=== PATIENT | male | born 2005 | race Two or more races ===

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

== ENCOUNTER 2023-08-24 22:33 | Emergency (ER) | payer OTHER, SELFPAY ==
--- OUTSIDE RECORDS SUMMARY | 2023-08-24 22:41 | XMS_ITS ---
Patient Summarization (C-CDA 2.1 CCD) Created on: August 24, 2023 JEAN GARCIA : 2005 Sex: Undifferentiated Author Organization Sample organization Care Team Providers Care Safety Spec Name Role Phone Hubert Luna Unavailable LUCAS COCHRAN Primary Care Unavailable LIBIA GUTIERREZ Attending Unavailable DIMAS, DR ZAVALA Primary Care Unavailable DIMAS, DR ZAVALA Admitting Unavailable HOY, DR ZAVALA Attending Unavailable DIMAS, DR ZAVALA Primary Care Unavailable HAY, DR MUSE Admitting Unavailable HAY, DR MUSE Attending Unavailable ELEAZAR, DR MUSE Consulting Unavailable DIMAS, DR ZAVALA Primary Care Unavailable ZIEBER, DR TORO Contreras Consulting Unavailable HAY, DR MUSE Admitting Unavailable HAY, DR MUSE Attending Unavailable HAY, DR MUSE Consulting Unavailable DIMAS, DR ZAVALA Primary Care Unavailable DIMAS, DR ZAVALA Admitting Unavailable DIMAS, DR ZAVALA Attending Unavailable DIMAS, DR ZAVALA Consulting Unavailable MARQUISE, DR VITO Carcamo Consulting Unavailable DIMAS, DR ZAVALA Primary Care Unavailable HOY, DR ZAVALA Admitting Unavailable DIMAS, DR ZAVALA Attending Unavailable DIMAS, DR ZAVALA Consulting Unavailable Lakhwinder Cochranlas M Primary Care Unavailable Yasmeen Irby Admitting Unavailable Yasmeen Irby Attending Unavailable Dimas, Lucas M Primary Care Unavailable Hubert Luna Attending Unavaila Hubert Tate Admitting Unavaila NILDA Leo Attending Unavailable NILDA SHEN Attending Unavailable Unavailable Primary Care Provider Unavailabl TESSIE Cui JR Referring Unavailable TESSIE DEWITT JR Attending Unavailable TESSIE DEWITT JR Referring Unavailable HOY, LUCAS M Primary Care Unavailable TESSIE DEWITT JR Attending Unavailable TESSIE DEWITT JR Referring Unavailable HOY, LUCAS M Primary Care Unavailable TESSIE DEWITT JR Attending Unavailable TESSIE DEWITT JR Attending Unavailable HOY, LUCAS M Referring Unavailable HOY, LUCAS M Primary Care Unavailable RENATE JR, TESSIE K Attending Unavailable LUCAS COCHRAN Referring Unavailable LUCAS COCHRAN Primary Care Unavailable Encounters Encounter Date Encounter Type Care Provider Facility Start: 07-20-2023 End: 07-20-2023 ambulatory TESSIE DEWITT [facility] Start: 06-28-2023 End: 06-29-2023 ambulatory TESSIE DEWITT JR [facility] Start: 06-14-2023 ambulatory NILDA SHEN Facili ty:[facility] Start: 06-08-2023 End: 06-08-2023 ambulatory TESSIE DEWITT [facility] Start: 05-08-2023 End: 05-09-2023 ambulatory TESSIE DEWITT JR [facility] Start: 05-04-2023 End: 05-05-2023 ambulatory TESSIE DEWITT JR [facility] Start: 05-04-2023 End: 05-04-2023 ambulatory TESSIE Lew RENATE [facility] Start: 05-04-2023 End: 05-04-2023 Office consultation new/estab patient 60 min Tessie Dewitt MD Work Phone: [facility] Comment on above: Urologic disorders ( Primary Dx); Left testicular pain; Epididymal cyst; Other microscopic hematuria Start: 03-01-2023 End: 03-02-2023 ambulatory NILDA SHEN Facility:[facility] Start: 01-25-2022 End: 01-25-[address] LUCAS COCHRAN Facility:[facility] Start: 12-20-2021 End: 12-21-[address] LUCAS COCHRAN Facility:[facility] Start: 12-02-[address] LUCAS COCHRAN Facility :[facility] Start: 11-03-2021 End: 11-04-[address] LUCAS COCHRAN Facility:[facility] Start: 11-02-2021 End: 11-02-2021 Emergency department patient visit LUCAS COCHRAN [facility] Start: 07-24-2021 Office [facility] Start: 07-24-2021 End: 07-24-2021 ambulatory Lucas Cochran [facility] Other Start: 07-10-2021 End: 07-10-2021 Emergency department patient visit Lucas Diallo Alanbrayan Facility:[facility] Start: 07-07-2021 End: 07-07-2021 ambulatory LUCAS DIMAS Facility:[facility] Immunizations Immunization Date Immunization Notes Care Provider Fa cilidavid 12-30-2020 influenza virus vaccine, unspecified formulation Tessie Dewitt Jr., MD Work Phone: [facility] Medications Current Medications Medication Drug Class(es) Dates Sig (Normalized) Sig (Original) CAM Boot as directed (1 source) Start: 07-24-2021 CAM Boot as directed as directed as directed as directed for as directed June, Active naproxen 500 mg oral tablet (2 sources) Nonsteroidal Anti-inflammatory Drug take 1 tablet by mouth every twelve hours at mealtime as needed Naproxen 500 MG 1 tablet with food or milk as needed Orally every 12 hrs for 10 days Active Aleve Not-Taking Payers Date Payer Category Payer Private Health Insurance [facility] [id number] 2022-Present [phone] [address] [address] [place] [address] [id number] 2022 Private Health Insurance [id number] 2021 Unknown 2021 Self-pay 2005 Unknown [id number] 2.16.840.1.750477.3.579.2. 902 2003 Unknown [id number] 2.16.840.1.352655.3.579.2. 593 2003 Unknown [id number] 2.16.840.1.250554.3.579.2. 593 2003 Unknown [id number] 2.16.840.1.890882.3.579.2. 593 2003 Unknown [id number] 2.16.840.1.590645.3.579.2. 1286 2003 Unknown [id number] 2.16.840.1.281872.3.579.2. 1286 2003 Unknown [id number] 2.16.840.1.345466.3.579.2. 1286 2003 Unknown [id number] 2.16.840.1.098630.3.579.2. 1286 2003 Unknown [id number] 2.16.840.1.609313.3.579.2. 1286 2003 Unknown [id number] 2.16.840.1.259122.3.579.2. 1286 2003 Unknown [id number] 2.16.840.1.296425.3.579.2. 1286 1963 Unknown [id number] 2.16.840.1.431974.3.579.2. 593 1963 Unknown [id number] 2.16.840.1.741459.3.579.2. 593 1961 Unknown [id number] 2.16.840.1.713798.3.579.2. 727 1961 Unknown [id number] 2.16.840.1.435084.3.579.2. 727 1959 Unknown [id number] 2.16.840.1.097654.19 1959 Unknown [id number] 2.16.840.1.298274.19 Unknown [id number] 2.16.840.1.103683.3.579.2. 531 Unknown [id number] 2.16.840.1.657864.3.579.2. 531 Plan of Treatment Date Care Activity Detail Author Start: 05-03-2024 Adult BMI Screening Adult BMI Screen ing [facility] Start: 05-03-2024 Tobacco Screening Tobacco Screening [facility] Start: 06-08-2023 End: 06-08-2023 Patient encounter procedure 06/08/2023 8:30 AM EDT Office Visit [facility] [address] [place] [address] [place] [address] [place] [address] Tessie Dewitt Jr., MD [facility] [place], [place] [id number] [facility] Start: 05-04-2023 End: 05-03-2024 US Retroperitoneum Ultrasound retroperitoneal complete Imaging Routine Other microscopic hematuria Expected: 05/04/2023, Expires: 05/03/[address] [facility] Work Phone: Comment on above: Expected: 05/04/2023 , Expires: 05/03/2024 Start: 05-04-2023 End: 05-03-2024 US.doppler Scrotum and testicle Ultrasound scrotum for TORSION with duplex Imaging Routine Other microscopic hematuria Expected: 05/04/2023, Expires: 05/03/2024 [facility] Comment on above: Expected: 05/04/2023 , Expires: 05/03/2024 Start: 10-27-2022 COVID-19 Vaccine ( season) COVID-19 Vaccine ( season) [facility] Start: 10-27-2022 Influenza vaccination Influenza Vacc ine [facility] Start: 2015 Depression Screening Depression Scre ening [facility] Start: 2014 DTaP,Tdap and Td Vac cines (5 - Tdap) DTaP,Tdap and Td Vaccines (5 - Tdap) [facility] Problems Active Problems Problem Classification Problem Date Documented Da te Episodic/Chronic Calculus of urinary tract (2 sources) Calculus of kidney; Translations: [Calculus of kidney] Onset: 06-08-2023 Episodic Cardiac dysrhythmias (2 sources) Palpitations; Translations: [Palpitations] Onset: 11-02-2021 Episodic Genitourinary symptoms and ill-defined conditions (8 sources) Disorder of the urinary system; Translations: [Disorder of urinary system, unspecified] Onset: 05-04-2023 05-04-2023 Episodic Malaise and fatigue (1 source) Other malaise; Translations: [OTHER MALAISE] Onset: 01-29-2022 Episodic Nonspecific chest pain (5 sources) Chest pain, unspecified; Translations: [Other chest pain] Onset: 07-11-2021 Episodic Other diseases of veins and lymphatics (2 sources) Varicocele; Translations: [Scrotal varices] Onset: 05-04-2023 05-04-2023 Episodic Other diseases of veins and lymphatics (1 source) Scrotal varices; Translations: [Scrotal varices] Onset: 05-04-2023 Episodic Other male genital disorders (2 sources) Pain of left testicle; Translations: [Left testicular pain] Onset: 05-04-2023 05-04-2023 Episodic Other male genital disorders (2 sources) Cyst of epididymis; Translations: [Cyst of epididymis] Onset: 05-04-2023 05-04-2023 Episodic Other male genital disorders (2 sources) Left testicular pain; Translations: [Left testicular pain] Onset: 05-04-2023 Episodic Other male genital disorders (1 source) Cyst of epididymis; Translations: [Cyst of epididymis] Onset: 05-04-2023 Episodic Other upper respiratory infections (4 sources) Acute pharyngitis, unspecified; Translations: [ACUTE PHARYNGITIS UNSPECIFIED] Onset: 01-25-2022 Episodic Unclassified (1 source) S99.912A - Unspecified injury of left ankle, initial encounter; Translations: [S99.912A - Unspecified injury of left ankle, initial encounter] Onset: 07-24-2021 Unclassified (1 source) R07.9 - Chest pain, unspecified; Translations: [R07.9 - Chest pain, unspecified] Onset: 07-10-2021 Viral infection (1 source) Viral infection, unspecified; Translations: [VIRAL INFECTION UNSPECIFIED] Onset: 01-29-2022 Episodic Past or Other Problems Problem Classification Problem Date Documented Da te Episodic/Chronic Other injuries and conditions due to external causes (1 source) Unspecified injury of left ankle, initial encounter Onset: 07-24-2021 Resolved: 07-24-2021 Episodic Sprains and strains (1 source) Sprain of unspecified ligament of left ankle, initial encounter Onset: 07-24-2021 Resolved: 07-24-2021 Episodic Procedures Date Procedure Procedure Detail Performing Clinician Start: 06-08-2023 Follow-up visit Follow-up TESSIE DEWITT Results Test Name Value Interpretation Reference Range Facility CT ABDOMEN AND PELVIS WO CON Ton 06-28-2023 CT ABDOMEN AND PELVIS WO CONT CT ABDOMEN AND PELVIS WO CONT CLINICAL INFORMATION: Left scrotal pain, left testicular pain, renal calculus, abnormal ultrasound. TECHNIQUE: Abdominopelvic CT without contrast. All CT scans at this facility use dose modulation, iterative reconstruction, and/or weight based dosing when appropriate to reduce radiation dose to as low as reasonably achievable. COMPARISON: Retroperitoneal scrotal ultrasound 05/08/2023. FINDINGS LOWER CHEST: The lungs are clear. No pleural or pericardial effusion. HEPATOBILIARY: Unenhanced liver and gallbladder unremarkable. No biliary dilation. PANCREAS: Unenhanced pancreas unremarkable. No pancreatic ductal dilation. SPLEEN: The unenhanced spleen is within normal limits. ADRENAL GLANDS: The unenhanced adrenal glands are within normal limits. KIDNEYS, URETERS, AND BLADDER: Punctate nonobstructing right upper pole renal calculus. Unenhanced left kidney unremarkable. No collecting system dilation. Urinary bladder unremarkable. GI TRACT AND PERITONEUM: Small and large bowel are normal in caliber. Prominent rectal stool. Normal appendix. VASCULATURE: Abdominal aorta is nonaneurysmal. LYMPH NODES: Not enlarged. REPRODUCTIVE ORGANS: Prostate unremarkable. MSK: Vertebral body heights and alignment maintained. IMPRESSION: * Punctate nonobstructing right upper pole renal calculus. Otherwise unremarkable. Approved by Resident Blayne Olivera DO on 06/28/2023 10:33 AM Toro Prince MD have personally reviewed the image(s) and agree with and/or edited the report Finalized by Toro Jarvis MD on 06/28/2023 11:29 AM Normal [facility] US RETROPERITONEAL COMPLETEo n 05-08-2023 US RETROPERITONEAL COMPLETE US RETROPERITONEAL COMPLETE Clinical history: Microhematuria Findings: Multiplanar sonography was performed of the kidneys and bladder. Comparison: None. Right kidney 9.1 cm in length. Left kidney 9.5 cm in length. Cortical echogenicity and thickness unremarkable. Punctate echogenic foci consistent with nonobstructive renal calculi in the right kidney. No ascites. Prevoid bladder volume 16 MLS. Bilateral ureteral jets visualized. Impression: * Nonobstructive renal calculi otherwise unremarkable renal ultrasound. Finalized by Hubert Gay MD on 05/08/2023 12:51 PM Normal [facility] US SCROTUM WITH DUPLEXon US SCROTUM WITH DUPLEX US SCROTUM WITH DUPLEX CLINICAL INFORMATION: Other microscopic hematuria, right epididymal cyst. Left varicocele with scrotal pain. TECHNIQUE: Real-time sonographic evaluation of the scrotum and testes was performed with schmidt scale and color flow imaging. Real time schmidt scale, color flow imaging and duplex spectral Doppler waveform analysis evaluation was performed of the major arterial inflow and venous outflow structures of the testicles with arterial and venous spectral waveforms obtained and reviewed in view of the clinical history of hematuria, right epididymal cyst, left varicocele, left scrotal pain . Duplex spectral Doppler document arterial and venous spectral waveforms documented within the major arterial inflow and venous outflow of both testicles. Arterial and venous Doppler duplex spectral waveforms were evaluated. COMPARISON: No relevant prior studies available. FINDINGS: Right testis measures 4.1 x 2.7 x 1.7 cm. Left testis measures 4.3 x 2.7 x 1.9 cm. Homogenous parenchymal echotexture of the testes. No solid testicular mass. Benign 1.3 cm right epididymal head cyst. Normal left epididymis. Symmetric color flow the testes. The arterial and venous waveforms are within normal limits. No hydrocele. No convincing varicocele. IMPRESSION: * No significant scrotal abnormality. Finalized by Juan Lubin MD on 05/08/2023 3:37 PM Normal [facility] Microscopic, urineon 024 Epithelial cells Auto (Urine sed) [#/Area] [facility] Interpretation and review of laboratory results Abnormal [facility] Mucus Ql (Urine sed) PRESENT Abnormal NONE^NONE [facility] RBC Auto (Urine sed) [#/Area] [facility] WBC Auto (Urine sed) [#/Area] [facility] UA (MICROSCOPIC)on 4 MUCOUS PRESENT Abnormal NONE [facility] R.B.CELLS <1 Normal 0-5 [facility] SQUAMOUS EPITHELIUM <1 Normal 0-5 [facility] W.B.CELLS <1 Normal 0-5 [facility] GROUP A STREP CULTUREon 12-29 S. pyogenes Ag Ql (Unsp spec) Culture Observations: NEGATIVE FOR GROUP A STREPTOCOCCUS. Normal [facility] Comment on above: Performed By: #### G RASTCX #### [facility] [address] [address] [address] [place] INFLUENZA A AND B AGon 01-25 INFLUENZA A AG Negative Normal NEGATIVE SEE COMMENT [facility] Comment on above: Performed By: #### I NFLUAB #### [facility] [address] [address] [address] [place] INFLUENZA B AG Negative Normal NEGATIVE SEE COMMENT [facility] Comment on above: Performed By: #### I NFLUAB #### [facility] [address] [place] [address] Dr. [place] INFLUPOS SEE BELOW Normal [facility] Comment on above: Result Comment: NOTE : Live attenuated influenzae vaccine viruses can cause a positive result for a rapid influenza diagnostic test if administered up to 7 days prior to rapid testing. Performed By: #### I NFLUAB #### [facility] [address] [place] [address] Dr. [place] INFLUPOS SEE BELOW Normal [facility] Comment on above: Result Comment: NOTE : Live attenuated influenzae vaccine viruses can cause a positive result for a rapid influenza diagnostic test if administered up to 7 days prior to rapid testing. Performed By: #### I NFLUAB #### [facility] [address] [place] [address] Dr. [place] INTERNAL CONTROLS Within Normal Limits Normal Wi thin Normal Limits [facility] Comment on above: Performed By: #### I NFLUAB #### [facility] [address] [place] [address] Dr. [place] STREPT SCREENon 01-25-2022 STREP SCREEN A Negative Normal NEGATIVE [facility] Comment on above: Performed By: #### S SCRN #### [facility] [address] [place] [address] Dr. [place] ECHOCARDIO M/2D COMPLETEon 1 ECHOCARDIO M/2D COMPLETE Patient: JEAN GARCIA Exam Date: 12/20/2021 : 2005 Gender:M Ordering : DR LUCAS COCHRAN . Admission #: [id number] Family : Order #: [id number] CLICK HERE TO VIEW EXAM ECHOCARDIOGRAM REPORT PROCEDURE: CARDIO PULMONARY ECHOCARDIO M/2D COMP INDICATIONS: Chest pain COMPARISON: None. DESCRIPTION: COMPLETE ECHOCARDIOGRAM Real-time transthoracic echocardiography with 2D, M-mode, spectral and color flow Doppler performed. QUALITY: Technical quality was good. LEFT VENTRICLE: Normal chamber size. Normal left ventricular wall thickness. Global left ventricular systolic function is normal. LV EF: Calculated left ventricular ejection fraction is 66%. DIASTOLIC: Normal diastolic function. ATRIAL SEPTUM: LEFT ATRIUM: Normal chamber size. RIGHT ATRIUM: Normal chamber size. RIGHT VENTRICLE: Normal chamber size. Normal right ventricular systolic function. TRICUSPID VALVE: Normal mobility and thickness. No stenosis with trivial regurgitation. No evidence of pulmonary hypertension. RVSP 17 mmHg MITRAL VALVE: Normal mobility and thickness. No mitral valve prolapse. No evidence of mitral valve stenosis. There is no mitral annular calcification. No mitral regurgitation. AORTIC VALVE: Normal trileaflet appearance. No visible sclerosis. Normal leaflet mobility. No evidence of aortic valve stenosis. No aortic regurgitation. AORTIC ROOT: Normal diameter and appearance. PULMONIC VALVE: Normal thickness and mobility. No stenosis. Trivial regurgitation. PERICARDIUM: No evidence of pericardial effusion. IVC: Collapses with inspirations. Normal size. The coronary sinus is dilated and prominent. PLEURA: CONCLUSION: 1. Normal ventricular sizes and systolic function. LVEF is 65 to 70%. 2. Normal diastolic function. 3. No significant valvular dysfunction. 4. No pericardial effusion. 5. The coronary sinus is prominent and dilated. 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 Agitated saline was not administered during this study to confirm the finding. Adult Echocardiography Procedure Report Left Ventricle LVEDD (3.7 - 5.6 cm): 4.89 cm LVESD (2.2 - 4.0 cm): 3.32 cm LVIVS thickness (0.6 - 1.2 cm): 0.78 cm LVPW thickness (0.5 - 1.0 cm): 0.82 cm e': 0.21 m/s E - e': 4.57 LVOT Max Gradient: 3.25 mm[Hg] Peak Velocity (LVOT): 0.90 m/s Mean Velocity (LVOT): 0.49 m/s LVOT Diameter 1.96 cm Left Ventricular Ejection Fraction: 65-70% Left Atrium LA Volume Index (2D A2C): 38.58 ml, 38.58 ml Left Atrium Systolic Dimension: 2.78 cm Mitral Valve MV E to A Ratio: 2.03, 1.80 Mitral Valve A-Wave Peak Velocity: 0.50 m/s, 0.51 m/s Mitral Valve E-Wave Peak Velocity: 1.01 m/s, 0.92 m/s Right Ventricle RV Internal Diastolic Dimension: 3.00 cm Aorta AO Root Diam: 3.08 cm Ascending Ao Diam: 2.02 cm Aortic Valve AoV Area (Peak Ky): 2.32 cm2, 2.32 cm2 AoV Area (VTI): 2.17 cm2, 2.17 cm2 Peak Velocity(Antegrade Flow): 1.16 m/s Peak Gradient(Antegrade Flow): 5.42 mm[Hg] Mean Velocity(Antegrade Flow): 0.80 m/s Mean Gradient(Antegrade Flow): 2.94 mm[Hg] Velocity Time Integral: 26.00 cm Tricuspid Valve Peak Velocity (Regurgitant Flow): 2.03 m/s, 1.86 m/s Peak Velocity: 0.70 m/s Pulmonic Valve Mean Gradient: 3.59 mm[Hg], 3.41 mm[Hg] Mean Velocity: 0.92 m/s, 0.90 m/s Peak Velocity: 1.17 m/s, 1.09 m/s, 1.18 m/s Peak Gradient: 5.59 mm[Hg], 5.44 mm[Hg], 4.71 mm[Hg] Right Atrium Right Atrium Systolic Pressure: 32.77 ml, 32.77 ml Dictated by: Otto Piedra M.D. on 12/28/2021 at 10:36 Approved by: Otto Piedra M.D. on 12/28/2021 at 10:56 Normal [facility] NM STRESS/REST MULTIon 12-20 NM STRESS/REST MULTI Patient: JEAN GARCIA. Exam Date: 12/20/2021 : 2005 Gender:M Ordering : DR LUCAS COCHRAN . Admission #: [id number] Family : Order #: [id number] CLICK HERE TO VIEW EXAM RADIOLOGY REPORT PROCEDURE: RADIONUCLIDE IMAGING STRESS/REST MULTI COMPARISON: None. INDICATIONS: Chest pain TECHNIQUE: Exam Description: Rest/Stress one day protocol gated SPECT Rest Imagin.3 mCi Tc-99m Cardiolite IV on 12/20/2021 Stress Imaging 29.1 mCi Tc-99m Cardiolite IV on 12/20/2021 Exercise Protocol: Ravi Heart Rate (bpm): Rest: 60 Max: 171 PMHR: 85 Blood Pressure: Rest: 96/68 Max: 142/84 Exercise Time: Minutes: 12 Seconds: 00 Stage Reached: Stage: 4 Mets 13.4 Symptoms: Rest and peak stress ECG findings were abnormal and the exercise portion of the study was Non-diagnostic per attending physician Dr. Flores due to T-waves in aVL at baseline biphasic became inverted during exercise then positive (normal) at end of rest. . For more details please see separate cardiac stress test report. FINDINGS: QUALITY OF STUDY: Good. PERFUSION DEFECT: None. LOCATION: N/A SIZE: N/A. SEVERITY: N/A. TYPE: N/A. WALL MOTION: Normal. LV SIZE: Normal. 92 mL. TID / TCD: None; 1.0 LVEF: Normal. Calculated EF 59%. SUMMARY: Myocardial perfusion imaging study is NORMAL. CONCLUSION: 1. No reversible ischemia 2. Abnormal EKG findings 3. Abnormal exercise study Dictated by: Vito Mabry MD on 12/21/2021 at 08:01 Approved by: Vito Mabry MD on 12/21/2021 at 08:02 Normal [facility] XR ankle LT min 3V*on 2021 XR ankle LT min 3V* [facility] [place] [address] XRay Report Signed Patient: Jean Garcia MR#: [id number] : 2005 Acct:[id number] Age/Sex: 16 / M ADM Date: 07/24/21 Loc: XDUCLY Room: Type: [facility] Attending Dr: Hubert Luna NP-C Ordering Provider: Hubert KEBEDEP-C Date of Service: 07/24/21 XR/XR ankle LT min 3V*: Injury of left ankle, initial encounter Copies to: Hubert Luna CLAIMS EXAMINER-C 3views LEFTankle COMPARISON:None HISTORY: LEFT ankle injury No fracture, dislocation or focal soft tissue abnormality seen. XR/XR ankle LT min 3V* IMPRESSION: No acute findings. Impression dictated by: Richard Cavanaugh M.D.07/24/2021 10:53 AM Dictation Location: [place] [address] Transcribed By: [facility] 07/24/21 1053 Dictated By: Richard Cavanaugh DO 07/24/21 1052 Signed By: 07/24/21 1053 [facility] XR ankle LT min 3V* [facility] Other XR ankle LT min 3V* [facility] Other XR ankle LT min 3V* [facility] Other XR ankle LT min 3V* [address] [email or web address] Other XR ankle LT min 3V* XRay Report [place] [email or web address] Other XR ankle LT min 3V* Signed [employer] Other XR ankle LT min 3V* Patient: Jean Garcia MR#: [id number] [email or web address] Other XR ankle LT min 3V* 726 [employer] Other XR ankle LT min 3V* : 2005 Acct:[id number] [employer] Other XR ankle LT min 3V* Age/Sex: 16 / M ADM Date: 07/24/21 [employer] Other XR ankle LT min 3V* Loc: XDUCLY Room: Type: REG CLI [employer] Other XR ankle LT min 3V* Attending Dr: Hubert Luna [employer] Other XR ankle LT min 3V* Ordering Provider: Hubert Luna [facility] [employer] Other XR ankle LT min 3V* Date of Service: 07/24/21 [employer] Other XR ankle LT min 3V* XR/XR ankle LT min 3V*: Injury of left ankle, initial encounter [employer] Other XR ankle LT min 3V* Copies to: Hubert Luna [facility] [employer] Other XR ankle LT min 3V* 3views LEFTankle [employer] Other XR ankle LT min 3V* COMPARISON:None [employer] Other XR ankle LT min 3V* HISTORY: LEFT ankle injury [employer] Other XR ankle LT min 3V* No fracture, dislocation or focal soft tissue abnormality seen. [employer] Other XR ankle LT min 3V* XR/XR ankle LT min 3V* [employer] Other XR ankle LT min 3V* IMPRESSION: No acute findings. [employer] Other XR ankle LT min 3V* Impression dictated by: Richard Cavanaugh M.D.07/24/2021 10:53 AM [employer] Other XR ankle LT min 3V* Dictation Location: [place] [address] [employer] Other XR ankle LT min 3V* Transcribed By: HI 07/24/21 1053 [employer] Other XR ankle LT min 3V* Dictated By: Richard Cavanaugh DO 07/24/21 1052 [facility] [employer] Other XR ankle LT min 3V* Signed By: [employer] Other XR ankle LT min 3V* 07/24/21 1053 No rth [facility] [employer] Other Basic Metabolic Panelon 06-26 Calcium [Mass/Vol] 9.9 mg/dL Normal 8.2-10.2 [facility] Comment on above: Performed By: #### H S TROP, CBC, BMP, CK, CKMB #### [facility] [address] [place] [address] [place] Chloride [Moles/Vol] 101 mmol/L Normal 95-114 [facility] Comment on above: Performed By: #### H S TROP, CBC, BMP, CK, CKMB #### [facility] [address] CO2 [Moles/Vol] 26.2 mmol/L Normal 22.0-30.0 [facility] Comment on above: Performed By: #### H S TROP, CBC, BMP, CK, CKMB #### [facility] [address] Creatinine [Mass/Vol] 1.13 mg/dL Normal 0.64-1.27 [facility] Comment on above: Performed By: #### H S TROP, CBC, BMP, CK, CKMB #### [facility] [address] [place] [address] [place] Creatinine Clr Calc Pharmacy 85.47 [facility] Comment on above: Result Comment: PERF ORMED BY: [place] [address] PATHOLOGIST LAST SORTER JOHNATHAN ARANDA M.D. Performed By: #### H S TROP, CBC, BMP, CK, CKMB #### [facility] [address] [place] [address] Estimated GFR ( Corrine > 60 Normal [facility] Comment on above: Result Comment: GFR estimated reference range: According to KDOQI guidelines, <60 ml/min/1.73m2 is sufficient to diagnose a patient with chronic kidney disease. Performed By: #### H S TROP, CBC, BMP, CK, CKMB #### [address] Estimated GFR (Non- Am > 60 Normal [facility] Comment on above: Performed By: #### H S TROP, CBC, BMP, CK, CKMB #### [address] Glucose [Mass/Vol] 89 mg/dL Normal 70-100 [facility] Comment on above: Result Comment: [facility] Glucose Reference Range is dependent on time and content of last meal. Glucose of more than 200 mg/dL in a nonstressed, ambulatory subject supports the diagnosis of Diabetes Mellitus. ADA recommended reference range Performed By: #### H S TROP, CBC, BMP, CK, CKMB #### [address] Potassium [Moles/Vol] 4.1 mmol/L Normal 3.5-5.1 [facility] Comment on above: Performed By: #### H S TROP, CBC, BMP, CK, CKMB #### [address] Sodium [Moles/Vol] 138 mmol/L Normal 136-146 [facility] Comment on above: Performed By: #### H S TROP, CBC, BMP, CK, CKMB #### [address] Urea nitrogen [Mass/Vol] 10 mg/dL Normal 9-23 [facility] Comment on above: Performed By: #### H S TROP, CBC, BMP, CK, CKMB #### [address] Complete Blood Count Auto Di ffon 07-10-2021 Basophils (Bld) [#/Vol] 0.1 10*3/uL Normal 0.0-0.1 [facility] Comment on above: Result Comment: PERF ORMED BY: [place] [address] PATHOLOGIST LAST SORTER JOHNATHAN ARANDA M.D. Performed By: #### H S TROP, CBC, BMP, CK, CKMB #### [address] Basophils/100 WBC (Bld) 0.8 % Normal . [facility] Comment on above: Performed By: #### H S TROP, CBC, BMP, CK, CKMB #### [address] Eosinophils (Bld) [#/Vol] 0.0 10*3/uL Normal 0.0-0.7 [facility] Comment on above: Performed By: #### H S TROP, CBC, BMP, CK, CKMB #### [address] Eosinophils/100 WBC (Bld) 0.2 % Normal . [facility] Comment on above: Performed By: #### H S TROP, CBC, BMP, CK, CKMB #### [address] Erythrocyte distribution width (RBC) [Ratio] 12.6 % Normal 12.0-14.8 [facility] Comment on above: Performed By: #### H S TROP, CBC, BMP, CK, CKMB #### [address] Hematocrit (Bld) [Volume fraction] 49.5 % High 37.0-49.0 [facility] Comment on above: Performed By: #### H S TROP, CBC, BMP, CK, CKMB #### [address] Hemoglobin (Bld) [Mass/Vol] 16.5 g/dL High 13.0-16.0 [facility] Comment on above: Performed By: #### H S TROP, CBC, BMP, CK, CKMB #### [address] Lymphocytes (Bld) [#/Vol] 1.3 10*3/uL Normal 1.20-4.8 [facility] Comment on above: Performed By: #### H S TROP, CBC, BMP, CK, CKMB #### [address] Lymphocytes/100 WBC (Bld) 14.0 % Normal . [facility] Comment on above: Performed By: #### H S TROP, CBC, BMP, CK, CKMB #### [address] MCH (RBC) [Entitic mass] 32.4 pg Normal 25.0-35.0 [facility] Comment on above: Performed By: #### H S TROP, CBC, BMP, CK, CKMB #### [address] MCV (RBC) [Entitic vol] 96.8 fL Normal 78-98 [facility] Comment on above: Performed By: #### H S TROP, CBC, BMP, CK, CKMB #### [address] Mean Corpuscular HGB Conc 33.5 g/dL Normal 31.0-37.0 [facility] Comment on above: Performed By: #### H S TROP, CBC, BMP, CK, CKMB #### [address] Monocytes (Bld) [#/Vol] 0.7 10*3/uL Normal 0.1-1.00 [facility] Comment on above: Performed By: #### H S TROP, CBC, BMP, CK, CKMB #### [address] Monocytes/100 WBC (Bld) 7.6 % Normal . [facility] Comment on above: Performed By: #### H S TROP, CBC, BMP, CK, CKMB #### [address] Neutrophils (Bld) [#/Vol] 6.9 10*3/uL Normal 1.2-7.7 [facility] Comment on above: Performed By: #### H S TROP, CBC, BMP, CK, CKMB #### [address] Neutrophils/100 WBC (Bld) 77.4 % Normal . [facility] Comment on above: Performed By: #### H S TROP, CBC, BMP, CK, CKMB #### [address] Nucleated RBC/100 WBC (Bld) [Ratio] 0.0 % Normal 0-0.5 [facility] Comment on above: Performed By: #### H S TROP, CBC, BMP, CK, CKMB #### [address] Platelet mean volume (Bld) [Entitic vol] 7.3 fL Normal 6.6-10.1 [facility] Comment on above: Performed By: #### H S TROP, CBC, BMP, CK, CKMB #### [address] Platelets (Bld) [#/Vol] 253 10*3/uL Normal 150-450 [facility] Comment on above: Performed By: #### H S TROP, CBC, BMP, CK, CKMB #### [address] RBC (Bld) [#/Vol] 5.11 10*6/uL Normal 4.50-5.30 [facility] Comment on above: Performed By: #### H S TROP, CBC, BMP, CK, CKMB #### [address] WBC (Bld) [#/Vol] 9.0 10*3/uL Normal 4.5-13.5 [facility] Comment on above: Performed By: #### H S TROP, CBC, BMP, CK, CKMB #### [address] Creatine Kinaseon 07-10-2021 CK [Catalytic activity/Vol] 111 U/L Normal 22-269 [facility] Comment on above: Performed By: #### H S TROP, CBC, BMP, CK, CKMB #### [address] Creatinine Kinase MBon 07-10 CK.MB [Mass/Vol] 1.7 ng/mL Normal 0.6-6.3 [facility] Comment on above: Performed By: #### H S TROP, CBC, BMP, CK, CKMB #### [address] CKMB Relative Index 1.5 % Normal 0.00-2.50 [facility] Comment on above: Performed By: #### H S TROP, CBC, BMP, CK, CKMB #### [address] D-Dimer High Sensitivityon 0 07-10-2021 D-Dimer High Sensitivity < 200 Normal 0-243 [facility] Comment on above: Result Comment: The reference range for D-dimer is <243 ng/mL D-dimer units. D-dimer results must be used in conjunction with a clinical pretest probability (PTP) assessment model for deep vein thrombosis (DVT) and pulmonary embolism (PE). Results <230 ng/mL d-dimer units can be used as a negative predictor in patients with low or moderate probability for DVT/PE. Results above the exclusion threshold of 230 ng/ml D-dimer units for DVT/PE may indicate the need for further diagnostic testing. D-Dimer can be increased in hospitalized patients due to co-morbid conditions. PERFORMED BY: [place] [address] PATHOLOGIST LAST SORTER JOHNATHAN ARANDA M.D. Performed By: #### P T, PTT, DDIMER #### [address] ECG 12 lead ECGon 07-10-2021 ECG 12 lead ECG [facility] [place] [address] [place] [address] Electrocardiograph Report Signed Patient: Jean Garcia MR#: [id number] [id number] : 2005 Acct:[id number] Age/Sex: 16 / M ADM Date: 07/10/21 Loc: ER Room: Type: [facility] ER Attending Dr: Ordering Provider: Yasmeen Irby MD Date of Service: 07/10/21 ECG/ECG 12 lead ECG: Chest Pain Copies to: Test Reason : Blood Pressure : 134/072 mmHG Vent. Rate : 100 BPM Atrial Rate : 100 BPM P-R Int : 142 ms QRS Dur : 082 ms QT Int : 330 ms P-R-T Axes : 087 089 072 degrees QTc Int : 425 ms Normal sinus rhythm Right atrial enlargement Borderline ECG No previous ECGs available Confirmed by YASMEEN IRBY MD ([id number]) on 07/10/2021 7:47:15 PM Referred By: Electronically Signed By:YASMEEN IRBY MD Transcribed By: MUS Signed By Yasmeen Irby MD 06/26 Normal [facility] Partial Thromboplastin Timeo n 07-10-2021 aPTT Coag (Bld) [Time] 31.3 s Normal 25.1-36.5 [facility] Comment on above: Performed By: #### P T, PTT, DDIMER #### [facility] [address] [place] [address] [place] Prothrombin Time INRon 07-10 INR Coag (PPP) [Relative time] 1.1 {INR} Normal [facility] Comment on above: Result Comment: INR Therapeutic Range A) Pre- and Peroperative OAT started two weeks before surgery. NOT HIP SURGERY: 1.5 - 2.5 HIP SURGERY: 2 - 3 B) Primary and secondary prevention of venous THROMBOSIS: 2 - 3 C) Active venous thrombosis, pulmonary embolism and prevention of recurrent venous thrombosis: 2 - 3 D) Prevention of arterial thromboembolism including patients with mechanical heart valves: 3 - 4.5 Performed By: #### P T, PTT, DDIMER #### [facility] [address] [place] [id number] [place] PT Coag (PPP) [Time] 12.7 s Normal 9.0-12.9 [facility] Comment on above: Performed By: #### P T, PTT, DDIMER #### [facility] [address] [place] [id number] [place] Troponin I High Sensitivityo n 07-10-2021 Troponin I High Sensitivity 3 pg/mL Normal 0-20 [facility] Comment on above: Result Comment: PERF ORMED BY: [place] [address] PATHOLOGIST LAST SORTER JOHNATHAN ARANDA M.D. Performed By: #### P T, PTT, DDIMER #### [address] XR chest 2V*on 07-10-2021 XR chest 2V* [facility] [place] [address] [place] [address] XRay Report Signed Patient: Jean Garcia MR#: [id number] 726 : 2005 Acct:[id number] Age/Sex: 16 / M ADM Date: 07/10/21 Loc: ER Room: Type: [facility] ER Attending Dr: Ordering Provider: Yasmeen Irby MD Date of Service: 07/10/21 XR/XR chest 2V*: Chest Pain Copies to: Yasmeen Irby MD Chest 07/10/2021. CLINICAL DATA: Left chest pain. FINDINGS: 2 views of the chest were obtained. No prior study is available for comparison. The cardiac silhouette is normal in size. The pulmonary vasculature is within normal limits. No pulmonary consolidation or collapse is identified. No pneumothorax or pleural effusion is seen. XR/XR chest 2V* IMPRESSION: No acute cardiopulmonary disease. Impression dictated by: Panfilo Whitfield Jr., M.D.07/10/2021 5:15 PM Dictation Location: [place] [address] Transcribed By: [facility] 07/10/211714 Dictated By: Panfilo Whitfield Jr, MD 07/10/211713 Signed By: 07/10/211714 Normal [facility] CBC AUTO DIFFon 07-07-2021 BASO # 0.1 103/ul Normal 0.0-0.1 [facility] Comment on above: Performed By: #### C BC #### [facility] [address] [place] [address] [address] [place] Basophils/100 WBC (Bld) 1.3 % Normal 0.2-2.0 [facility] Comment on above: Performed By: #### C BC #### [facility] [address] [place] [address] Dr. Aston [place] EO # 0.0 103/ul Normal 0.0-0.7 [facility] Comment on above: Performed By: #### C BC #### [facility] [address] [place] [address] Dr. A[place] Eosinophils/100 WBC (Bld) 0.9 % Normal 0.9-7.0 [facility] Comment on above: Performed By: #### C BC #### [facility] [address] [place] [address] Dr. Aston [place] Erythrocyte distribution width (RBC) [Ratio] 11.8 % Normal 11.0-15.0 [facility] Comment on above: Performed By: #### C BC #### [facility] [address] [place] [address] Dr. Aston El Hematocrit (Bld) [Volume fraction] 46.6 % Normal 42.0-54.0 [facility] Comment on above: Performed By: #### C BC #### [facility] [address] [place] [address] Dr. Aston [place] Hemoglobin (Bld) [Mass/Vol] 15.6 g/dL Normal 14.0-18.0 [facility] Comment on above: Performed By: #### C BC #### [facility] [address] [place] [address] Dr. Aston El IG # 0.02 10e3/ul Normal 0.00-0.03 [facility] Comment on above: Performed By: #### C BC #### [facility] [address] [place] [address] Dr. Aston El IG % 0.4 % Normal 0.0-0.5 [facility] Comment on above: Performed By: #### C BC #### [facility] [address] [place] [address] Dr. Aston El LYMPH # 1.7 103/ul Normal 1.2-3.8 [facility] Comment on above: Performed By: #### C BC #### [facility] [address] [place] [address] Dr. Aston El Lymphocytes/100 WBC (Bld) 36.1 % Normal 20.5-60.0 [facility] Comment on above: Performed By: #### C BC #### [facility] [address] [place] [address] Dr. Aston El MANUAL DIFF REQ NO Normal [facility] Comment on above: Performed By: #### C BC #### [facility] [address] [place] [address] Dr. Aston El MCH (RBC) [Entitic mass] 32.0 pg Normal 25.9-34.0 [facility] Comment on above: Performed By: #### C BC #### [facility] [address] [place] [address] Dr. Aston El MCHC (RBC) [Mass/Vol] 33.5 g/dL Normal 29.9-35.2 [facility] Comment on above: Performed By: #### C BC #### [facility] [address] [place] [address] Dr. Aston El MCV (RBC) [Entitic vol] 95.5 fL Critically high 80.0-94.0 [facility] Comment on above: Performed By: #### C BC #### [facility] [address] [place] [address] Dr. Aston El MONO # 0.5 103/ul Normal 0.3-0.8 [facility] Comment on above: Performed By: #### C BC #### [facility] [address] [place] [address] Dr. Aston El Monocytes/100 WBC (Bld) 10.4 % Normal 1.7-12.0 [facility] Comment on above: Performed By: #### C BC #### [facility] [address] [place] [address] Dr. Aston El NEUT # 2.3 103/ul Normal 1.4-6.5 [facility] Comment on above: Performed By: #### C BC #### [facility] [address] [place] [address] [address] Aston El Neutrophils/100 WBC (Bld) 50.9 % Normal 43.0-75.0 [facility] Comment on above: Performed By: #### C BC #### [facility] [address] [place] [address] [address] Aston El Platelet mean volume (Bld) [Entitic vol] 8.6 fL Critically low 9.5-13.5 [facility] Comment on above: Performed By: #### C BC #### [facility] [address] [place] [address] [address] Aston El PLT 240 103/ul Normal 150-450 [facility] Comment on above: Performed By: #### C BC #### [facility] [address] [place] [address] Dr. Aston El RBC 4.88 106/ul Normal 4.70-6.10 [facility] Comment on above: Performed By: #### C BC #### [facility] [address] [place] [address] Dr. Aston El WBC 4.6 103/ul Normal 4.0-11.0 [facility] Comment on above: Performed By: #### C BC #### [facility] [address] [place] [address] Dr. Aston El D-DIMERon 07-07-2021 D-DIMER 0.19 mg/L FEU Normal 0.19-0.50 [facility] Comment on above: Performed By: #### D DIM #### [facility] [address] [place] [address] Dr. Aston El D-DIMER COMMENTS SEE BELOW Normal [facility] Comment on above: Result Comment: Incr eases in D-Dimer concentration observed with thromboembolic events can be variable due to localization, size, and age of the thrombus. Therefore, a thromboembolic event cannot be diagnosed with certainty on the basis of the reference range. D-Dimers may also be elevated for a variety of disorders including: advanced age, , coronary disease, cancer, liver disease, infection, inflammation, hematoma, DIC, trauma, post-surgery, diabetes, thrombolytic or anticoagulant therapy, stress, and generalized hospitalization. Performed By: #### D DIM #### [facility] [address] [place] [address] Dr. Aston El PROF CHEM 8 (BAS METB)on Anion gap [Moles/Vol] 10.7 mmol/L Normal [facility] Comment on above: Performed By: #### H STROPN, BMP #### [facility] [address] [place] [address] Dr. A[place] Calcium [Mass/Vol] 9.3 mg/dL Normal 8.5-10.1 [facility] Comment on above: Performed By: #### H STROPN, BMP #### [facility] [address] [place] [address] Dr. Aston El Chloride [Moles/Vol] 103 mmol/L Normal 98-107 [facility] Comment on above: Performed By: #### H STROPN, BMP #### [facility] [address] [place] [address] Dr. A[place] CO2 [Moles/Vol] 30.2 mmol/L Normal 21.0-32.0 [facility] Comment on above: Performed By: #### H STROPN, BMP #### [facility] [address] [place] [address] Dr. Aston El Creatinine [Mass/Vol] 1.10 mg/dL Normal 0.70-1.30 [facility] Comment on above: Performed By: #### H STROPN, BMP #### [facility] [address] [place] [address] Dr. A[place] El EGFR-AF GREEK >60 Normal >=60 [facility] Comment on above: Performed By: #### H STROPN, BMP #### [facility] [address] [place] [address] Dr. A[place] EGFR-NON AF GREEK >60 Normal >=60 [facility] Comment on above: Performed By: #### H STROPN, BMP #### [facility] [address] [place], [place] [id number] Dr. Aston El Glucose [Mass/Vol] 94 mg/dL Normal 74-106 [facility] Comment on above: Performed By: #### H OLGA LIDIA, BMP #### [facility] [address] [place] [address] Dr. Aston El Potassium [Moles/Vol] 3.9 mmol/L Normal 3.5-5.1 [facility] Comment on above: Performed By: #### H OLGA LIDIA, BMP #### [facility] [address] [place] [address] Dr. A[place] Sodium [Moles/Vol] 140 mmol/L Normal 136-145 [facility] Comment on above: Performed By: #### H OLGA LIDIA, BMP #### [facility] [address] [place] [address] Dr. Aston El Urea nitrogen [Mass/Vol] 11.0 mg/dL Normal 6.4-19.3 [facility] Comment on above: Performed By: #### H OLGA LIDIA, BMP #### [facility] [address] [place] [address] Dr. Aston El Urea nitrogen/Creatinine [Mass ratio] 10.0 mg/mg Normal [facility] Comment on above: Performed By: #### H OLGA LIDIA, BMP #### [facility] [address] [place] [address] Dr. Aston El TROPONIN, HIGH SENSITIVITYon 07-07-2021 HSTROP 4.2 pg/mL Normal 4.0-76.1 [facility] Comment on above: Result Comment: CUT- OFF POINTS HAVE BEEN ESTABLISHED BASED ON THE FOURTH UNIVERSAL DEFINITIONS OF MYOCARDIAL INFARCTION. THE UPPER REFERENCE LIMIT (URL) OF TROPONIN, DEFINED THE 99TH PERCENTILE OF cTnI DISTRIBUTION IN A REFERENCE POPULATION, HAS BEEN CONFIRMED THE DECISION THRESHOLD FOR [place] DIAGNOSIS. Performed By: #### H OLGA LIDIA, BMP #### [facility] [address] [place] [address] Dr. Aston El XR CHEST 1 Von 07-07-2021 XR CHEST 1 V EXAMINATION: XR CHEST 1 V HISTORY: CHEST PAIN, UNSPECIFIED COMPARISON: XR chest 03/10/2019 FINDINGS: LUNGS: No significant pulmonary parenchymal abnormalities. VASCULATURE: No increased pulmonary vasculature. PLEURA: No pneumothorax, effusion, or pleural thickening. CARDIAC: No cardiomegaly or cardiac silhouette abnormality. MEDIASTINUM: No visible mass or adenopathy. BONES: No fracture or visible bone lesion. OTHER: Negative. IMPRESSION: 1. Normal examination. Electronically authenticated by: TORO ALCANTAR Date: 2021-07-07 10:10 Normal [facility] Social History Date Type Detail Facility Start: 08-07-2018 End: 05-04-2023 Sex Assigned At [employer] [facility] Start: 05-04-2023 Tobacco smoking stat [facility] Never smoked tobacco [facility] walkby [facility] Start: 05-04-2023 Tobacco use and exposure Smokeless tobacco non-user [facility] Start: 05-04-2023 Alcohol intake Lifetime non-d linda (finding) [facility] Start: 08-07-2018 End: 05-04-2023 [facility] Start: 2005 Sex Assigned At Not on file [employer] Unknown if ever smoked [employer] [facility] Childcare Unknown [facility] Vital Signs Date Time Vital Sign Value Performing Clinician Facility 05-04-2023 10:20-0500 Body height 170.2 cm Tessie Dewitt Jr., MD Work Phone: [facility] 05-04-2023 10:20-0500 Body mass index (BMI) [Ratio] 19.73 kg/m2 Tessie Dewitt Jr., MD Work Phone: [facility] 05-04-2023 10:20-0500 Body weight 57.15 kg Tessie Dewitt Jr., MD Work Phone: [facility] 05-04-2023 10:20-0500 Diastolic blood pressure 63 mm[Hg] Tessie Dewitt Jr., MD Work Phone: [facility] 05-04-2023 10:20-0500 Heart rate 74 /min Tessie Dewitt Jr., MD Work Phone: [facility] 05-04-2023 10:20-0500 Systolic blood pressure 116 mm[Hg] Tessie Dewitt Jr., MD Work Phone: [facility] 07-24-2021 11:00-0400 Body height 167.64 cm Hubert Luna Other [facility] Other 07-24-2021 11:00-0400 Body mass index (BMI) [Ratio] 21.04 kg/m2 Hubert Luna Other [facility] Other 07-24-2021 11:00-0400 Body temperature 98 [degF] Hubert Luna Other [facility] Other 07-24-2021 11:00-0400 Body weight 59.15 kg Hubert Luna Other [facility] Other 07-24-2021 11:00-0400 Diastolic blood pressure 68 mm[Hg] Hubert Luna Other [facility] Other 07-24-2021 11:00-0400 Respiratory rate 18 /min Hubert Luna Other [facility] Other 07-24-2021 11:00-0400 SaO2% (BldA) [Mass fraction] 98 % Hubert Luna Other [facility] Other 07-24-2021 11:00-0400 Systolic blood pressure 116 mm[Hg] Hubert Luna Other [facility] Other History of Present illness Narrative 05-04-2023 Tessie Dewitt Jr., MD - 05/04/2023 10:00 AM EST Note Date & Type Note Facility 05-04-2023 History of Present illness Narrative Images from the original note were not included. [address] [place] [address] [address] [facility] [id number] Patient: Jean Garcia Date of : 2005 Encounter Date: 05/04/2023 History of Present Illness: Chief Complaint: Left scrotal pain. The patient is a 18 y.o. male, a new patient, and is here for chief complaint left scrotal pain. Presents with his grandfather. Patient notes he has had the discomfort for awhile, which does radiate up into his abdomen, but it has gotten a lot worse the last 6 months. It has not constant but rather intermittent. It was a size he notes of a grape, now smaller more the size of an almond. 0 voiding complaints. Remote hypospadias repair elsewhere. No personal or family history of bleeding disorder. No history of stones, gross hematuria, or UTIs. He notes he gets difficulty with walking and shooting pain going up to his stomach with this. Does have keloids. Urinalysis today: No results for input(s): EXTPOCURCO , EXTPOCURCH , EXTPOCAPP , EXTPOCURBS , EXTPOCURBIL , EXTPOCUKET , EXTPOCUSPG , EXTPOCUHGB , EXTPOCUPRO , EXTPOCUURO , EXTPOCULEU , EXTPOCUNIT , EXTPOCUWBC , EXTPOCUBLD , EXTPOCURBC , EXTPOCUCRY , EXTPOCUBAC , EXTPOCUTREP , EXTPOCUPH , EXTPOCULEE in the last 72 hours. Last BUN and creatinine: No results found for: BUN No results found for: CREATININE Last PSA: No results found for: PSA No results found for: PROSTATICSP Past Medical, Family, and Social History Update: The following portions of the patient's history were reviewed and updated as appropriate: allergies, current medications, past family history, past medical history, past social history, past surgical history and problem list. Past Medical History: Diagnosis Date Keloid No past surgical history on file. History reviewed. No pertinent family history. No current outpatient medications on file. No current facility-administered medications for this visit. (All medications reviewed and updated by provider since last office visit or hospitalization) Allergies: Patient has no known allergies. Tobacco History: Social History Tobacco Use Smoking Status Never Smokeless Tobacco Never (If patient a smoker, smoking cessation counseling offered) Social History: Social History Substance and Sexual Activity Alcohol Use Never Review of Systems: Constitutional: Normal activity and energy. Patient denies change in appetite, weight loss or gain, malaise (depression), chills, fever, or diaphoresis (sweating). Eyes: Patient denies vision changes or diplopia (double vision). Ears, Nose, Nose and Throat: Patient denies tinnitus (ringing in ears), hearing loss, epistaxis (nose bleed), hoarseness, and dysphagia (hard to swallow). Respiratory: Patient denies dyspnea (shortness of breath), cough, hemotypsis (blood in sputum), and wheezing. Cardiovascular: Patient denies chest pain, palpitations, and shortness of breath. Gastrointestinal: Pt. States The upper part of his stomach is in pain. Hard to sit when the pain starts for long periods of time. Musculoskeletal: Patient denies joint pain/stiffness, weakness, swelling, and backache. Neurologic: Patient denies weakness, dizziness, loss of consciousness, transient ischemic symptoms, and seizures. Integument: Patient denies rashes and non-healing lesions. Psychiatric: Patient denies increased nervousness, mood changes, or depression. Endocrine: Patient denies thyroid trouble, heat or cold intolerance, diabetes, excessive thirst, hunger, and excessive urination. Blood Disorders: Patient denies anemia, easy bruising, and easy bleeding. Physical Exam: BP 116/63 Pulse 74 Ht 170.2 cm (5' 7 ) Wt 57.2 kg (126 lb) BMI 19.73 kg/m Alert, pleasant, without signs of acute illness, and in no distress. Respirations unlabored . Skin dry on examination now. No flank or abdominal masses or tenderness. Normal gait. Normal scrotum. Penis by history status post hypospadias repair appears circumcised nicely with nice open meatus on the glans and no evidence of fistula. Testicles descended bilaterally without mass or tenderness. No palpable inguinal hernia. Small right epididymal head cyst. Grade 2-3 left varicocele. Left forearm keloid Assessment and Plan: Jean was seen today for varicocele. Diagnoses and all orders for this visit: Urologic disorders Left testicular pain Epididymal cyst Other microscopic hematuria - Ultrasound retroperitoneal complete; Future - Ultrasound scrotum for TORSION with duplex; Future - Microscopic, urine; Future Problem List Unprioritized Urologic disorders - Primary Overview 1. Single without paternity with Left orchalgia, progressive onset estimated October 2022 with left varicocele ultrasound elsewhere 12/14/2022, apparent grade 2-3 exam 05/04/2023; grandfather Bryan 2. Right epididymal cyst ultrasound elsewhere 1.7 cm on 12/14/2022 3. Concern for microscopic hematuria urine dip elsewhere 03/13/2023 4. Significant keloid formation 5. By history hypospadias repair at [facility] as an Other microscopic hematuria Relevant Orders Ultrasound retroperitoneal complete Ultrasound scrotum for TORSION with duplex Microscopic, urine Left testicular pain Epididymal cyst Follow-up: I reviewed the followin. Discharge summary regarding apnea 2003 2. Urine dip positive trace blood 03/13/2023 3. Ultrasound report elsewhere 12/14/2022 1.7 cm right epididymal cyst and left varicocele normal testicles 4. Urology provider note 03/13/2023 regarding left-sided scrotal pain, epididymal cyst, and varicocele with planned referral because partner who does varicocele repair was going away on maternity leave Epididymal cysts, they are benign nature, and natural history and management options were described. We reviewed these are not malignant and are not associated with testis cancer. They may enlarge, and additional cysts may appear. Asymptomatic cysts may become asymptomatic, and these can be managed with excision, which procedure can result in obstruction of the ejaculatory tract on the involved side and potentially infertility. I reviewed 15% of adult men have a varicocele, and 80-85% of the time these do not cause fertility issue. I reviewed only extremely rarely is a varicocele operated for pain, and I actually have never done so in 29 years. We discussed possible extratesticular cause of scrotal pain from a renal issue. I discussed the criteria for documentation of microscopic hematuria, at least 3-5 red or 3-5 white cells per high-powered field microscopy in the absence of other obvious benign source of hematuria on a microscopic urinalysis specimen. We reviewed that to date this patient's evaluation as not demonstrated these findings. Grandfather mention there was some concern regarding possible infertility with a varicocele, and we did discuss we certainly could order a semen analysis to check, but the patient and grandfather today declined that. Return 1 month with confirmatory scrotal ultrasound, retroperitoneal ultrasound, and microscopic urinalysis. I reviewed there are substantial potential risks and complications with varicocele repair including but not limited to anesthetic risks, testis atrophy, hydrocele formation, persistent/recurrent varicocele, and persistent or increased pain among others. We reviewed our facility/group does not offer venous embolization, and that could be pursued if desired by the patient perhaps at [facility]. Thank you very much. I appreciate being asked to help with this patient's care. TESSIE DEWITT JR, MD This note was created with the assistance of a speech recognition program. While intending to generate a timely document that accurately reflects the content of the visit, no guarantee can be provided that every grammatical or spelling mistake has been or will be identified or corrected. Thank you for your understanding. documented in this encounter [facility] Evaluation note 07-24-2021 Note Date & Type Note Facility 07-24-2021 Evaluation note Encounter Date Diagnosis Assessment Notes June, Injury of left ankle, initial encounter (ICD-10 - S99.912A) June, Sprain of left ankle, unspecified ligament, initial encounter (ICD-10 - S93.402A) Rest, ice for 20 minutes every hour. Keep your ankle elevated. Walk on foot as tolerated. Follow up with pcp in 14 days if no improvement. Complete excercises as directed. I personally reviewed and interrpreuted all of the xray images. No appreciable fractures or bony abnormalities. I suspect the patient has developed a sprain in one of the ligaments of his ankle. I did consider septic arthtritis, however, given that there is no warmth on palpation, erythema at the knee joint, and that he is able to range the knee, septic arthritis is unlikely. Given that there is no joint laxity, complete tear of ligament is unlikely. Advised to Rice his ankle. Will place angel wrap on the ankle. I advised him to follow up with his pcp in 7 days if pain does not improve. Pt understands and agrees with the plan. [facility] Other Evaluation note Note Date & Type Note Facility Evaluation note Diagnosis Urologic disorders- Primary Unspecified disorder of urethra and urinary tract Left testicular pain Epididymal cyst Other specified disorder of male genital organs Other microscopic hematuria documented in this encounter [facility] Instructions Note Date & Type Note Facility Instructions Not on filedocumented in this en counter [facility] Summary Purpose Family History No Family History Records FoundNo Family History Records FoundNo Family History Records FoundNo Family History Records FoundNo Family History Records FoundNo Family History Records FoundNo Family History Records Found Advance Directives No Advanced Directives Records FoundNo Advanced Directives Records FoundNo Advanced Directives Records FoundNo Advanced Directives Records FoundNo Advanced Directives Records FoundNo Advanced Directives Records FoundNo Advanced Directives Records Found Additional Source Comments REASON FOR VISIT (unrecogniz ed section and content) Reason Comments Varicocele (unrecognized sect ion and content) No Status Records FoundNo Status Records FoundNo Status Records FoundNo Status Records FoundNo Status Records FoundNo Status Records FoundNo Status Records Found INFORMATION SOURCE (unrecogn ized section and content) DATE CREATED AUTHOR 12/22/2021 [facility] DATE CREATED AUTHOR AUTHOR'S ORGANIZ ATION 03/23/2022 [facility] DATE CREATED AUTHOR AUTHOR'S ORGANIZ ATION 04/01/2022 [facility] DATE CREATED AUTHOR AUTHOR'S ORGANIZ ATION 03/03/2023 [facility] DATE CREATED AUTHOR AUTHOR'S ORGANIZ ATION 05/06/2023 [facility] DATE CREATED AUTHOR AUTHOR'S ORGANIZ ATION 06/29/2023 [facility] DATE CREATED AUTHOR AUTHOR'S ORGANIZ ATION 07/22/2023 [facility] [employer] FOR RECORDS PERTAINING TO PATIENTS WHO ARE OR HAVE BEEN ENROLLED IN A CHEMICAL DEPENDENCY/SUBSTANCEABUSE PROGRAM, SOME INFORMATION MAY BE OMITTED. This clinical summary was aggregated from multiple sources. Caution should be exercised in using it in the provision of clinical care. This summary normalizes information from multiple sources, and as a consequence, information in this document may materially change the coding, format and clinical context of patient data. In addition, data may be omitted in some cases. CLINICAL DECISIONS SHOULD BE BASED ON THE PRIMARY CLINICAL RECORDS. [employer] [facility]. provides no warranty or guarantee of the accuracy or completeness of information in this document.
[2023-08-24 22:52] VITALS: BP 125/62; PULSE 71; TEMP 36.8; O2SAT 99; BMI 19.9
--- NOTE | 2023-08-24 23:41 | ED.HEATRA1 ---
HPI HPI - Head Injury General Chief complaint: Head Injury Stated complaint: Neck Pain, Visual Disturbance Time Seen by Provider: 08/24/23 23:35 Mode of arrival: walk-in Limitations: no limitations History of Present Illness HPI Narrative: playing baseball. Describes running to home plate and was knocked down. fell injuring his left neck and also LOC for about 5 sec. Took tylenol and his headache improved. States headache has returned and he feels dizzy. Has left sided neck pain. No weakness or numbness or his extremities. no pain or his chest or abdomen Related Data Allergies Allergy/AdvReac Type Severity Reaction Status Date / Time No Known Drug Allergies Allergy Verified 08/24/23 22:57 Opioid HPI Opioid Management Most Recent Pain and Opioid Data: Last Pain Scale 6 10/11/22 14:59 Review of Systems ROS Status of ROS 10 or more systems reviewed and unremarkable except as noted in history and below [facility] Social History Smoking status: Never smoker Exam Constitutional Vital Signs, click to edit/add: Last Vital Signs Temp 98.2 F 08/24/23 22:52 Pulse 71 08/24/23 22:52 Resp 18 08/24/23 22:52 BP 125/62 08/24/23 22:52 Pulse Ox 99 08/24/23 22:52 Common normals: no apparent distress, average body habitus, oriented x3, no limitations, healthy appearing, alert and well nourished [facility] Common normals: normocephalic and head/scalp atraumatic Eye Common normals: PERRL and EOMs intact bilaterally Neck & C-Spine Other: tender left neck Respiratory Common normals: normal respiratory effort, no retractions, no use of accessory muscles and clear to auscultation bilaterally Cardio Common normals: regular rate, regular rhythm, S1 normal heart sound and S2 normal heart sound GI Common normals: Normal to inspection, nondistended, normoactive bowel sounds present, soft to palpation and non-tender Extremity Common normals: normal to inspection and full ROM Neuro Common normals: oriented x3, CN's II-XII intact bilaterally, moves all extremities and no focal motor deficits Psych Appearance: grossly normal Course Vital Signs Vital signs: Vital Signs Temperature 98.2 F 06/28/24 22:52 Pulse Rate 71 08/24/23 22:52 Respiratory Rate 18 08/24/23 22:52 Blood Pressure 125/62 08/24/23 22:52 Pulse Oximetry 99 08/24/23 22:52 Temperature 98.2 F 08/24/23 22:52 Pulse Rate 71 08/24/23 22:52 Respiratory Rate 18 08/24/23 22:52 Blood Pressure 125/62 08/24/23 22:52 Pulse Oximetry 99 08/24/23 22:52 MDM - Head Injury MDM Narrative Medical decision making narrative: patient sustained a concussion while playing baseball. Was knocked down running to a base. Describes LOC for about 5 seconds. Now presents with headache, dizziness and neck pain. Dizziness has improved without intervention. CT C-spine and brain without acute findings. Patient discharged home with Toradol and norflex and is advised to follow up with his doctor Imaging Data CT scan - abdomen: Radiologist's impression: ITS Impressions Cervical Spine CT 08/24/23 23:49 IMPRESSION: 1. No CT evidence of an acute fracture involving the cervical vertebral column. 2. If there is further clinical indication to evaluate the spinal canal, cord or for ligamentous injury consider MRI as it would be more sensitive.. Electronically authenticated by: LINDSAY ASTORGA Date: 08/25/2023 00:[address] 08/24/23 23:49 IMPRESSION: No CT evidence of an acute intracranial hemorrhage or acute calvarial fracture. Electronically authenticated by: LINDSAY ASTORGA Date: 08/25/2023 00:47 Discharge Plan Discharge Stand Alone Forms: Portal Instructions Chief Complaint: Head Injury Clinical Impression: Concussion with loss of consciousness, Cervical myofascial strain Patient Disposition: Home, Self-Care Print Language: Togolese Instructions: Cervical Strain (ED), Concussion (ED) Additional Instructions: follow up with Dr cabrera next week Referrals: Jaime Cabrera MD [Primary Care Provider] - 1 week
--- NOTE | 2023-08-24 23:49 | CT_ITS ---
The [address] [address] Patient Name: ARNALDO ASCENCIO MRN: [id number] date: 2005 Sex: M Assigned Patient Location: ER Current Patient Location: ER Accession/Order Number: [id number] Exam Date: 08/24/2023 23:59 Report Date: 08/25/2023 00:47 At the request of: PATRICK LANDRY Procedure: CT head/brain wo con EXAM: CT head/brain wo con HISTORY: head injury COMPARISON: None. TECHNIQUE: Axial images of the brain were obtained from the skull base to the vertex without contrast enhancement. Sagittal and coronal reformations were provided. FINDINGS: No acute intracranial hemorrhage, extra-axial fluid collection, midline shift or mass effect is seen. No space-occupying lesion is demonstrated. There is no evidence of hydrocephalus or an acute ischemic event. Bone windows reveal no evidence of an acute calvarial fracture. The visualized paranasal sinuses and mastoids are well-aerated. CT/CT head/brain wo con IMPRESSION: No CT evidence of an acute intracranial hemorrhage or acute calvarial fracture. Electronically authenticated by: LINDSAY ASTORGA Date: 08/25/2023 00:47
--- NOTE | 2023-08-24 23:49 | CT_ITS ---
The [place] [id number] Patient Name: ARNALDO ASCENCIO MRN: [id number] date: 2005 Sex: M Assigned Patient Location: ER Current Patient Location: ER Accession/Order Number: [id number] Exam Date: 08/24/2023 23:59 Report Date: 08/25/2023 00:51 At the request of: PATRICK LANDRY Procedure: CT cervical spine wo con EXAM: CT cervical spine wo con HISTORY: head injury COMPARISON: None. TECHNIQUE: Axial images of the cervical vertebral column were obtained without contrast enhancement. Sagittal and coronal reformations were provided. COMMENT: The lack of intradural contrast and streak artifact from bone about the vertebral column limit evaluation for disc protrusion, bulge and the spinal canal in general. FINDINGS: There is loss of the normal lordosis and straightening of the cervical vertebral column. No CT evidence of an acute fracture, subluxation or significant loss of vertebral body height. No significant loss of disc space, endplate osteophyte formation or malalignment at the craniocervical junction. While assessment is again suboptimal on this noncontrast CT, no obvious disc protrusion, significant disc bulging or convincing region of high-grade spinal canal stenosis. The neural foramina appear patent. CT/CT cervical spine wo con IMPRESSION: 1. No CT evidence of an acute fracture involving the cervical vertebral column. 2. If there is further clinical indication to evaluate the spinal canal, cord or for ligamentous injury consider MRI as it would be more sensitive.. Electronically authenticated by: LINDSAY ASTORGA Date: 08/25/2023 00:51
[2023-08-25] MEDS: ORPHENADRINE CITRATE 100 MG TABLET.ER PO (01:53)
[2023-08-25] MEDS: PREDNISONE 20 MG TABLET 60 MG PO (01:53)
== END 2023-08-25 02:46 | disposition home or self-care (01) ==
PROVIDERS: Emergency Provider Internal Medicine; PCP Family Medicine
DX: S16.1XXA Strain of muscle, fascia and tendon at neck level, initial encounter (principal); S06.0X1A Concussion with loss of consciousness of 30 minutes or less, initial encounter; W50.0XXA Accidental hit or strike by another person, initial encounter; Y93.64 Activity, baseball
CPT/HCPCS: 70450; 72125; 99284; J7512

== ENCOUNTER 2024-09-09 08:56 | Outpatient (OUT) | payer OTHER, SELFPAY ==
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
--- OUTSIDE RECORDS SUMMARY | 2024-08-31 23:49 | XMS_ITS | Encounter Summary ---
Author Organization [employer] Address [address] [place] [address] Care Team Providers Care Licensed Physical Therapist Assistant Name Role Phone Jaime Cochran Primary Care Provider [phone] Reason for Visit * Reason Comments Neck Pain No injury Encounter Details Date Type Department Care Team (Late st Contact Info) Description 08/31/2024 11:49 PM EDT - 09/01/2024 12:40 AM EDT Emergency [facility] ED [address] [place] [address] Geoff Maddox MD [phone] [place] [address] Neck pain (Primary Dx) Discharge Disposition: Home or Self Care Social History Tobacco Use Types Packs/Day Years Used Date Smoking Tobacco: Never Smokeless Tobacco: Never AUDIT-C Answer Date Recorded Q1: How often do you have a drink containing alcohol? Never 11/26/2023 Q2: How many drinks containi ng alcohol do you have on a typical day when you are drinking? Patient does not drink Q3: How often do you have si x or more drinks on one occasion? Never 11/26/2023 Sex and Gender Information Value Date Recorded Sex Assigned at Not on file Legal Sex Male 2:25 PM EDT Gender Identity Not on file Sexual Orientation Not on file documented as of this encounter Last Filed Vital Signs Vital Sign Reading Time Taken Comments Blood Pressure 129/61 08/31/2024 11:49 PM EDT Pulse 70 08/31/2024 11:49 PM EDT Temperature 36.8 C (98.3 F) 08/31/2024 11:49 PM EDT Respiratory Rate 16 08/31/2024 11:49 PM EDT Oxygen Saturation 100% 08/31/2024 11:49 PM EDT Inhaled Oxygen Concentration - - Weight - - Height - - Body Mass Index - - documented in this encounter Discharge Instructions * Discharge Instructions* Geoff Maddox MD - 09/01/2024 12:26 AM EDT Take extra strength Tylenol every 6 hours for 2 days Take ibuprofen every 6 hours as needed for pain * Attachments The following attachments cannot be sent through Care Everywhere. * Neck Pain Exercises (Maldivian) documented in this encounter Medications at Time of Discharge tiZANidine (Zanaflex) 2 MG tablet Take 1 tablet (2 mg) by mouth Daily as needed for muscle spasms. 7 tablet 09/01/2024 documented as of this encounter ED Notes * Geoff Maddox MD - 08/31/2024 11:45 PM EDT EMERGENCY DEPARTMENT ENCOUNTER Pt Name: Jean Garcia Birthdate 2005 Date of evaluation: 08/31/2024 CHIEF COMPLAINT Chief Complaint Patient presents with Neck Pain No injury HISTORY OF PRESENT ILLNESS HPI Jean Garcia is a 19 y.o. male who presents to the emergency department with neck pain, he woke upwith symptoms 2 days ago. He has decreased range of motion of the neck. No fever no numbness no weakness of the extremities, no bowel incontinence or bladder incontinence. No injury. He has tried Biofreeze. Vazo-awb-hfwswui medication. He would like a work note. REVIEW OF SYSTEMS Review of Systems No past medical history on file. CURRENT MEDICATIONS Previous Medications CYCLOBENZAPRINE (FLEXERIL) 10 MG TABLET Take 1 tablet (10 mg) by mouth 3 times daily as needed for muscle spasms for up to 4 days. DEXAMETHASONE (DECADRON) 4 MG TABLET Take 1 tablet (4 mg) by mouth daily (with breakfast) for 7 days. ALLERGIES Patient has no known allergies. SOCIAL HISTORY Social History Socioeconomic History Marital status: Single Spouse name: Not on file Number of children: Not on file Years of education: Not on file Highest education level: Not on file Occupational History Not on file Tobacco Use Smoking status: Never Smokeless tobacco: Never Substance and Sexual Activity Alcohol use: Not on file Drug use: Not on file Sexual activity: Not on file Other Topics Concern Not on file Social History Narrative Not on file Social Drivers of Health Financial Resource Strain: Not on file Food Insecurity: No Food Insecurity (07/20/2023) Received from [facility] Hunger Screening Within the past 12 months we worried whether our food would run out before we got money to buy more.: Never True Within the past 12 months the food we bought just didn't last and we didn't have money to get more.: Never True Transportation Needs: Not on file Physical Activity: Not on file Stress: Not on file Social Connections: Not on file Intimate Partner Violence: Not on file Housing Stability: Not on file PHYSICAL EXAM Vitals: 08/31/24 2349 BP: 129/61 BP Location: Right arm Patient Position: Sitting Pulse: 70 Resp: 16 Temp: 36.8 ??C (98.3 ??F) SpO2: 100% Physical Exam Vitals and nursing note reviewed. Constitutional: Appearance: He is not toxic-appearing. Musculoskeletal: Cervical back: Tenderness present. Muscular tenderness present. Decreased range of motion. Skin: General: Skin is warm. Coloration: Skin is not jaundiced. Neurological: Mental Status: He is alert. Sensory: Sensation is intact. Motor: Motor function is intact. Gait: Gait is intact. Deep Tendon Reflexes: Reflexes are normal and symmetric. Psychiatric: Behavior: Behavior normal. Thought Content: Thought content normal. SCREENINGS Maryse Coma Scale Best Eye Response: Spontaneous Best Verbal Response: Oriented Best Motor Response: Follows commands Maryse Coma Scale Score: 15 Medical decision making DIAGNOSTIC RESULTS Procedures/EKG: Physician EKG interpretation can be found in [facility] if done Radiologist results reviewed: No orders to display LABS: Labs Reviewed - No data to display RADIOLOGY : Medications ordered: Medications traMADol (Ultram) tablet 50 mg (50 mg Oral Given 09/01/24 0030) Diagnoses as of 09/01/24 0032 Neck pain * No order type specified * Our workup consisted of ordering/reviewing: No orders of the defined types were placed in this encounter. MDM: 19 y.o. presented with neck pain. The differential diagnosis considered: Muscle spasm, myofascial pain. Diagnostic tests considered but not performed: C-spine x-ray. Clinically no fracture no subluxation. Consideration for escalation of care with: diagnostics esr, clinically not septic hence not orderedunlikely, epidural abscess.. Prescription medications considered but not prescribed: oxycodone po. Will trial alternative to opiates. . REVAL: CRITICAL CARE TIME PROCEDURES: Procedures FINAL IMPRESSION 1. Neck pain DISPOSITION/PLAN DISPOSITION Discharge 09/01/2024 12:25:31 AM PATIENT REFERRED TO: Your primary care doctor In 5 days I prescribed: New Prescriptions TIZANIDINE (ZANAFLEX) 2 MG TABLET Take 1 tablet (2 mg) by mouth Daily as needed for muscle spasms. (Comment: this report has been produced using speech recognition software and may contain errors related to that system including errors in grammar, punctuation, and spelling, as well as words and phrases) Geoff Maddox MD (electronically signed) Geoff Maddox MD 09/01/24 003 documented in this encounter Plan of Treatment Not on file documented as of this encounter Visit Diagnoses Diagnosis Neck pain- Primary Cervicalgia documented in this encounter Administered Medications Inactive Administered Medications - up to 3 most recent administrations Medication Order MAR Action Action Date Dose Rate Site traMADol (Ultram) tablet 50 mg 50 mg, Oral, Once, On Sun09/01/24 at 0030, For 1 dose Given 09/01/2024 12:30 AM EDT 50 mg documented in this encounter Active and Recently Administered Medications Times are shown in EDT. Scheduled Medication Order 08/30/2024 08/31/2024 09/01/2024 traMADol (Ultram) tablet 50 mg (COMPLETED) 50 mg, Oral, Once, On Sun09/01/24 at 0030, For 1 dose 0030 (Given - Provid er: Deepika Reeves RN) documented in this encounter Care Teams Licensed Physical Therapist Assistant Relationship Specialty Start Date End Date Jaime Cochran [address] [place] [id number] PCP - General 11/22/23 08/31/24 documented as of this encounter
--- OUTSIDE RECORDS SUMMARY | 2024-09-09 09:02 | XMS_ITS | Encounter Summary ---
Author Organization [facility] Address [address] [place] [address] Phone Care Team Providers Care Middle School Technology Teacher Name Role Phone Generic Provider, No Assigned Pcp MD Primary Car e Provider Unavailable Encounter Details Date Type Department Care Team (Latest Contact Info) Description 09/02/2024 Travel Social History Tobacco Use Types Packs/Day Years Used Date Smoking Tobacco: Never Smokeless Tobacco: Never Alcohol Use Standard Drinks/Week Comments Not Currently 0 (1 standard drink = 0.6 oz pur e alcohol) Sex and Gender Information Value Date Recorded Sex Assigned at Not on file Legal Sex Male 1:20 PM EST Gender Identity Not on file Sexual Orientation Not on file documented as of this encounter Functional Status * Calculated C-SSRS Risk Score (Lifetime/Recent) Answer Date of Assessment Author No Risk Indicated 09/02/2024 7:29 AM EDT Jean Brown RN * [place] Suicide Severity Rating Scale (Screener/Recent Self-Report) Question Answer Date of Assessment Author 1. Wish to be (Past 1 Month) No 025 7:29 AM EDJean Guevara, SHARLA 2. Non-Specific Active Suici marco Thoughts (Past 1 Month) No 09/02/2024 7:29 AM HIRALT Jeff Hernandez, RN 6. Suicidal Behavior (Lifetime) No 7:29 AM Jean Ballesteros, SHARLA documented as of this encounter Plan of Treatment Upcoming Encounters Date Type Department Care Team (Late st Contact Info) Description 10/09/2024 8:40 AM EDT Office Visit [facility] [address] [place] [id number] Cliff Fernandes, EGG PASTEURIZER-SETTLEMENT WORKER [address] [facility] [address] [facility], [address] [place] [address] documented as of this encounter Visit Diagnoses Not on filedocumented in this encounter Care Teams Middle School Technology Teacher Relationship Specialty Start Date End Date Generic Provider, No Assigned Pcp, [place] [address] PCP - General Cloth Printing Inspector 09/02/24 documented as of this encounter
--- OUTSIDE RECORDS SUMMARY | 2024-09-09 09:03 | XMS_ITS | Clinical Summary ---
Author Organization [facility] Address [address] [place] [address] Phone Care Team Providers Care Club Director Name Role Phone Generic Provider, No Assigned Pcp MD Primary Car e Provider Unavailable Allergies No known active allergies Medications No known medications Encounters Date Type Department Care Team Description 09/02/2024 7:23 AM EDT - 09/02/2024 9:33 AM EDT Emergency [facility] Emergency Medicine [address] [place] [address] Reno Keen DO Chest pain, unspecified type (Primary Dx); Neck pain Discharge Disposition: Home 09/02/2024 Travel from Last 3 Months Social History Tobacco Use Types Packs/Day Years Used Date Smoking Tobacco: Never Smokeless Tobacco: Never Tobacco Cessation:Counseling Given: Not Answered Alcohol Use Standard Drinks/Week Comments Not Currently 0 (1 standard drink = 0.6 oz pur e alcohol) Sex and Gender Information Value Date Recorded Sex Assigned at Not on file Legal Sex Male 1:20 PM EST Gender Identity Not on file Sexual Orientation Not on file Last Filed Vital Signs Vital Sign Reading Time Taken Comments Blood Pressure 126/76 09/02/2024 9:31 AM EDT Pulse 80 09/02/2024 9:31 AM EDT Temperature 36.4 C (97.5 F) 09/02/2024 9:31 AM EDT Respiratory Rate 14 09/02/2024 9:31 AM EDT Oxygen Saturation 100% 09/02/2024 9:31 AM EDT Inhaled Oxygen Concentration - - Weight 59 kg (130 lb) 09/02/2024 7:26 AM EDT Height 170.2 cm (5' 7 ) 09/02/2024 7:26 AM EDT Body Mass Index 20.36 09/02/2024 7:26 AM EDT Plan of Treatment Upcoming Encounters Date Type Department Care Team (Late st Contact Info) Description 10/09/2024 8:40 AM EDT Office Visit [facility] [address] [place] [id number] Cliff Fernandes, WEEKEND ANCHOR-FIELD NURSE [address] [facility], [address] [place] [address] Health Maintenance Due Date Last Done Comments HIV Screening 2003 Lipid Panel 2003 Yearly Adult Physical 2003 MMR Vaccines (1 of 1 - Stand seema series) 2004 Hearing Screening (#1) 2007 Varicella Vaccines (1 of 2 - 13+ 2-dose series) 2016 HPV Vaccines (1 - Male 3-dos e series) 2018 Meningococcal B Vaccine (1 o f 2 - Standard) 2019 Hepatitis C Screening 2021 Hepatitis B Vaccines (1 of 3 - 19+ 3-dose series) 2022 DTaP/Tdap/Td Vaccines (2 - T d or Tdap) 11/07/2022 10/10/2022 COVID-19 Vaccine (1 - 2023-2 5 season) 2023 Influenza Vaccine (#1) 2024 12/30/2020 Zoster Vaccines (1 of 2) 2053 HIB Vaccines Aged Out No longer eligi ble based on patient's age to complete this topic Hepatitis A Vaccines Aged Out No long er eligible based on patient's age to complete this topic IPV Vaccines Aged Out No longer eligi ble based on patient's age to complete this topic Meningococcal Vaccine Aged Out No shivani almita eligible based on patient's age to complete this topic Pneumococcal Vaccine: Pediat rics and At-Risk Adult Patients Aged Out No longer mumtaz gible based on patient's age to complete this topic Rotavirus Vaccines Aged Out No longer eligible based on patient's age to complete this topic Procedures Procedure Name Priority Date/Time Associated Diagnosis Comments SERIAL TROPONIN, 1 HOUR STAT 09/02/2024 8:[address] CERVICAL SPINE WO IV CONTRAST STAT 09/02/2024 8:[address] HEAD WO IV CONTRAST STAT 8:05 AM EDT SERIAL TROPONIN-INITIAL STAT 09/02/2024 7:48 AM EDT MAGNESIUM STAT 09/02/2024 7:48 AM EDT COMPREHENSIVE METABOLIC PANEL STAT 09/02/2024 7:48 AM EDT CBC WITH AUTO DIFFERENTIAL STAT 09/02/2024 7:48 AM EDT TROPONIN SERIES- (INITIAL, 1 HR) STAT 09/02/2024 7:48 AM EDT XR CHEST 1 VIEW STAT 09/02/2024 7:39 AM EDT ECG 12-LEAD STAT 09/02/2024 7:33 AM EDT from Last 3 Months Results * Troponin, High Sensitivity, 1 Hour (09/02/2024 8:44 AM EDT) [facility] Troponin I, High Sensitivity 3 0 - 20 ng/L LAB IMMUNOASSAY METHOD 09/02/2024 9:17 AM EDT [facility] Blood Venous blood specimen / Unknown Venipuncture / Unknown 09/02/2024 8:44 AM EDT 09/02/2024 8:[address] [facility] - 09/02/2024 9:17 AM EDT Less than 99th percentile of normal range cutoff- Female and children under 18 years old <14 ng/L; Male <21 ng/L: Negative Repeat testing should be performed if clinically indicated. Female and children under 18 years old 14-50 ng/L; Male 21-50 ng/L: Consistent with possible cardiac damage and possible increased clinical risk. Serial measurements may help to assess extent of myocardial damage. >50 ng/L: Consistent with cardiac damage, increased clinical risk and myocardial infarction. Serial measurements may help assess extent of myocardial damage. NOTE: Children less than 1 year old may have higher baseline troponin levels and results should be interpreted in conjunction with the overall clinical context. NOTE: Troponin I testing is performed using a different testing methodology at [facility] than at other [facility]. Direct result comparisons should only be made within the same method. us Reno Keen DO LAB BLOOD ORDERABLES Final R esult [facility] [address] [place] [address] * CT cervical spine wo IV contrast (09/02/2024 8:05 AM EDT) Anatomical Region Laterality Modality Neuro Computed Tomogra phy 09/02/2024 8:23 AM EDT 09/02/2024 8:23 AM EDT Impressions 09/02/2024 8:22 AM EDT No evidence of an acute fracture or subluxation. MACRO: None. Signed by: Mic Moffett 09/02/2024 8:22 AM Dictation workstation: [id number] Narrative 09/02/2024 8:22 AM EDT Interpreted By: Mic Moffett, STUDY: CT CERVICAL SPINE WO IV CONTRAST; 09/02/2024 8:05 am INDICATION: Signs/Symptoms:neck trauma. COMPARISON: None. ACCESSION NUMBER(S): [id number] ORDERING CLINICIAN: RENO KEEN TECHNIQUE: Unenhanced axial images were obtained through the cervical spine. The axial data was utilized to reconstruct images in sagittal and coronal planes. FINDINGS: No acute fracture is identified. No subluxation is seen. Facet joints demonstrate a normal alignment. Prevertebral soft tissues are within normal limits. No lytic or blastic lesion is noted. Procedure Note Mic Moffett MD - 09/02/2024 Interpreted By: Mic Moffett, STUDY: CT CERVICAL SPINE WO IV CONTRAST; 09/02/2024 8:05 am INDICATION: Signs/Symptoms:neck trauma. COMPARISON: None. ACCESSION NUMBER(S): [id number] ORDERING CLINICIAN: RENO KEEN TECHNIQUE: Unenhanced axial images were obtained through the cervical spine. The axial data was utilized to reconstruct images in sagittal and coronal planes. FINDINGS: No acute fracture is identified. No subluxation is seen. Facet joints demonstrate a normal alignment. Prevertebral soft tissues are within normal limits. No lytic or blastic lesion is noted. IMPRESSION: No evidence of an acute fracture or subluxation. MACRO: None. Signed by: Mic Moffett 09/02/2024 8:22 AM Dictation workstation: [id number] us Reno Keen DO IMG CT PROCEDURES Final Resu lt * CT head wo IV contrast (09/02/2024 8:05 AM EDT) Anatomical Region Laterality Modality Neuro Computed Tomogra phy 09/02/2024 8:22 AM EDT 09/02/2024 8:22 AM EDT Impressions 09/02/2024 8:21 AM EDT No evidence of an acute intracranial process. MACRO: None. Signed by: Mic Moffett 09/02/2024 8:21 AM Dictation workstation: [id number] Narrative 09/02/2024 8:21 AM EDT Interpreted By: Mic Moffett, STUDY: CT HEAD WO IV CONTRAST; 09/02/2024 8:05 am INDICATION: Signs/Symptoms:head trauma. COMPARISON: None. ACCESSION NUMBER(S): [id number] ORDERING CLINICIAN: RENO KEEN TECHNIQUE: Unenhanced images were obtained through the brain. FINDINGS: The ventricles appear normal in size and position. There is no mass effect or midline shift. No acute intracranial hemorrhage is identified. No extra-axial fluid collections are seen. No intraparenchymal mass lesions are identified. Bone windows demonstrate no evidence of an acute calvarial fracture. Procedure Note Mic Moffett MD - 09/02/2024 Interpreted By: Mic Moffett, STUDY: CT HEAD WO IV CONTRAST; 09/02/2024 8:05 am INDICATION: Signs/Symptoms:head trauma. COMPARISON: None. ACCESSION NUMBER(S): [id number] ORDERING CLINICIAN: RENO KEEN TECHNIQUE: Unenhanced images were obtained through the brain. FINDINGS: The ventricles appear normal in size and position. There is no mass effect or midline shift. No acute intracranial hemorrhage is identified. No extra-axial fluid collections are seen. No intraparenchymal mass lesions are identified. Bone windows demonstrate no evidence of an acute calvarial fracture. IMPRESSION: No evidence of an acute intracranial process. MACRO: None. Signed by: Mic Moffett 09/02/2024 8:21 AM Dictation workstation: [id number] us Reno Keen DO IMG CT PROCEDURES Final Resu lt * CBC and Auto Differential (09/02/2024 7:48 AM EDT) WBC 4.4 4.4 - 11.3 x10*3/uL LAB HEMATOLOGY METHOD 09/02/2024 7:[facility] nRBC 0.0 0.0 - 0.0 /100 WBCs LAB HEMATOLOGY METHOD 09/02/2024 7:58 AM [facility] RBC 4.73 4.50 - 5.90 x10*6/uL LAB HEMATOLOGY METHOD 09/02/2024 7:58 AM [facility] Hemoglobin 14.7 13.5 - 17.5 g/dL LAB HEMATOLOGY METHOD 09/02/2024 7:58 AM [facility] Hematocrit 43.2 41.0 - 52.0 % LAB HEMATOLOGY METHOD 09/02/2024 7:58 AM [facility] MCV 91 80 - 100 fL LAB HEMATOLOGY METHOD 09/02/2024 7:58 AM [facility] MCH 31.1 26.0 - 34.0 pg LAB HEMATOLOGY METHOD 09/02/2024 7:58 AM [facility] MCHC 34.0 32.0 - 36.0 g/dL LAB HEMATOLOGY METHOD 09/02/2024 7:58 AM [facility] RDW 11.8 11.5 - 14.5 % LAB HEMATOLOGY METHOD 09/02/2024 7:58 AM [facility] Platelets 228 150 - 450 x10*3/uL LAB HEMATOLOGY METHOD 09/02/2024 7:58 AM [facility] Neutrophils % 45.7 40.0 - 80.0 % LAB HEMATOLOGY METHOD 09/02/2024 7:58 AM [facility] Immature Granulocytes %, Automated 0.2 0.0 - 0.9 % LAB HEMATOLOGY METHOD 09/02/2024 7:58 AM [facility] Comment:Immature Granulocyte Count (IG) includes promyelocytes, myelocytes and metamyelocytes but does not include bands. Percent differential counts (%) should be interpreted in the context of the absolute cell counts (cells/UL). Lymphocytes % 42.4 13.0 - 44.0 % LAB HEMATOLOGY METHOD 09/02/2024 7:58 AM [facility] Monocytes % 8.5 2.0 - 10.0 % LAB HEMATOLOGY METHOD 09/02/2024 7:58 AM [facility] Eosinophils % 1.8 0.0 - 6.0 % LAB HEMATOLOGY METHOD 09/02/2024 7:58 AM [facility] Basophils % 1.4 0.0 - 2.0 % LAB HEMATOLOGY METHOD 09/02/2024 7:58 AM [facility] Neutrophils Absolute 1.99 1.20 - 7.70 x10*3/uL LAB HEMATOLOGY METHOD 09/02/2024 7:58 AM [facility] Comment:Percent differential counts (%) should be interpreted in the context of the absolute cell counts (cells/uL). Immature Granulocytes Absolute, Automated 0.01 0.00 - 0.70 x10*3/uL LAB HEMATOLOGY METHOD 09/02/2024 7:58 AM [facility] Lymphocytes Absolute 1.85 1.20 - 4.80 x10*3/uL LAB HEMATOLOGY METHOD 09/02/2024 7:58 AM [facility] Monocytes Absolute 0.37 0.10 - 1.00 x10*3/uL LAB HEMATOLOGY METHOD 09/02/2024 7:58 AM [facility] Eosinophils Absolute 0.08 0.00 - 0.70 x10*3/uL LAB HEMATOLOGY METHOD 09/02/2024 7:58 AM EDT [facility] Basophils Absolute 0.06 0.00 - 0.10 x10*3/uL LAB HEMATOLOGY METHOD 09/02/2024 7:58 AM EDT [facility] Blood Venous blood specimen / Unknown Venipuncture / Unknown 09/02/2024 7:48 AM EDT 09/02/2024 7:56 AM EDT Reno Keen DO LAB BLOOD ORDERABLES Final R esult [facility] [address] [place] [address] * Troponin I, High Sensitivity, Initial (09/02/2024 7:48 AM EDT) Pathologist [facility] Troponin I, High Sensitivity 3 0 - 20 ng/L LAB IMMUNOASSAY METHOD 09/02/2024 8:23 AM EDT [facility] Blood Venous blood specimen / Unknown Venipuncture / Unknown 09/02/2024 7:48 AM EDT 09/02/2024 7:56 AM EDT Narrative [facility] - 09/02/2024 8:23 AM EDT Less than 99th percentile of normal range cutoff- Female and children under 18 years old <14 ng/L; Male <21 ng/L: Negative Repeat testing should be performed if clinically indicated. Female and children under 18 years old 14-50 ng/L; Male 21-50 ng/L: Consistent with possible cardiac damage and possible increased clinical risk. Serial measurements may help to assess extent of myocardial damage. >50 ng/L: Consistent with cardiac damage, increased clinical risk and myocardial infarction. Serial measurements may help assess extent of myocardial damage. NOTE: Children less than 1 year old may have higher baseline troponin levels and results should be interpreted in conjunction with the overall clinical context. NOTE: Troponin I testing is performed using a different testing methodology at [facility] than at other [facility]. Direct result comparisons should only be made within the same method. us Reno Keen DO LAB BLOOD ORDERABLES Final R esult Performing Organization Address City/[facility]/ZIP Co de Phone Number [facility] [address] [place] [address] * Magnesium (09/02/2024 7:48 AM EDT) [facility] Magnesium 1.98 1.60 - 2.40 mg/dL LAB CHEMISTRY METHOD 09/02/2024 8:15 AM EDT [facility] Blood Venous blood specimen / Unknown Venipuncture / Unknown 09/02/2024 7:48 AM EDT 09/02/2024 7:56 AM EDT Reno Keen DO LAB BLOOD ORDERABLES Final R esult Performing Organization Address [facility]/ZIP Co de Phone Number [facility] [place] [address] * (ABNORMAL) Comprehensive Metabolic Panel (09/02/2024 7:48 AM EDT) [facility] Glucose 94 74 - 99 mg/dL LAB CHEMISTRY METHOD 09/02/2024 8:15 AM [facility] Sodium 138 136 - 145 mmol/L LAB CHEMISTRY METHOD 09/02/2024 8:15 AM [facility] Potassium 4.0 3.5 - 5.3 mmol/L LAB CHEMISTRY METHOD 09/02/2024 8:15 AM [facility] Chloride 105 98 - 107 mmol/L LAB CHEMISTRY METHOD 09/02/2024 8:15 AM [facility] Bicarbonate 28 21 - 32 mmol/L LAB CHEMISTRY METHOD 09/02/2024 8:15 AM [facility] Anion Gap 9(L) 10 - 20 mmol/L LAB CHEMISTRY METHOD 09/02/2024 8:15 AM [facility] Urea Nitrogen 11 6 - 23 mg/dL LAB CHEMISTRY METHOD 09/02/2024 8:15 AM [facility] Creatinine 1.04 0.50 - 1.30 mg/dL LAB CHEMISTRY METHOD 09/02/2024 8:15 AM [facility] eGFR >90 >60 mL/min/1. 73m*2 LAB CHEMISTRY METHOD 09/02/2024 8:15 AM [facility] Comment: Calculations of estimated GFR are performed using the 2020 CKD-EPI Study Refit equation without the race variable for the IDMS-Traceable creatinine methods. https://jasn.asnjournals.org/content//ASN.9632299364 Calcium 9.2 8.6 - 10.3 mg/dL LAB CHEMISTRY METHOD 09/02/2024 8:15 AM EDT [facility] Albumin 4.7 3.4 - 5.0 g/dL LAB CHEMISTRY METHOD 09/02/2024 8:15 AM [facility] Alkaline Phosphatase 55 33 - 120 U/L LAB CHEMISTRY METHOD 09/02/2024 8:15 AM [facility] Total Protein 6.9 6.4 - 8.2 g/dL LAB CHEMISTRY METHOD 09/02/2024 8:15 AM [facility] AST 13 9 - 39 U/L LAB CHEMISTRY METHOD 09/02/2024 8:15 AM [facility] Bilirubin, Total 0.5 0.0 - 1.2 mg/dL LAB CHEMISTRY METHOD 09/02/2024 8:15 AM [facility] ALT 10 10 - 52 U/L LAB CHEMISTRY METHOD 09/02/2024 8:15 AM [facility] Comment:Patients treated wit h Sulfasalazine may generate falsely decreased results for ALT. Blood Venous blood specimen / Unknown Venipuncture / Unknown 09/02/2024 7:48 AM EDT 09/02/2024 7:56 AM EDT us Reno Keen DO LAB BLOOD ORDERABLES Final R esult [facility] [address] [place] [address] * XR chest 1 view (09/02/2024 7:39 AM EDT) Anatomical Region Laterality Modality Thoracic, Chest Computed Radiogr aphy 09/02/2024 8:21 AM EDT 09/02/2024 8:21 AM EDT Impressions 09/02/2024 8:19 AM EDT No radiographic evidence of an acute cardiopulmonary process. MACRO: None. Signed by: Mic Moffett 09/02/2024 8:19 AM Dictation workstation: [id number] Narrative 09/02/2024 8:19 AM EDT Interpreted By: Mic Moffett, STUDY: XR CHEST 1 VIEW; 09/02/2024 7:39 am INDICATION: Signs/Symptoms:Chest Pain. COMPARISON: None. ACCESSION NUMBER(S): [id number] ORDERING CLINICIAN: RENO KEEN FINDINGS: CHEST/LUNGS: The cardiac and mediastinal silhouettes are within normal limits for the technique. No focal areas of consolidation are noted. No effusion or pneumothorax is seen. UPPER ABDOMEN: No remarkable upper abdominal findings. OSSEOUS STRUCTURES: No acute changes. Procedure Note Mic Moffett MD - 09/02/2024 Interpreted By: Mic Moffett, STUDY: XR CHEST 1 VIEW; 09/02/2024 7:39 am INDICATION: Signs/Symptoms:Chest Pain. COMPARISON: None. ACCESSION NUMBER(S): [id number] ORDERING CLINICIAN: RENO KEEN FINDINGS: CHEST/LUNGS: The cardiac and mediastinal silhouettes are within normal limits for the technique. No focal areas of consolidation are noted. No effusion or pneumothorax is seen. UPPER ABDOMEN: No remarkable upper abdominal findings. OSSEOUS STRUCTURES: No acute changes. IMPRESSION: No radiographic evidence of an acute cardiopulmonary process. MACRO: None. Signed by: Mic Moffett 09/02/2024 8:19 AM Dictation workstation: [id number] us Reno Keen DO IMG XR PROCEDURES Final Resu lt * ECG 12 lead (09/02/2024 7:33 AM EDT) Ventricular Rate 69 BPM MUSE Atrial Rate 69 BPM MUSE OK Interval 140 ms MUSE QRS Duration 92 ms MUSE QT Interval 364 ms MUSE QTC Calculation(Baze tt) 390 ms MUSE P [place] 38 degrees MUSE R [place] 76 degrees MUSE T [place] 50 degrees MUSE QRS Count 11 beats MUSE Q Onset 220 ms MUSE P Onset 150 ms MUSE P Offset 190 ms MUSE T Offset 402 ms MUSE QTC Fredericia 381 ms MUSE 09/02/2024 7:33 AM EDT 09/06/2024 11:43 AM EDT Narrative MUSE - 09/06/2024 11:43 AM EDT Normal sinus rhythm Normal ECG No previous ECGs available See ED provider note for full interpretation and clinical correlation Confirmed by Marisa Sexton ([id number]) on 09/06/2024 11:43:37 AM Procedure Note Marisa Sexton PA-C - 09/06/2024 Normal sinus rhythm Normal ECG No previous ECGs available See ED provider note for full interpretation and clinical correlation Confirmed by Marisa Sexton ([id number]) on 09/06/2024 11:43:37 AM Reno Keen DO ECG ORDERABLES Final Result Performing Organization Address City/State/[facility] Co de Phone Number MUSE from Last 3 Months Insurance [employer] Care Teams Club Director Relationship Specialty Start Date End Date Generic Provider, [place] [address] PCP - General Ice Cream Scooper 09/02/24
--- OUTSIDE RECORDS SUMMARY | 2024-09-09 09:03 | XMS_ITS | Clinical Summary ---
Author Organization [facility] Address [address] [place] [address] Care Team Providers Care Client Service Coordinator Name Role Phone Unavailable Primary Care Provider Unavailabl e Allergies No known active allergies Medications cyclobenzaprine (Flexeril) 10 MG tablet Take 1 tablet (10 mg) by mouth 3 times daily as needed for muscle spasms for up to 4 days. 10 tablet 11/22/2023 Active dexAMETHasone (Decadron) 4 MG tablet Take 1 tablet (4 mg) by mouth daily (with breakfast) for 7 days. 7 tablet 11/26/2023 Active tiZANidine (Zanaflex) 2 MG tablet Take 1 tablet (2 mg) by mouth Daily as needed for muscle spasms. 7 tablet 09/01/2024 Active Encounters Date Type Department Care Team Description 08/31/2024 11:49 PM EDT - 09/01/2024 12:40 AM EDT Emergency [facility] ED [address] [place] [address] Geoff Maddox MD Neck pain (Primary Dx) Discharge Disposition: Home or Self Care 08/31/2024 Travel from Last 3 Months Social History Tobacco Use Types Packs/Day Years Used Date Smoking Tobacco: Never Smokeless Tobacco: Never Tobacco Cessation:Counseling Given: Not Answered AUDIT-C Answer Date Recorded Q1: How often [...] EDT Inhaled Oxygen Concentration - - Weight 56.7 kg (125 lb) 11/26/2023 6:33 PM EDT Height 170.2 cm (5' 7 ) 11/26/2023 6:33 PM EDT Body Mass Index 19.58 11/26/2023 6:33 PM EDT Plan of Treatment Health Maintenance Due Date Last Done Comments HIV Screening 2003 MMR Vaccines (1 of 1 - Stand seema series) 2004 Depression Screening 2015 Varicella Vaccines (1 of 2 - 13+ 2-dose series) 2016 HPV Vaccines (1 - Male 3-dos e series) 2018 Meningococcal B Vaccine (1 o f 2 - Standard) 2019 Hepatitis C Screening 2021 Hepatitis B Vaccines (1 of 3 - 19+ 3-dose series) 2022 COVID-19 Vaccine (1 - 2023-2 5 season) 2023 Influenza Vaccine (#1) 2024 12/30/2020 DTaP/Tdap/Td Vaccines (2 - T d or Tdap) 10/10/2032 10/10/2022 Zoster Vaccines (1 of 2) 2053 RSV Immunization for Adults (1 - 1-dose 75+ series) 2078 HIB Vaccines Aged Out No longer eligi [...] complete this topic Pneumococcal Vaccine: Pediat rics (0 to 5 Years) and At-Risk Patients (6 to 49 Years) Aged Out No longer eligi ble based on patient's age to complete this topic RSV Immunization under 20 Months Aged Out No longer eligible based on patient's age to complete this topic Rotavirus Vaccines Aged Out No longer eligible based on patient's age to complete this topic Insurance [facility] UMR OPT [id number]
--- OUTSIDE RECORDS SUMMARY | 2024-09-09 09:03 | XMS_ITS | Clinical Summary ---
Author Organization [facility] Address [address] [place] [address] Care Team Providers Care Refrigeration Mechanic Name Role Phone Jaime Cochran MD Primary Care Provider [phone] Allergies No known active allergies Social History Tobacco Use Types Packs/Day Years Used Date Smoking Tobacco: Never Assessed Sex and Gender Information Value Date Recorded Sex Assigned at Not on file Legal Sex Male 10:53 AM EDT Gender Identity Not on file Sexual Orientation Not on file Last Filed Vital Signs Vital Sign Reading Time Taken Comments Blood Pressure 122/86 11/02/2021 12:18 PM EDT Pulse 86 11/02/2021 12:18 PM EDT Temperature 37.1 C (98.7 F) 11/02/2021 11:31 AM EDT Respiratory Rate 18 11/02/2021 12:18 PM EDT Oxygen Saturation 99% 11/02/2021 12:18 PM EDT Inhaled Oxygen Concentration - - Weight 55.3 kg (122 lb) 11/02/2021 11:31 AM EDT Height 170.2 cm (5' 7 ) 11/02/2021 11:31 AM EDT Body Mass Index 19.11 11/02/2021 11:31 AM EDT Plan of Treatment Not on file Insurance [employer] [facility] SUPERMED PPO Care Teams Refrigeration Mechanic Relationship Specialty Start Date End Date Jaime Cochran MD [address] [place] [address] PCP - General Family Medicine 11/02/21
--- OUTSIDE RECORDS SUMMARY | 2024-09-09 09:03 | XMS_ITS | Clinical Summary ---
Author Organization [facility] Address [facility] – [id number] [address] [place] [address] Care Team Providers Care Dealer Sales Rep Name Role Phone Jaime Cochran MD Primary Care Provider [phone] Allergies No known active allergies Medications No known medications Active Problems Problem Noted Date Diagnosed Date Right kidney stone 06/08/2023 Urologic disorders 05/04/2023 Overview (07/20/2023): 1. Single without paternity with Left orchalgia, progressive onset estimated October 2022 with left varicocele ultrasound elsewhere 12/14/2022, apparent grade 2-3 exam 05/04/2023, not apparent ultrasound 05/08/2023; semen analysis declined 07/20/2023; grandfather Bryan 2. Right epididymal cyst ultrasound elsewhere 1.7 cm on 12/14/2022 3. Concern for microscopic hematuria urine dip elsewhere 03/13/2023 Ruled out by microscopic urinalysis 05/04/2023 4. Significant keloid formation 5. By history hypospadias repair at [facility] as an infant 6. Urolithiasis; punctate nonobstructing right upper pole renal stone 06/28/2023 CT; Concern for possible nonobstructing right renal stones ultrasound 05/08/[address] June 2023 Left varicocele 05/04/2023 Other microscopic hematuria 05/04/2023 Epididymal cyst 05/04/2023 Left testicular pain 05/04/2023 Family History Relation Name Status Comments Father Alive Mother Alive Social History Tobacco Use Types Packs/Day Years Used Date Smoking Tobacco: Never Smokeless Tobacco: Never Tobacco Cessation:Counseling Given: Not Answered Alcohol Use Standard Drinks/Week Comments Never 0 (1 standard drink = 0.6 oz pur e alcohol) Childcare Answer Date Recorded Childcare Unknown 08/07/2018 Employment Answer Date Recorded Employment Unknown 08/07/2018 Hunger Screening Answer Date Recorded Within the past 12 months we worried whether our food would run out before we got money to buy more. Never True 07/20/2023 Within the past 12 months th e food we bought just didn't last and we didn't have money to get more. Never True 07/20/2023 Sex and Gender Information Value Date Recorded Sex Assigned at Not on file Legal Sex Male 5:10 PM EDT Gender Identity Not on file Sexual Orientation Not on file Last Filed Vital Signs Vital Sign Reading Time Taken Comments Blood Pressure 115/61 07/20/2023 8:40 AM EDT Pulse 72 07/20/2023 8:40 AM EDT Temperature - - Respiratory Rate - - Oxygen Saturation - - Inhaled Oxygen Concentration - - Weight 57.2 kg (126 lb) 07/20/2023 8:40 AM EDT Height 170.2 cm (5' 7 ) 07/20/2023 8:40 AM EDT Body Mass Index 19.73 07/20/2023 8:40 AM EDT Plan of Treatment Health Maintenance Due Date Last Done Comments DTaP,Tdap and Td Vaccines (5 - Tdap) 2014 04/28/2008, 10/24/2007, 2003, Additional history exists Depression Screening 2015 COVID-19 Vaccine (3 - 2023-2 5 season) 2023 10/08/2020, 09/15/2020 Adult BMI Screening 07/19/2024 07/20/2023 Tobacco Screening 07/19/2024 07/20/2023 Influenza Vaccine 10/27/2024 12/30/2020, , 02/08/2017, Additional history exists Medical Devices Not on file Insurance [facility] Care Teams Dealer Sales Rep Relationship Specialty Start Date End Date Jaime Cochran MD PCP - General Family Medicine 05/07/23
--- OUTSIDE RECORDS SUMMARY | 2024-09-09 09:03 | XMS_ITS | Encounter Summary ---
Author Organization [facility] Address [address] [place] [id number] Care Team Providers Care Shank Inspector Name Role Phone Dimas Jaime Primary Care Provider [phone] Encounter Details Date Type Department Care Team (Latest Contact Info) Description 08/31/2024 Travel Social History Tobacco Use Types Packs/Day [...] on file documented as of this encounter Plan of Treatment Not on file documented as of this encounter Visit Diagnoses Not on filedocumented in this encounter Care Teams Shank Inspector Relationship Specialty Start Date End Date Jaime Cochran [address] [place] [address] PCP - General 11/22/23 08/31/24 documented as of this encounter
--- OUTSIDE RECORDS SUMMARY | 2024-09-09 09:03 | XMS_ITS | Clinical Summary ---
Author Organization [facility] Address [address] [place] [address] Care Team Providers Care Diagnostic Tech Name Role Phone Unavailable Primary Care Provider Unavailabl e Social History Tobacco Use Types Packs/Day Years Used Date Smoking Tobacco: Never Assessed [place] Safety & Environment Answer Date Rec orded Fear of Current or Ex-Partner Not on file Emotionally Abused Not on file 04/19/2023 Physically Abused Not on file 04/19/2023 Sexually Abused Not on file 04/19/2023 Physically or Sexually Abused Not on file Sex and Gender Information Value Date Recorded Sex Assigned at Not on file Legal Sex Male 12:22 AM EDT Gender Identity Not on file Sexual Orientation Not on file Plan of Treatment Health Maintenance Due Date Last Done Comments DTaP/Tdap/Td Vaccines (1 - Tdap) 2010 Depression Screening 2015 Varicella Vaccines (1 of 2 - 13+ 2-dose series) 2016 HPV Vaccines (1 - Male 3-dos e series) 2018 Meningococcal B Vaccine (1 o f 2 - Standard) 2019 Influenza Vaccine (#1) 2024 Zoster Vaccines (1 of 2) 2053 HIB [...] 5 Years) and At-Risk Patients (6 to 64 Years) Aged Out No longer eligible b ased on patient's age to complete this topic Rotavirus Vaccines Aged Out No longer eligible based on patient's age to complete this topic Insurance [employer]
--- OUTSIDE RECORDS SUMMARY | 2024-09-09 09:09 | XMS_ITS | CCD ---
Author Organization [facility] Team Providers Care Asp Developer Name Role Phone Hubert Luna Unavailable LUCAS COCHRAN Primary Care Unavailable LIBIA GUTIERREZ Attending Unavailable RAMONITAY, DR ZAVALA Primary Care Unavailable HOY, DR ZAVALA Admitting Unavailable HOY, DR ZAVALA Attending Unavailable HOY, DR ZAVALA Primary Care Unavailable HAY, DR MUSE Admitting Unavailable HAY, DR MUSE Attending Unavailable HAY, DR MUSE Consulting Unavailable FAB, DR ZAVALA Primary Care Unavailable ZIEBER, DR MARK Contreras Consulting Unavailable HAY, DR MUSE Admitting Unavailable HAY, DR MUSE Attending Unavailable HAY, DR MUSE Consulting Unavailable HOY, DR ZAVALA Primary Care Unavailable HOY, DR ZAVALA Admitting Unavailable HOY, DR ZAVALA Attending Unavailable HOY, DR ZAVALA Consulting Unavailable WEST, DR VITO Carcamo Consulting Unavailable RAMONITAY, DR ZAVALA Primary Care Unavailable HOY, DR ZAVAAL Admitting Unavailable HOY, DR ZAVALA Attending Unavailable HOY, DR ZAVALA Consulting Unavailable NILDA SHEN Attending Unavailable NILDA SHEN Attending Unavailable TESSIE DEWITT JR Referring Unavailable TESSIE DEWITT JR Attending Unavailable TESSIE DEWITT JR Referring Unavailable HOY, LUCAS M Primary Care Unavailable TESSIE DEWITT JR Attending Unavailable TESSIE DEWITT JR Referring Unavailable HOY, LUCAS M Primary Care Unavailable TESSIE DEWITT JR Attending Unavailable TESSIE DEWITT JR Attending Unavailable HOY, LUCAS M Referring Unavailable HOY, LUCAS M Primary Care Unavailable TESSIE DEWITT JR Attending Unavailable HOY, LUCAS M Referring Unavailable HOY, LUCAS M Primary Care Unavailable Fab Lucas Primary Care Provider [phone] Unavailable Primary Care Provider UnavailLucas Cardozo MD Primary Care Provider Lucas Cochran Primary Care Provider PALOMO DAIGLE Attending Unavailable LUCAS COCHRAN Primary Care Unavailable LUCAS COCHRAN Primary Care Unavailable THAD CASTILLO Attending Unavailable LUCAS COCHRAN Primary Care Unavailable THAD CASTILLO Attending Unavailable LUCAS COCHRAN Primary Care Unavailable PALOMO DAIGLE Referring Unavailable Generic Provider MD, No Assigned Pcp Primary Car e Provider Unavailable RENO NAIR Attending Unavailable GENERIC PROVIDER, NO ASSIGNED PCP Primary Care Unavailable Ricky Andino Attending Unavailable Ricky Andino Admitting Unavailable Lucas Cochran Primary Care Unavailable Medications Current Medications Medication Drug Class(es) Dates Sig (Normalized) Sig (Original) CAM Boot as directed (1 source) Start: 07-24-2021 CAM Boot as directed as directed as directed as directed for as directed June, Active cyclobenzaprine hydrochloride 10 mg oral tablet (8 sources) Muscle Relaxant Start: 11-22-2023 End: 11-26-2023 take 1 tablet by mouth three times daily as needed for muscle spasms cyclobenzaprine (Flexeril) 10 MG tablet Take 1 tablet (10 mg) by mouth 3 times daily as needed for muscle spasms for up to 4 days. 10 tablet 11/22/2023 Active dexamethasone 4 mg oral tablet (4 sources) Corticosteroid Start: 11-26-2023 End: 12-03-2023 take 1 tablet by mouth once daily at breakfast dexAMETHasone (Decadron) 4 MG tablet Take 1 tablet (4 mg) by mouth daily (with breakfast) for 7 days. 7 tablet 11/26/2023 Active ibuprofen 800 mg oral tablet (6 sources) Nonsteroidal Anti-inflammatory Drug Start: 11-22-2023 End: 11-29-2023 take 1 tablet by mouth every eight hours as needed for pain ibuprofen 800 MG tablet Take 1 tablet (800 mg) by mouth every 8 hours as needed for mild pain (1-3) for up to 7 days. 15 tablet 11/22/2023 11/29/2023 Active naproxen 500 mg oral tablet (2 sources) Nonsteroidal Anti-inflammatory Drug take 1 tablet by mouth every twelve hours at mealtime as needed Naproxen 500 MG 1 tablet with food or milk as needed Orally every 12 hrs for 10 days Active Aleve Not-Taking tiZANidine 2 mg oral tablet (2 sources) Central alpha-2 Adrenergic Agonist Start: 09-01-2024 take 1 tablet by mouth every twenty-four hours as needed tiZANidine (Zanaflex) 2 MG tablet Take 1 tablet (2 mg) by mouth Daily as needed for muscle spasms. 7 tablet 09/01/2024 Active Start: 09-01-2024 take 1 tablet by fabiana every twenty-four hours as needed tiZANidine (Zanaflex) 2 MG tablet Take 1 tablet (2 mg) by mouth Daily as needed for muscle spasms. 7 tablet 09/01/2024 Active Completed/Discontinued Medications Medication Drug Class(es) Dates Sig (Normalized) Sig (Original) 1 ml diphenhydrAMINE hydrochloride 50 mg/ml cartridge (2 sources) Histamine-1 Receptor Antagonist Start: 11-22-2023 End: 11-22-2023 25 mg, IntraVENous, Once, On Sun11/22/23 at 1440, For 1 dose 1 ml ketorolac tromethamine 15 mg/ml cartridge (2 sources) Nonsteroidal Anti-inflammatory Drug, Cyclooxygenase Inhibitor Start: 11-22-2023 End: 11-22-2023 15 mg, IntraVENous, Once, On Sun11/22/23 at 1600, For 1 dose 2 ml metoclopramide 5 mg/ml prefilled syringe (2 sources) Dopamine-2 Receptor Antagonist Start: 11-22-2023 End: 11-22-2023 10 mg, IntraVENous, Once, On Sun11/22/23 at 1440, For 1 dose 1 ml morphine sulfate 4 mg/ml prefilled syringe (3 sources) Opioid Agonist Start: 09-02-2024 End: 09-02-2024 4 mg, intravenous, Once, On Sun09/02/24 at 0735, For 1 dose Start: 11-26-2023 End: 11-26-2023 take 1 dose by mouth every hour 4 mg, SubCUTAneous, Once, On Sun11/26/23 at 1855, For 1 dose, If oral and IV narcotics ordered, use oral first and only use IV if oral is ineffective or cannot take oral. Do Not give oral and IV within 1 hour of each other unless specifically ordered. 2 ml ondansetron 2 mg/ml injection (3 sources) Serotonin-3 Receptor Antagonist Start: 09-02-2024 End: 09-02-2024 4 mg, intravenous, Once, On Sun09/02/24 at 0735, For 1 dose, When administering via IV Push, administer over 3-5 minutes. Start: 11-22-2023 End: 11-22-2023 4 mg, IntraVENous, Once, On Sun11/22/23 at 1440, For 1 dose 50 ml sodium chloride 9 mg/ml injection (2 sources) Start: 11-22-2023 End: 11-22-2023 1,000 mL, IntraVENous, at 1,000 mL/hr, Administer over 1 Hours, Once, On Sun11/22/23 at 1440, For 1 dose traMADol hydrochloride 50 mg oral tablet (2 sources) Opioid Agonist Start: 09-01-2024 End: 09-01-2024 take 50 mg by mouth once 50 mg, Oral, Once, On Sun09/01/24 at 0030, For 1 dose Problems Active Problems Problem Classification Problem Date Documented Date Episodic/Chronic Cardiac dysrhythmias (2 sources) Palpitations; Translations: [Palpitations] Onset: 11-02-2021 Episodic Headache; including migraine (4 sources) Tension-type headache; Translations: [Tension-type headache, unspecified, not intractable] Onset: 11-22-2023 11-22-2023 Chronic Headache; including migraine (4 sources) Acute headache; Translations: [Acute nonintractable headache, unspecified headache type] 11-22-2023 Episodic Headache; including migraine (2 sources) Headache; including migraine; Translations: [Headache, unspecified] Onset: 11-22-2023 Malaise and fatigue (1 source) Other malaise; Translations: [OTHER MALAISE] Onset: 01-29-2022 Episodic Nonspecific chest pain (8 sources) Chest pain, unspecified; Translations: [Other chest [...] Translations: [ACUTE PHARYNGITIS UNSPECIFIED] Onset: 01-25-2022 Episodic Spondylosis; intervertebral disc disorders; other back problems (7 sources) Neck pain; Translations: [Cervicalgia] Onset: 08-31-2024 09-01-2024 Episodic Viral infection (1 source) Viral infection, unspecified; Translations: [VIRAL INFECTION UNSPECIFIED] Onset: 01-29-2022 Episodic Past or Other Problems Problem Classification Problem Date Documented Da te Episodic/Chronic Calculus of urinary tract (9 sources) Calculus of kidney; Translations: [Kidney stone] Onset: 06-08-2023 06-08-2023 Episodic Genitourinary symptoms and ill-defined conditions (20 sources) Other microscopic hematuria; Translations: [Disorder of urinary system, unspecified] Onset: 05-04-2023 05-04-2023 Episodic Other diseases of veins and lymphatics (9 sources) Varicocele; Translations: [Scrotal varices] Onset: 05-04-2023 05-04-2023 Episodic Other injuries and conditions due to external causes (1 source) Unspecified injury of left ankle, initial encounter Onset: 07-24-2021 Resolved: 07-24-2021 Episodic Other male genital disorders (9 sources) Pain of left testicle; Translations: [Left testicular pain] Onset: 05-04-2023 05-04-2023 Episodic Other male genital disorders (9 sources) Cyst of epididymis; Translations: [Cyst of epididymis] Onset: 05-04-2023 05-04-2023 Episodic Sprains and strains (1 source) Sprain of unspecified ligament of left ankle, initial encounter Onset: 07-24-2021 Resolved: 07-24-2021 Episodic Results Test Name Value Interpretation Reference Range Facility CBC W Auto Differential pane l (Bld)on 09-02-2024 Basophils (Bld) [#/Vol] 0.06 10*3/uL [facility] Basophils/100 WBC (Bld) 1.4 % 0.0 - 2.0 % [facility] Eosinophils (Bld) [#/Vol] 0.08 10*3/uL [facility] Eosinophils/100 WBC (Bld) 1.8 % 0.0 - 6.0 % [facility] Erythrocyte distribution width (RBC) [Ratio] 11.8 % 11.5 - 14.5 % [facility] Hematocrit (Bld) [Volume fraction] 43.2 % 41.0 - 52.0 % [facility] Hemoglobin (Bld) [Mass/Vol] 14.7 g/dL 13.5 - 17.5 g/dL [facility] Immature granulocytes (Bld) [#/Vol] 0.01 10*3/uL [facility] Immature granulocytes/100 WBC (Bld) 0.2 % 0.0 - 0.9 % [facility] Comment on above: Immature Granulocyte Count (IG) includes promyelocytes, myelocytes and metamyelocytes but does not include bands. Percent differential counts (%) should be interpreted in the context of the absolute cell counts (cells/UL). Lymphocytes (Bld) [#/Vol] 1.85 10*3/uL [facility] Lymphocytes/100 WBC (Bld) 42.4 % 13.0 - 44.0 % [facility] MCH (RBC) [Entitic mass] 31.1 pg 26.0 - 34.0 pg [facility] MCHC (RBC) [Mass/Vol] 34 g/dL 32.0 - 36.0 g/dL [facility] MCV (RBC) [Entitic vol] 91 fL 80 - 100 fL [facility] Monocytes (Bld) [#/Vol] 0.37 10*3/uL [facility] Monocytes/100 WBC (Bld) 8.5 % 2.0 - 10.0 % [facility] Neutrophils (Bld) [#/Vol] 1.99 10*3/uL [facility] Comment on above: Percent differential counts (%) should be interpreted in the context of the absolute cell counts (cells/uL). Neutrophils/100 WBC (Bld) 45.7 % 40.0 - 80.0 % [facility] Nucleated RBC/100 WBC (Bld) [Ratio] 0 % [facility] Platelets (Bld) [#/Vol] 228 10*3/uL [facility] RBC (Bld) [#/Vol] 4.73 10*6/uL [facility] WBC (Bld) [#/Vol] 4.4 10*3/uL [facility] Basophils (Bld) [#/Vol] 0.06 x10*3/uL Normal 0.00-0.10 [facility] Comment on above: Performed By: #### 5 7021-8 #### MARIANA ELMORE ([id number]) [facility] ([facility]) [address] [place] [address] 67683 Basophils/100 WBC (Bld) 1.4 % Normal 0.0-2.0 [facility] Comment on above: Performed By: #### 5 7021-8 #### MARIANA ELMORE ([id number]) [facility] ([facility]) [address] [place] [address] 29218 Eosinophils (Bld) [#/Vol] 0.08 x10*3/uL Normal 0.00-0.70 [facility] Comment on above: Performed By: #### 5 7021-8 #### MARIANA ELMORE ([id number]) [facility] ([facility]) [address] [place] [address] 37763 Eosinophils/100 WBC (Bld) 1.8 % Normal 0.0-6.0 [facility] Comment on above: Performed By: #### 5 7021-8 #### MARIANA ELMORE ([id number]) [facility] ([facility]) [address] [place] [address] 81913 Erythrocyte distribution width (RBC) [Ratio] 11.8 % Normal 11.5-14.5 [facility] Comment on above: Performed By: #### 5 7021-8 #### MARIANA ELMORE ([id number]) [facility] ([facility]) [address] [place] [address] 07203 Hematocrit (Bld) [Volume fraction] 43.2 % Normal 41.0-52.0 [facility] Comment on above: Performed By: #### 5 7021-8 #### MARIANA ELMORE ([id number]) [facility] ([facility]) [address] [place] [address] 00202 Hemoglobin (Bld) [Mass/Vol] 14.7 g/dL Normal 13.5-17.5 [facility] Comment on above: Performed By: #### 5 7021-8 #### MARIANA ELMORE ([id number]) [facility] ([facility]) [address] [place] [address] 53541 Immature granulocytes (Bld) [#/Vol] 0.01 x10*3/uL Normal 0.00-0.70 [facility] Comment on above: Performed By: #### 5 7021-8 #### MARIANA ELMORE ([id number]) [facility] ([facility]) [address] [place] [address] 79429 Immature granulocytes/100 WBC (Bld) 0.2 % Normal 0.0-0.9 [facility] Comment on above: Result Comment: Sarah ture Granulocyte Count (IG) includes promyelocytes, myelocytes and metamyelocytes but does not include bands. Percent differential counts (%) should be interpreted in the context of the absolute cell counts (cells/UL). Performed By: #### 5 7021-8 #### MARIANA ELMORE ([id number]) [facility] ([facility]) [address] [place] [address] 78039 Lymphocytes (Bld) [#/Vol] 1.85 x10*3/uL Normal 1.20-4.80 [facility] Comment on above: Performed By: #### 5 7021-8 #### MARIANA ELMORE ([id number]) [facility] ([facility]) [address] [place] [address] 07668 Lymphocytes/100 WBC (Bld) 42.4 % Normal 13.0-44.0 [facility] Comment on above: Performed By: #### 5 7021-8 #### MARIANA ELMORE ([id number]) [facility] ([facility]) [address] [place] [address] 13240 MCH (RBC) [Entitic mass] 31.1 pg Normal 26.0-34.0 [facility] Comment on above: Performed By: #### 5 7021-8 #### MARIANA ELMORE ([id number]) [facility] ([facility]) [address] [place] [address] 07248 MCHC (RBC) [Mass/Vol] 34.0 g/dL Normal 32.0-36.0 [facility] Comment on above: Performed By: #### 5 7021-8 #### MARIANA ELMORE ([id number]) [facility] ([facility]) [address] [place] [address] 91349 MCV (RBC) [Entitic vol] 91 fL Normal 80-100 [facility] Comment on above: Performed By: #### 5 7021-8 #### MARIANA ELMORE ([id number]) [facility] ([facility]) [address] [place] [address] 77553 Monocytes (Bld) [#/Vol] 0.37 x10*3/uL Normal 0.10-1.00 [facility] Comment on above: Performed By: #### 5 7021-8 #### MARIANA ELMORE ([id number]) [facility] ([facility]) [address] [place] [address] 61652 Monocytes/100 WBC (Bld) 8.5 % Normal 2.0-10.0 [facility] Comment on above: Performed By: #### 5 7021-8 #### MARIANA ELMORE ([id number]) [facility] ([facility]) [address] [place] [address] 83819 Neutrophils (Bld) [#/Vol] 1.99 x10*3/uL Normal 1.20-7.70 [facility] Comment on above: Result Comment: Perc ent differential counts (%) should be interpreted in the context of the absolute cell counts (cells/uL). Performed By: #### 5 7021-8 #### MARIANA ELMORE ([id number]) [facility] ([facility]) [address] [place] [address] 18200 Neutrophils/100 WBC (Bld) 45.7 % Normal 40.0-80.0 [facility] Comment on above: Performed By: #### 5 7021-8 #### MARIANA ELMORE ([id number]) [facility] ([facility]) [address] [place] [address] 03298 Nucleated RBC/100 WBC (Bld) [Ratio] 0.0 /100 WBCs Normal 0.0-0.0 [facility] Comment on above: Performed By: #### 5 7021-8 #### MARIANA ELMORE ([id number]) [facility] ([facility]) [address] [place] [address] 44798 Platelets (Bld) [#/Vol] 228 x10*3/uL Normal 150-450 [facility] Comment on above: Performed By: #### 5 7021-8 #### MARIANA ELMORE ([id number]) [facility] ([facility]) [address] [place] [address] RBC (Bld) [#/Vol] 4.73 x10*6/uL Normal 4.50-5.90 [facility] Comment on above: Performed By: #### 5 7021-8 #### MARIANA ELMORE ([id number]) [facility] ([facility]) [address] [place] [address] WBC (Bld) [#/Vol] 4.4 x10*3/uL Normal 4.4-11.3 [facility] Comment on above: Performed By: #### 5 7021-8 #### MARIANA ELMORE ([id number]) [facility] ([facility]) [address] [place] [address] CT CERVICAL SPINE WO IV CONT [facility] 09-02-2024 CT CERVICAL SPINE WO IV CONTRAST Interpreted By: Mic Moffett, STUDY: CT CERVICAL SPINE WO IV CONTRAST; 09/02/2024 8:05 am INDICATION: Signs/Symptoms:neck trauma. COMPARISON: None. ACCESSION NUMBER(S): [id number] ORDERING CLINICIAN: RENO NAIR TECHNIQUE: Unenhanced axial images were obtained through [...] Mic Moffett 09/02/2024 8:22 AM Dictation workstation: [id number] [facility] CT Cervical spine WO contras ton 09-02-2024 No evidence of an acute fracture or subluxation. MACRO: None. Signed by: Mic Moffett 09/02/2024 8:22 AM Dictation workstation: [id number] [facility] Interpreted By: Mic Moffett, STUDY: CT CERVICAL SPINE WO IV CONTRAST; 09/02/2024 8:05 am INDICATION: Signs/Symptoms:neck trauma. COMPARISON: None. ACCESSION NUMBER(S): [id number] ORDERING CLINICIAN: RENO NAIR TECHNIQUE: Unenhanced axial images were obtained through the cervical spine. The axial data was utilized to reconstruct images in sagittal and coronal planes. FINDINGS: No acute fracture is identified. No subluxation is seen. Facet joints demonstrate a normal alignment. Prevertebral soft tissues are within normal limits. No lytic or blastic lesion is noted. [facility] Mic Moffett MD - 09/02/2024 Interpreted By: Mic Moffett, STUDY: CT CERVICAL SPINE WO IV CONTRAST; 09/02/2024 8:05 am INDICATION: Signs/Symptoms:neck trauma. COMPARISON: None. ACCESSION NUMBER(S): [id number] ORDERING CLINICIAN: RENO NAIR TECHNIQUE: Unenhanced axial images were obtained through [...] Mic Moffett 09/02/2024 8:22 AM Dictation workstation: [id number] [facility] Work Phone: [facility] Work Phone: CT HEAD WO IV CONTRASTon CT HEAD WO IV CONTRAST Interpreted By: Mic Moffett, STUDY: CT HEAD WO IV CONTRAST; 09/02/2024 8:05 am INDICATION: Signs/Symptoms:head trauma. COMPARISON: None. ACCESSION NUMBER(S): [id number] ORDERING CLINICIAN: RENO NAIR TECHNIQUE: Unenhanced images were obtained through the [...] Mic Moffett 09/02/2024 8:21 AM Dictation workstation: [id number] [facility] CT Head WO contraston 2024 No evidence of an acute intracranial process. MACRO: None. Signed by: Mic Moffett 09/02/2024 8:21 AM Dictation workstation: [id number] [facility] Interpreted By: Mic Moffett, STUDY: CT HEAD WO IV CONTRAST; 09/02/2024 8:05 am INDICATION: Signs/Symptoms:head trauma. COMPARISON: None. ACCESSION NUMBER(S): [id number] ORDERING CLINICIAN: RENO NAIR TECHNIQUE: Unenhanced images were obtained through the brain. FINDINGS: The ventricles appear normal in size and position. There is no mass effect or midline shift. No acute intracranial hemorrhage is identified. No extra-axial fluid collections are seen. No intraparenchymal mass lesions are identified. Bone windows demonstrate no evidence of an acute calvarial fracture. [facility] Mic Moffett MD - 09/02/2024 Interpreted By: Mic Moffett, STUDY: CT HEAD WO IV CONTRAST; 09/02/2024 8:05 am INDICATION: Signs/Symptoms:head trauma. COMPARISON: None. ACCESSION NUMBER(S): [id number] ORDERING CLINICIAN: RENO NAIR TECHNIQUE: Unenhanced images were obtained through the [...] Mic Moffett 09/02/2024 8:21 AM Dictation workstation: [id number] [facility] Work Phone: [facility] Work Phone: Comprehensive metabolic 2000 panelon 09-02-2024 Albumin BCP dye [Mass/Vol] 4.7 g/dL 3.4 - 5.0 g/dL [facility] ALP [Catalytic activity/Vol] 55 U/L 33 - 120 U/L [facility] ALT With P-5'-P [Catalytic activity/Vol] 10 U/L 10 - 52 U/L [facility] Comment on above: Patients treated wit h Sulfasalazine may generate falsely decreased results for ALT. Anion gap [Moles/Vol] 9 mmol/L Low 10 - 20 mmol/L [facility] AST With P-5'-P [Catalytic activity/Vol] 13 U/L 9 - 39 U/L [facility] Bilirubin [Mass/Vol] 0.5 mg/dL 0.0 - 1 .2 mg/dL [facility] Calcium [Mass/Vol] 9.2 mg/dL 8.6 - 10. 3 mg/dL [facility] Chloride [Moles/Vol] 105 mmol/L 98 - 10 7 mmol/L [facility] CO2 [Moles/Vol] 28 mmol/L 21 - 32 mmol/L [facility] Creatinine [Mass/Vol] 1.04 mg/dL 0.50 - 1.30 mg/dL [facility] eGFR - PINF [facility] Comment on above: Calculations of ruddy mated GFR are performed using the 2020 CKD-EPI Study Refit equation without the race variable for the IDMS-Traceable creatinine methods. https://jasn.asnjournals.org/content/early/ASN.0452559 988 Glucose [Mass/Vol] 94 mg/dL 74 - 99 mg/dL [facility] Interpretation and review of laboratory results Abnormal [facility] Potassium [Moles/Vol] 4 mmol/L 3.5 - 5.3 mmol/L [facility] Protein [Mass/Vol] 6.9 g/dL 6.4 - 8.2 g/dL [facility] Sodium [Moles/Vol] 138 mmol/L 136 - 145 mmol/L [facility] Urea nitrogen [Mass/Vol] 11 mg/dL 6 - 23 mg/dL [facility] Albumin BCP dye [Mass/Vol] 4.7 g/dL Normal 3.4-5.0 [facility] Comment on above: Performed By: #### 2 4323-8 #### MARIANA ELMORE ([id number]) [facility] ([facility]) [address] [place] [address] 72638 ALP [Catalytic activity/Vol] 55 U/L Normal 33-120 [facility] Comment on above: Performed By: #### 2 4323-8 #### MARIANA ELMORE ([id number]) [facility] ([facility]) [address] [place] [address] 90349 ALT With P-5'-P [Catalytic activity/Vol] 10 U/L Normal 10-52 [facility] Comment on above: Result Comment: Marleni ents treated with Sulfasalazine may generate falsely decreased results for ALT. Performed By: #### 2 4323-8 #### MARIANA ELMORE ([id number]) [facility] ([facility]) [address] [place] [address] 05113 Anion gap [Moles/Vol] 9 mmol/L Low 10-20 [facility] Comment on above: Performed By: #### 2 4323-8 #### MRAIANA ELMORE ([id number]) [facility] ([facility]) [address] [place] [address] 14901 AST With P-5'-P [Catalytic activity/Vol] 13 U/L Normal 9-39 [facility] Comment on above: Performed By: #### 2 4323-8 #### MARIANA ELMORE ([id number]) [facility] ([facility]) [address] [place] [address] 09065 Bilirubin [Mass/Vol] 0.5 mg/dL Normal 0.0-1.2 [facility] Comment on above: Performed By: #### 2 4323-8 #### MARIANA ELMORE ([id number]) [facility] ([facility]) [facility] [place] [place] [address] Calcium [Mass/Vol] 9.2 mg/dL Normal 8.6-10.3 [facility] Comment on above: Performed By: #### 2 4323-8 #### MARIANA ELMORE ([id number]) [facility] ([facility]) [address] [place] [address] Chloride [Moles/Vol] 105 mmol/L Normal 98-107 [facility] Comment on above: Performed By: #### 2 4323-8 #### MARIANA ELMORE ([id number]) [facility] ([facility]) [address] [place] [address]35 CO2 [Moles/Vol] 28 mmol/L Normal 21-32 [facility] Comment on above: Performed By: #### 2 4323-8 #### MARIANA ELMORE ([id number]) [facility] ([facility]) [address] [place] [address]102 Creatinine [Mass/Vol] 1.04 mg/dL Normal 0.50-1.30 [facility] Comment on above: Performed By: #### 2 4323-8 #### MARIANA ELMORE ([id number]) [facility] ([facility]) [address] [place] [address] 60280 GFR/1.73 sq M.predicted MDRD (S/P/Bld) [Vol rate/Area] mL/min/{1.73_m2} Normal >60 [facility] Comment on above: Result Comment: Calc ulations of estimated GFR are performed using the 2020 CKD-EPI Study Refit equation without the race variable for the IDMS-Traceable creatinine methods. https://jasn.asnjournals.org/content//ASN.5807533 988 Performed By: #### 2 4323-8 #### MARIANA ELMORE ([id number]) [facility] ([facility]) [address] [place] [address] Glucose [Mass/Vol] 94 mg/dL Normal 74-99 [facility] Comment on above: Performed By: #### 2 4323-8 #### MARIANA ELMORE ([id number]) [facility] ([facility]) [address] [place] [address]29 Potassium [Moles/Vol] 4.0 mmol/L Normal 3.5-5.3 [facility] Comment on above: Performed By: #### 2 4323-8 #### MARIANA ELMORE ([id number]) [facility] ([facility]) [address] [place] [address] 17028 Protein [Mass/Vol] 6.9 g/dL Normal 6.4-8.2 [facility] Comment on above: Performed By: #### 2 4323-8 #### MARIANA ELMORE ([id number]) [facility] ([facility]) [address] [place] [address] 28791 Sodium [Moles/Vol] 138 mmol/L Normal 136-145 [facility] Comment on above: Performed By: #### 2 4323-8 #### MARIANA ELMORE ([id number]) [facility] ([facility]) [address] [place] [address] 56761 Urea nitrogen [Mass/Vol] 11 mg/dL Normal 6-23 [facility] Comment on above: Performed By: #### 2 4323-8 #### MARIANA ELMORE ([id number]) [facility] ([facility]) [address] [place] [address] 01612 ECG 12-LEADon 09-02-2024 ECG 12-LEAD Ventricular Rate 69 Atrial Rate 69 P-R Interval 140 QRS Duration 92 Q-T Interval 364 QTC Calculation(Bazett) 390 P [place] 38 R [place] 76 T [place] 50 QRS Count 11 Q Onset 220 P Onset 150 P Offset 190 T Offset 402 QTC Fredericia 381 Diagnosis Normal sinus rhythm Normal ECG No previous ECGs available See ED provider note for full interpretation and clinical correlation Confirmed by Marisa Sexton ([id number]) on 09/06/2024 11:43:37 AM Normal [facility] Magnesiumon 09-02-2024 Magnesium [Mass/Vol] 1.98 mg/dL 1.60 - 2.40 mg/dL [facility] Magnesium [Mass/Vol] 1.98 mg/dL Normal 1.60-2.40 [facility] Comment on above: Performed By: #### 1 9123-9 #### PEÑA CATARINA ([id number]) [facility] ([facility]) [address] [place] [address] Magnesium [Mass/Vol]on 09-02 Interpretation and review of laboratory results Normal [facility] No Panel Informationon 09-02 [facility] Radiology Study observation (narrative) [facility] Work Phone: Tropinin I.cardiac panel Hig h sensitivity methodon 09-02-2024 Interpretation and review of laboratory results Normal [facility] Less than 99th percentile of normal range [...] performed using a different testing methodology at [facility] other [facility]. Direct result comparisons should only be made within the same method. [facility] Interpretation and review of laboratory results Normal [facility] Less than 99th percentile of normal range [...] performed using a different testing methodology at [facility] than at other [facility]. Direct result comparisons should only be made within the same method. [facility] Troponin I, High Sensitivity , Initialon 09-02-2024 Tropinin I.cardiac panel High sensitivity method 3 ng/L 0 - 20 ng/L [facility] Troponin I.cardiac panelon 0 09-02-2024 Tropinin I.cardiac panel High sensitivity method 3 ng/L Normal 0-20 [facility] Comment on above: Order Comment: Less than 99th percentile of normal range [...] performed using a different testing methodology at [facility] than at other [facility]. Direct result comparisons should only be made within the same method. Performed By: #### 8 9577-1 #### PEÑA CATARINA ([id number]) [facility] ([facility]) [address] [place] [address] Tropinin I.cardiac panel High sensitivity method 3 ng/L Normal 0-20 [facility] Comment on above: Order Comment: Less than 99th percentile of normal range [...] performed using a different testing methodology at [facility] than at other [facility]. Direct result comparisons should only be made within the same method. Performed By: #### 8 9577-1 #### PEÑA CATARINA ([id number]) [facility] ([facility]) [address] [place] [address] Troponin, High Sensitivity, 1 Houron 09-02-2024 Tropinin I.cardiac panel High sensitivity method 3 ng/L 0 - 20 ng/L [facility] XR CHEST 1 VIEWon 09-02-2024 XR CHEST 1 VIEW Interpreted By: Mic Moffett, STUDY: XR CHEST 1 VIEW; 09/02/2024 7:39 am INDICATION: Signs/Symptoms:Chest Pain. COMPARISON: None. ACCESSION NUMBER(S): [id number] ORDERING CLINICIAN: RENO NAIR FINDINGS: CHEST/LUNGS: The cardiac and mediastinal silhouettes are within normal limits for the technique. No focal areas of consolidation are noted. No effusion or pneumothorax is seen. UPPER ABDOMEN: No remarkable upper abdominal findings. OSSEOUS STRUCTURES: No acute changes. IMPRESSION: No radiographic evidence of an acute cardiopulmonary process. MACRO: None. Signed by: Mic Moffett 09/02/2024 8:19 AM Dictation workstation: [id number] [facility] XR Chest Single viewon 09-02 No radiographic evidence of an acute cardiopulmonary process. MACRO: None. Signed by: Mic Moffett 09/02/2024 8:19 AM Dictation workstation: [id number] MMODAL Interpreted By: Mic Moffett, STUDY: XR CHEST 1 VIEW; 09/02/2024 7:39 am INDICATION: Signs/Symptoms:Chest Pain. COMPARISON: None. ACCESSION NUMBER(S): [id number] ORDERING CLINICIAN: RENO NAIR FINDINGS: CHEST/LUNGS: The cardiac and mediastinal silhouettes are within normal limits for the technique. No focal areas of consolidation are noted. No effusion or pneumothorax is seen. UPPER ABDOMEN: No remarkable upper abdominal findings. OSSEOUS STRUCTURES: No acute changes. [facility] MMODAL Mic Moffett MD - 09/02/2024 Interpreted By: Mic Moffett, STUDY: XR CHEST 1 VIEW; 09/02/2024 7:39 am INDICATION: Signs/Symptoms:Chest Pain. COMPARISON: None. ACCESSION NUMBER(S): [id number] ORDERING CLINICIAN: RENO NAIR FINDINGS: CHEST/LUNGS: The cardiac and mediastinal silhouettes are within normal limits for the technique. No focal areas of consolidation are noted. No effusion or pneumothorax is seen. UPPER ABDOMEN: No remarkable upper abdominal findings. OSSEOUS STRUCTURES: No acute changes. IMPRESSION: No radiographic evidence of an acute cardiopulmonary process. MACRO: None. Signed by: Mic Moffett 09/02/2024 8:19 AM Dictation workstation: [id number] [facility] Work Phone: Radiology Study observation (narrative) [facility] Work Phone: XR Chest Single viewOrdered By: Mic Moffett on 09-02-2024 [facility] Work Phone: ED Provider Noteon ED Provider Note EMERGENCY DEPARTMENT ENCOUNTER Pt Name: Jean Garcia Birthdate 2005 Date of evaluation: 08/31/2024 CHIEF COMPLAINT Chief Complaint Patient presents with Neck Pain No injury HISTORY OF PRESENT ILLNESS HPI Jean Garcia is a 19 y.o. male who presents to the emergency department with neck pain, he woke up with symptoms 2 days ago. He has decreased range of motion of the neck. No fever no numbness no weakness of the extremities, no bowel incontinence or bladder incontinence. No injury. He has tried Biofreeze. Zxpj-sbx-cippvva medication. He would like a work note. [...] Insecurity: No Food Insecurity (07/20/2023) Received from [facility] Hunger Screening Within the past 12 months [...] Sitting Pulse: 70 Resp: 16 Temp: 36.8 ?C (98.3 ?F) SpO2: 100% Physical Exam Vitals and nursing [...] diagnostics esr, clinically not septic hence not ordered unlikely, epidural abscess.. Prescription medications considered but not [...] spelling, as well as words and phrases) Thad Castillo MD (electronically signed) Thad Castillo MD 09/01/24 0032 [facility] XR hand RT min 3V*on 025 XR hand RT min 3V* [facility] Main Effort [address] [place] [address] XRay Report Signed Patient: Jean Garcia MR#: [id number] : 2005 Acct:[id number] Age/Sex: 19 / M ADM Date: 08/13/24 Loc: ER Room: Type: [facility] ER Attending Dr: Copies to: RUTH Schaeffer Do Ordering Provider: Felecia Dhillon Do Date of Service: 08/13/24 XR/XR hand RT min 3V*: Extremity Injury, Upper RIGHT HAND - 3 views REASON FOR EXAM: Injury to right hand yesterday now with pain and swelling fifth metacarpal COMPARISON: None FINDINGS: Soft tissue swelling is noted. No acute bony process is seen. Joint spaces appear maintained. No bony erosions. XR/XR hand RT min 3V* IMPRESSION: SOFT TISSUE SWELLING WITHOUT ACUTE BONY PROCESS. Impression dictated by: Ben Downs Jr., DLillieOLillie 08/13/2024 9:55 AM Dictation Location: [place] [address] Transcribed By: HI 08/13/2455 Dictated By: Ben Downs Jr, DO 08/13/2454 Signed By: 08/13/2455 Normal [facility] ED Provider Noteon ED Provider Note EMERGENCY DEPARTMENT ENCOUNTER Pt Name: Jean Garcia Birthdate 2005 Date of evaluation: 11/26/2023 CHIEF COMPLAINT Chief Complaint Patient presents with Headache Pt reports headache since last Sunday. Came to ED on and received a ct scan/headache cocktail and left ED with no relief of headache. Pt reports he took motrin last night for [place] without relief but has not kept up on pain medications. Pt denies HX of migraines, took covid test at home that was negative. HISTORY OF PRESENT ILLNESS HPI Jean Garcia is a 18 y.o. male who presents to the emergency department with headache. Was seen before had a CAT scan done. Home COVID test was negative. He has been trying ibuprofen without significant relief. Normal vision no double vision no focal weakness no numbness no loss of consciousness. Headache started approximately 7 days ago. Pain in the neck. Some photophobia. Denies nausea, denies vomiting to me. No fever. Headache started gradually. REVIEW OF SYSTEMS Review of Systems There is no problem list on file for this patient. CURRENT MEDICATIONS Previous Medications CYCLOBENZAPRINE (FLEXERIL) 10 MG TABLET Take 1 tablet (10 mg) by mouth 3 times daily as needed for muscle spasms for up to 4 days. IBUPROFEN 800 MG TABLET Take 1 tablet (800 mg) by mouth every 8 hours as needed for mild pain (1-3) for up to 7 days. ALLERGIES Patient has no known allergies. SOCIAL HISTORY Social History Tobacco Use Smoking status: Never Smokeless tobacco: Never Social Determinants of Health Tobacco Use: Low Risk (11/26/2023) Patient History Smoking Tobacco Use: Never Smokeless Tobacco Use: Never Passive Exposure: Not on file Alcohol Use: Not At Risk (11/26/2023) AUDIT-C Frequency of Alcohol Consumption: Never Average Number of Drinks: Patient does not drink Frequency of Binge Drinking: Never Financial Resource Strain: Not on file Food Insecurity: No Food Insecurity (07/20/2023) Received from [facility] Hunger Screening Within the past 12 months [...] file Intimate Partner Violence: Not on file Depression: Not on file Housing Stability: Not on file Utilities: Not on file Health Literacy: Not on file PHYSICAL EXAM Vitals: 11/26/23 1833 11/26/23 1841 BP: 132/64 Pulse: 82 Resp: 16 Temp: 36.7 ?C (98 ?F) TempSrc: Oral SpO2: 100% 100% Weight: 56.7 kg (125 lb) Height: 1.702 m (5' 7 ) Physical Exam Vitals and nursing note reviewed. Constitutional: Appearance: He is underweight. HENT: Head: Atraumatic. Eyes: Extraocular Movements: Extraocular movements intact. Conjunctiva/sclera: Conjunctivae normal. Pupils: Pupils are equal, round, and reactive to light. Funduscopic exam: Right eye: No papilledema. Left eye: No papilledema. Neck: Vascular: No carotid bruit. Pulmonary: Effort: Pulmonary effort is normal. Breath sounds: Normal breath sounds. Musculoskeletal: Cervical back: Normal range of motion. Right lower leg: No swelling or tenderness. Left lower leg: No swelling or tenderness. Skin: General: Skin is warm and dry. Capillary Refill: Capillary refill takes less than 2 seconds. Coloration: Skin is not jaundiced. Neurological: Mental Status: He is alert and oriented to person, place, and time. Cranial Nerves: Cranial nerves 2-12 are intact. Sensory: Sensation is intact. Motor: Motor function is intact. Coordination: Coordination is intact. Gait: Gait is intact. Comments: Nih ss=0 Psychiatric: Mood and Affect: Mood normal. Behavior: Behavior normal. Thought Content: Thought content normal. SCREENINGS Maryse Coma Scale Best Eye Response: Spontaneous Best Verbal Response: Oriented Best Motor Response: Follows commands Maryse Coma Scale Score: 15 Medical decision making DIAGNOSTIC RESULTS Procedures/EKG: Physician EKG interpretation can be found in [facility] if done RADIOLOGY : Radiologist results reviewed: No orders to display LABS: Labs Reviewed - No data to display Medications ordered: Medications morphine injection 4 mg ED Course as of 11/26/231854 Mon Nov 26, [address] head wo IV contrast (11/22/23 1525) Prior medical records were reviewed: ct head nad [NM] ED Course User Index [NM] Thad Castillo MD Diagnoses as of 11/26/231854 Headache disorder * No order type specified * Our workup consisted of ordering/reviewing: Orders Placed This Encounter Procedures [facility] MEDICAL DECISION MAKING: I considered, but did not perform, additional testing such as C (more content not included)... Normal [facility] CT HEAD WO IV CONTRASTon CT HEAD WO IV CONTRAST Patient Name: JEAN GARCIA : 2005 [id number] Exam Date/Time: 11/22/2023 15:18 Procedure: CT HEAD WO IV CONTRAST Ordering Provider: DAIGLE GREGORY Reason For Exam: HEADACHE EXAMINATION: CT HEAD WO IV CONTRAST HISTORY: HEADACHE TECHNIQUE: CT head without contrast. Dose reduction was employed with automated exposure control. COMPARISON: None available RESULT: Acute change: No evidence of an acute intracranial process. Hemorrhage: No evidence of acute intracranial hemorrhage. Mass Lesion / Mass Effect: No evidence of an intracranial mass, extra-axial fluid collection, or significant localized mass effect. Chronic change: None apparent. Parenchyma: There is no significant volume loss. The brain parenchyma is otherwise within normal limits for age. Ventricles: Normal caliber and morphology. Other: The calvarium, skull base, imaged paranasal sinuses, mastoids, orbits and extracranial soft tissues are unremarkable. IMPRESSION: No CT evidence of an acute intracranial abnormality. Report Dictated on Electronically Signed By: Mando Celestin MD Electronically Signed Date/Time: 11/22/2023 3:25 PM EDT Headache x3 days, no known injury. Normal [facility] CT Head WO contraston [address] evidence of an acute intracranial abnormality. Report Dictated on Electronically Signed By: Mando Celestin MD Electronically Signed Date/Time: 11/22/2023 3:25 PM EDT [facility] Patient Name: JEAN GARCIA : 2005 [id number] Exam Date/Time: 11/22/2023 15:18 Procedure: CT HEAD WO IV CONTRAST Ordering Provider: DAIGLE GREGORY Reason For Exam: HEADACHE EXAMINATION: CT HEAD WO IV CONTRAST HISTORY: HEADACHE TECHNIQUE: CT head without contrast. Dose reduction was employed with automated exposure control. COMPARISON: None available RESULT: Acute change: No evidence of an acute intracranial process. Hemorrhage: No evidence of acute intracranial hemorrhage. Mass Lesion / Mass Effect: No evidence of an intracranial mass, extra-axial fluid collection, or significant localized mass effect. Chronic change: None apparent. Parenchyma: There is no significant volume loss. The brain parenchyma is otherwise within normal limits for age. Ventricles: Normal caliber and morphology. Other: The calvarium, skull base, imaged paranasal sinuses, mastoids, orbits and extracranial soft tissues are unremarkable. [facility] Mando Celestin MD - 11/22/2023 Patient Name: JEAN GARCIA : 2005 Exam Date/Time: 11/22/2023 15:18 Procedure: CT HEAD WO IV CONTRAST Ordering Provider: DAIGLE GREGORY Reason For Exam: HEADACHE EXAMINATION: CT HEAD WO IV CONTRAST HISTORY: HEADACHE TECHNIQUE: CT head without contrast. Dose reduction was employed with automated exposure control. COMPARISON: None available RESULT: Acute change: No evidence of an acute intracranial process. Hemorrhage: No evidence of acute intracranial hemorrhage. Mass Lesion / Mass Effect: No evidence of an intracranial mass, extra-axial fluid collection, or significant localized mass effect. Chronic change: None apparent. Parenchyma: There is no significant volume loss. The brain parenchyma is otherwise within normal limits for age. Ventricles: Normal caliber and morphology. Other: The calvarium, skull base, imaged paranasal sinuses, mastoids, orbits and extracranial soft tissues are unremarkable. IMPRESSION: No CT evidence of an acute intracranial abnormality. Report Dictated on Electronically Signed By: Mando Celestin MD Electronically Signed Date/Time: 11/22/2023 3:25 PM EDT [facility] Radiology Study observation (narrative) [facility] CT Head WO contrastOrdered B y: Mando Celestin on 11-22-2023 [employer] Work Phone: ED Provider Noteon ED Provider Note [facility] ED EMERGENCY DEPARTMENT ENCOUNTER Pt Name: Jean Garcia Birthdate 2005 Date of evaluation: 11/22/2023 Provider: Palomo Daigle MD CHIEF COMPLAINT Chief Complaint Patient presents with Headache X3 days HISTORY OF PRESENT ILLNESS (Location/Symptom, Timing/Onset,Context /Setting, Quality, Duration, Modifying Factors, Severity) Note limiting factors. Jean Garcia is a 18 y.o. male who presents to the emergency department for 3 days. Started 3 days ago. He thought he slept wrong his neck was sore but then is gradual got worse headache now he has diffuse headache photophobia. Some nausea. No history of headaches no trauma. No fevers chills cough cold congestion. No blurry double vision. Acting appropriate otherwise brought in to be seen. He says he is not getting better with iuvn-znc-bxdsdax medication. HPI Historian is the patient Nurse's notes for past medical history, surgical history, social history were reviewed. Medications and allergies reviewed. PAST MEDICAL HISTORY History reviewed. No pertinent past medical history. SURGICALHISTORY History reviewed. No pertinent surgical history. CURRENT MEDICATIONS Previous Medications No medications on file Patient has no known allergies. FAMILY HISTORY No family history on file. SOCIAL HISTORY Social History Socioeconomic History Marital status: Single Tobacco Use Smoking status: Never Smokeless tobacco: Never Social Determinants of Health Food Insecurity: No Food Insecurity (07/20/2023) Received from [facility] Scre[facility] Within the past 12 months we worried whether our food would run out before we got money to buy more.: Never True Within the past 12 months the food we bought just didn't last and we didn't have money to get more.: Never True SCREENINGS PHYSICAL EXAM (up to 7 for level 4, 8 or more for level 5) @EDTRIAGEVSS@ Appropriate PPE including n 95, gown, gloves, goggles where worn when appropriate with this patient. Physical Exam Vital signs reviewed general: Alert and oriented ?3 head: Atraumatic eyes: Equal round reactive to light and accommodating, pupils are equal, round and reactive to light and accommodation oropharynx: Clear and well hydrated neck: Supple heart: Regular rate and rhythm, no murmurs lungs: Clear to auscultation bilaterally Extremities: Moving all fours, no tenderness. Normal capillary refill. Skin: No rash or lesions -to the exposed skin neurologically: Alert and oriented ?3, cranial nerves grossly intact, strength, sensation, reflexes intact. Cerebellar function intact. Gait is steady. NIH equals 0 DIAGNOSTIC RESULTS RADIOLOGY: Interpretation per the Radiologist below, if availableat the time of this note: CT head wo IV contrast Final Result No CT evidence of an acute intracranial abnormality. Report Dictated on Electronically Signed By: Mando Celestin MD Electronically Signed Date/Time: 11/22/2023 3:25 PM EDT ED BEDSIDE ULTRASOUND: Performed by ED Physician - none LABS: Labs Reviewed - No data to display All other labs were within normal range or not returned as of thisdictation. EMERGENCYDEPARTMENT COURSE and DIFFERENTIAL DIAGNOSIS/MDM: Vitals: Vitals: 11/22/23 1429 BP: 136/72 BP Location: Right arm Patient Position: Sitting Pulse: 85 Resp: 18 Temp: 37.1 ?C (98.7 ?F) TempSrc: Oral SpO2: 99% Weight: 56.7 kg (125 lb) Height: 1.702 m (5' 7 ) Medical Decision Making Problems Addressed: Acute nonintractable headache, unspecified headache type: complicated acute illness or injury Tension headache: complicated acute illness or injury Amount and/or Complexity of Data Reviewed Radiology: ordered. Risk Prescription drug management. EMERGENCY DEPARTMENT COURSE and DIFFERENTIAL DIAGNOSIS/MDM: Vitals: Vitals: 11/22/23 1429 BP: 136/72 BP Location: Right arm Patient Position: Sitting Pulse: 85 Resp: 18 Temp: 37.1 ?C (98.7 ?F) TempSrc: Oral SpO2: 99% Weight: 56.7 kg (125 lb) Height: 1.702 m (5' 7 ) The patient presented with a chief complaint of headache. The differential diagnosis associated with this patient's presentation includes tumor mass headache tension headache migraine. Our workup consisted of ordering/reviewing CT of the head. I do not believe subarachnoid hemorrhage or meningitis but he is never had headaches before so I think it is reasonable get a CT of the head to make sure is not a tumor. Likely tension headache if that is negative. Will treat him with 1 L of IV fluids. 10 mg IV Reglan 4 mg IV Zofran and 25 mg IV Benadryl. Medicine did not really help the headache. I think this points more towards that this is a tension headache. Not migraine. I do not believe is meningitis. Not the worst of his life. Do not believe lumbar puncture is needed. Will give him 15 of Toradol IV. Will send him home on a short (more content not included)... Normal [facility] CT ABDOMEN AND PELVIS WO CON Ton [...] Blayne Olivera DO on 06/28/2023 10:33 AM IMark MD have personally reviewed the image(s) and agree with and/or edited the report Finalized by Mark Jarvis MD on 06/28/2023 11:29 AM Normal [facility] US RETROPERITONEAL COMPLETEo n 05-08-2023 US [...] Gay MD on 05/08/2023 12:51 PM Normal [facility] US SCROTUM WITH DUPLEXon US SCROTUM [...] Lubin MD on 05/08/2023 3:37 PM Normal [facility] Microscopic, urineon 024 Epithelial cells Auto (Urine sed) [#/Area] [facility] Interpretation and review of laboratory results Abnormal [facility] Mucus Ql (Urine sed) PRESENT Abnormal NONE^NONE [facility] RBC Auto (Urine sed) [#/Area] [facility] WBC Auto (Urine sed) [#/Area] [facility] UA (MICROSCOPIC)on 4 MUCOUS PRESENT Abnormal NONE [facility] R.B.CELLS <1 Normal 0-5 [facility] SQUAMOUS EPITHELIUM <1 Normal 0-5 [facility] W.B.CELLS <1 Normal 0-5 [facility] GROUP A STREP CULTUREon 12-29 S. pyogenes Ag Ql (Unsp spec) Culture Observations: NEGATIVE FOR GROUP A STREPTOCOCCUS. Normal [facility] Comment on above: Performed By: #### G RASTCX #### [facility] [address] [place] [address] Dr. Aston El INFLUENZA A AND B AGon 01-25 INFLUENZA A AG Negative Normal NEGATIVE SEE COMMENT [facility] Comment on above: Performed By: #### I NFLUAB #### [facility] [address] [place] [address] Dr. Aston El INFLUENZA B AG Negative Normal NEGATIVE SEE COMMENT [facility] Comment on above: Performed By: #### I NFLUAB #### [facility] [address] [place] [address] Dr. Aston MONTGOMERYPOS SEE BELOW Normal [facility] Comment on above: Result Comment: NOTE : Live attenuated influenzae vaccine viruses can cause a positive result for a rapid influenza diagnostic test if administered up to 7 days prior to rapid testing. Performed By: #### I NFLUAB #### [facility] [address] [place] [address] Dr. Aston MONTGOMERYPOS SEE BELOW Normal [facility] Comment on above: Result Comment: NOTE : Live attenuated influenzae vaccine viruses can cause a positive result for a rapid influenza diagnostic test if administered up to 7 days prior to rapid testing. Performed By: #### I NFLUAB #### [facility] [address] [place] [address] Dr. Aston El INTERNAL CONTROLS Within Normal Limits Normal Wi thin Normal Limits [facility] Comment on above: Performed By: #### I NFLUAB #### [facility] [address] [address] [address] Aston El STREPT SCREENon 01-25-2022 STREP SCREEN A Negative Normal NEGATIVE [facility] Comment on above: Performed By: #### S SCRN #### [facility] [address] [address] [address] Aston El ECHOCARDIO M/2D COMPLETEon 1 ECHOCARDIO M/2D COMPLETE Patient: JEAN GARCIA Exam Date: 12/20/2021 : 2005 Gender:M Ordering : DR LUCAS COCHRAN . Admission #: [id number] Family : Order #: [id number] CLICK HERE TO VIEW EXAM ECHOCARDIOGRAM REPORT [...] Piedra M.D. on 12/28/2021 at 10:56 Normal [facility] NM STRESS/REST MULTIon 12-20 NM STRESS/REST MULTI Patient: JEAN GARCIA Exam Date: 12/20/2021 : 2005 Gender:M Ordering : DR LUCAS COCHRAN . Admission #: [id number] Family : Order #: [id number] CLICK HERE TO VIEW EXAM RADIOLOGY REPORT [...] Mabry MD on 12/21/2021 at 08:02 Normal [facility] XR ankle LT min 3V*on 2021 XR ankle LT min 3V* [facility] [employer] Other XR ankle LT min 3V* [facility] [employer] Other XR ankle LT min 3V* [facility] [employer] Other XR ankle LT min 3V* CAYETANO Flores [address] [employer] Other XR ankle LT min 3V* XRay Report [facility] [employer] Other XR ankle LT min 3V* Signed [employer] Other XR ankle LT min 3V* Patient: Jean Garcia MR#: [id number] [employer] Other XR ankle LT min 3V* 726 [employer] Other XR ankle LT min 3V* : 2005 Acct:[id number] [employer] Other XR ankle LT min 3V* Age/Sex: 16 / M ADM Date: 07/24/21 [employer] Other XR ankle LT min 3V* Loc: XDUCLY Room: Type: [facility] [employer] Other XR ankle LT min 3V* Attending Dr: Hubert Luna NP-C [employer] Other XR ankle LT min 3V* Ordering Provider: Hubert Luna MONITORING ANALYST-C [employer] Other XR ankle LT min 3V* Date of Service: 07/24/21 [employer] Other XR ankle LT min 3V* XR/XR ankle LT min 3V*: Injury of left ankle, initial encounter [employer] Other XR ankle LT min 3V* Copies to: Hubert Bellaker MONITORING ANALYST-C [employer] Other XR ankle LT min 3V* 3views LEFTankle [employer] Other XR ankle LT min 3V* COMPARISON:None [employer] Other XR ankle LT min 3V* HISTORY: LEFT ankle injury [employer] Other XR ankle LT min 3V* No fracture, dislocation or focal soft tissue abnormality seen. [employer] Other XR ankle LT min 3V* XR/XR ankle LT min 3V* [employer] Other XR ankle LT min 3V* IMPRESSION: No acute findings. [employer] Other XR ankle LT min 3V* Impression dictated by: Richard Cavanaugh M.D.07/24/2021 10:53 AM [employer] Other XR ankle LT min 3V* Dictation Location: [facility]- [employer] Other XR ankle LT min 3V* Transcribed By: [facility] 07/24/21 1053 [employer] Other XR ankle LT min 3V* Dictated By: Richard Cavanaugh DO 07/24/21 1052 [employer] Other XR ankle LT min 3V* Signed By: [employer] Other XR ankle LT min 3V* 07/24/21 1053 No rt [employer] Other CBC AUTO DIFFon 07-07-2021 BASO # 0.1 103/ul Normal 0.0-0.1 [facility] Comment on above: Performed By: #### C BC #### [facility] [address] [address] [address] Aston El Basophils/100 WBC (Bld) 1.3 % Normal 0.2-2.0 [facility] Comment on above: Performed By: #### C BC #### [facility] [address] [place] [address] Dr. Aston El EO # 0.0 103/ul Normal 0.0-0.7 [facility] Comment on above: Performed By: #### C BC #### [facility] [address] [place] [address] Dr. Aston El Eosinophils/100 WBC (Bld) 0.9 % Normal 0.9-7.0 [facility] Comment on above: Performed By: #### C BC #### [facility] [address] [place] [address] Dr. Aston El Erythrocyte distribution width (RBC) [Ratio] 11.8 % Normal 11.0-15.0 [facility] Comment on above: Performed By: #### C BC #### [facility] [address] [place] [address] Dr. Aston El Hematocrit (Bld) [Volume fraction] 46.6 % Normal 42.0-54.0 [facility] Comment on above: Performed By: #### C BC #### [facility] [address] [place] [address] Dr. Aston El Hemoglobin (Bld) [Mass/Vol] 15.6 g/dL Normal 14.0-18.0 [facility] Comment on above: Performed By: #### C BC #### [facility] [address] [place] [address] Dr. Aston El IG # 0.02 10e3/ul Normal 0.00-0.03 [facility] Comment on above: Performed By: #### C BC #### [facility] [address] [place] [address] Dr. Aston El IG % 0.4 % Normal 0.0-0.5 [facility] Comment on above: Performed By: #### C BC #### [facility] [address] [place] [address] Dr. Aston El LYMPH # 1.7 103/ul Normal 1.2-3.8 [facility] Comment on above: Performed By: #### C BC #### [facility] [address] [place] [address] Dr. Aston El Lymphocytes/100 WBC (Bld) 36.1 % Normal 20.5-60.0 [facility] Comment on above: Performed By: #### C BC #### [facility] [address] [place] [address] Dr. Aston El MANUAL DIFF REQ NO Normal [facility] Comment on above: Performed By: #### C BC #### [facility] [address] [place] [address] Dr. Aston El MCH (RBC) [Entitic mass] 32.0 pg Normal 25.9-34.0 [facility] Comment on above: Performed By: #### C BC #### [facility] [address] [place] [address] Dr. Aston El MCHC (RBC) [Mass/Vol] 33.5 g/dL Normal 29.9-35.2 [facility] Comment on above: Performed By: #### C BC #### [facility] [address] [place] [address] Dr. Aston El MCV (RBC) [Entitic vol] 95.5 fL Critically high 80.0-94.0 [facility] Comment on above: Performed By: #### C BC #### [facility] [address] [place] [address] Dr. Aston El MONO # 0.5 103/ul Normal 0.3-0.8 [facility] Comment on above: Performed By: #### C BC #### [facility] [address] [place] [address] Dr. Aston El Monocytes/100 WBC (Bld) 10.4 % Normal 1.7-12.0 [facility] Comment on above: Performed By: #### C BC #### [facility] [address] [place] [address] Dr. Aston El NEUT # 2.3 103/ul Normal 1.4-6.5 [facility] Comment on above: Performed By: #### C BC #### [facility] [address] [place] [address] Dr. Aston El Neutrophils/100 WBC (Bld) 50.9 % Normal 43.0-75.0 [facility] Comment on above: Performed By: #### C BC #### [facility] [address] [place] [address] Dr. Aston El Platelet mean volume (Bld) [Entitic vol] 8.6 fL Critically low 9.5-13.5 [facility] Comment on above: Performed By: #### C BC #### [facility] [address] [place] [address] Dr. Aston El PLT 240 103/ul Normal 150-450 [facility] Comment on above: Performed By: #### C BC #### [facility] [address] [place] [address] Dr. Aston El RBC 4.88 106/ul Normal 4.70-6.10 [facility] Comment on above: Performed By: #### C BC #### [facility] [address] [place] [address] Dr. Aston El WBC 4.6 103/ul Normal 4.0-11.0 [facility] Comment on above: Performed By: #### C BC #### [facility] [address] [place] [address] Dr. Aston El D-DIMERon 07-07-2021 D-DIMER 0.19 mg/L FEU Normal 0.19-0.50 [facility] Comment on above: Performed By: #### D DIM #### [facility] [address] [place] [address] Dr. Aston El D-DIMER COMMENTS SEE BELOW Normal [facility] Comment on above: Result Comment: Incr [...] hospitalization. Performed By: #### D DIM #### [facility] [address] [place] [address] Dr. Aston El PROF CHEM 8 (BAS METB)on Anion gap [Moles/Vol] 10.7 mmol/L Normal [facility] Comment on above: Performed By: #### H STROPN, BMP #### [facility] [address] [place] [address] Dr. Aston El Calcium [Mass/Vol] 9.3 mg/dL Normal 8.5-10.1 [facility] Comment on above: Performed By: #### H STROPN, BMP #### [facility] [address] [place] [address] Dr. Aston El Chloride [Moles/Vol] 103 mmol/L Normal 98-107 [facility] Comment on above: Performed By: #### H STROPN, BMP #### [facility] [address] [place] [address] Dr. Aston El CO2 [Moles/Vol] 30.2 mmol/L Normal 21.0-32.0 [facility] Comment on above: Performed By: #### H STROPN, BMP #### [facility] [address] [place] [address] Dr. Aston El Creatinine [Mass/Vol] 1.10 mg/dL Normal 0.70-1.30 [facility] Comment on above: Performed By: #### H SOFIAPN, BMP #### [facility] [address] [place] [address] Dr. Aston El EGFR-AF PERUVIAN >60 Normal >=60 [facility] Comment on above: Performed By: #### H STROPN, BMP #### [facility] [address] [place] [address] Dr. Aston El EGFR-NON AF PERUVIAN >60 Normal >=60 [facility] Comment on above: Performed By: #### H SOFIAPN, BMP #### [facility] [address] [place] [address] Dr. Aston El Glucose [Mass/Vol] 94 mg/dL Normal 74-106 [facility] Comment on above: Performed By: #### H OLGA LIDIA, BMP #### [facility] [address] [place] [address] Dr. Aston El Potassium [Moles/Vol] 3.9 mmol/L Normal 3.5-5.1 [facility] Comment on above: Performed By: #### H OLGA LIDIA, BMP #### [facility] [address] [place] [address] Dr. Aston El Sodium [Moles/Vol] 140 mmol/L Normal 136-145 [facility] Comment on above: Performed By: #### H OLGA LIDIA, BMP #### [facility] [address] [place] [address] Dr. Aston El Urea nitrogen [Mass/Vol] 11.0 mg/dL Normal 6.4-19.3 [facility] Comment on above: Performed By: #### H OLGA LIDIA, BMP #### [facility] [address] [place] [address] Dr. Aston El Urea nitrogen/Creatinine [Mass ratio] 10.0 mg/mg Normal [facility] Comment on above: Performed By: #### H OLGA LIDIA, BMP #### [facility] [address] [place] [address] Dr. Aston El TROPONIN, HIGH SENSITIVITYon 07-07-2021 HSTROP 4.2 pg/mL Normal 4.0-76.1 [facility] Comment on above: Result Comment: CUT- OFF POINTS HAVE BEEN ESTABLISHED BASED ON THE FOURTH UNIVERSAL DEFINITIONS OF MYOCARDIAL INFARCTION. THE UPPER REFERENCE LIMIT (URL) OF TROPONIN, DEFINED THE 99TH PERCENTILE OF cTnI DISTRIBUTION IN A REFERENCE POPULATION, HAS BEEN CONFIRMED THE DECISION THRESHOLD FOR OR DIAGNOSIS. Performed By: #### H OLGA LIDIA, BMP #### [facility] [address] [place] [address] Dr. Aston El XR CHEST 1 Von [...] IMPRESSION: 1. Normal examination. Electronically authenticated by: MARK ALCANTAR Date: 2021-07-07 10:10 Normal [facility] Vital Signs Date Time Vital Sign Value Performing Clinician Facility 09-02-2024 09:31-0400 Body temperature 97.5 [degF] Reno Korey DO Work Phone: [facility] 09-02-2024 09:31-0400 Diastolic blood pressure 76 mm[Hg] Reno Korey DO Work Phone: [facility] 09-02-2024 09:31-0400 Heart rate 80 /min Reno Korey DO Work Phone: [facility] 09-02-2024 09:31-0400 Respiratory rate 14 /min Reno Korey DO Work Phone: [facility] 09-02-2024 09:31-0400 SaO2% (BldA) [Mass fraction] 100 % Reno Korey DO Work Phone: [facility] 09-02-2024 09:31-0400 Systolic blood pressure 126 mm[Hg] Reno Korey DO Work Phone: [facility] 09-02-2024 07:26-0400 Body height 170.2 cm Reno Korey DO Work Phone: [facility] 09-02-2024 07:26-0400 Body mass index (BMI) [Ratio] 20.36 kg/m2 Reno Korey DO Work Phone: [facility] 09-02-2024 07:26-0400 Body weight 58.97 kg Reno Korey DO Work Phone: [facility] 08-31-2024 23:49-0400 Body temperature 98.29 [degF] Thad Castillo MD Work Phone: [facility] 08-31-2024 23:49-0400 Diastolic blood pressure 61 mm[Hg] Thad Castillo MD Work Phone: [facility] 08-31-2024 23:49-0400 Heart rate 70 /min Thad Castillo MD Work Phone: [facility] 08-31-2024 23:49-0400 Respiratory rate 16 /min Thad Castillo MD Work Phone: [facility] 08-31-2024 23:49-0400 SaO2% (BldA) [Mass fraction] 100 % Thad Castillo MD Work Phone: [facility] 08-31-2024 23:49-0400 Systolic blood pressure 129 mm[Hg] Thad Castillo MD Work Phone: [facility] 11-26-2023 19:06-0400 Body temperature 98.2 [degF] Thad Castillo MD Work Phone: [facility] 11-26-2023 19:06-0400 Diastolic blood pressure 62 mm[Hg] Thad Castillo MD Work Phone: [facility] 11-26-2023 19:06-0400 Heart rate 80 /min Thad Castillo MD Work Phone: [facility] 11-26-2023 19:06-0400 Respiratory rate 16 /min Thad Castillo MD Work Phone: [facility] 11-26-2023 19:06-0400 SaO2% (BldA) [Mass fraction] 100 % Thad Castillo MD Work Phone: [facility] 11-26-2023 19:06-0400 Systolic blood pressure 130 mm[Hg] Thad Castillo MD Work Phone: [facility] 11-26-2023 18:33-0400 Body height 170.2 cm Thad Castillo MD Work Phone: [facility] 11-26-2023 18:33-0400 Body mass index (BMI) [Ratio] 19.58 kg/m2 Thad Castillo MD Work Phone: [facility] 11-26-2023 18:33-0400 Body weight 56.7 kg Thad Castillo MD Work Phone: [facility] 11-22-2023 16:12-0400 Diastolic blood pressure 78 mm[Hg] Palomo Daigle MD Work Phone: [facility] 11-22-2023 16:12-0400 Heart rate 75 /min Palomo Daigle MD Work Phone: [facility] 11-22-2023 16:12-0400 Respiratory rate 18 /min Palomo Daigle MD Work Phone: [facility] 11-22-2023 16:12-0400 SaO2% (BldA) [Mass fraction] 99 % Palomo Daigle MD Work Phone: [facility] 11-22-2023 16:12-0400 Systolic blood pressure 124 mm[Hg] Palomo Daigle MD Work Phone: [facility] 11-22-2023 14:29-0400 Body height 170.2 cm Palomo Daigle MD Work Phone: [facility] 11-22-2023 14:29-0400 Body mass index (BMI) [Ratio] 19.58 kg/m2 Palomo Daigle MD Work Phone: [facility] 11-22-2023 14:29-0400 Body temperature 98.71 [degF] Palomo Daigle MD Work Phone: [facility] 11-22-2023 14:29-0400 Body weight 56.7 kg Palomo Daigle MD Work Phone: [facility] 07-20-2023 08:40-0400 Body height 170.2 cm Tessie Dewitt Jr., MD Work Phone: [facility] 07-20-2023 08:40-0400 Body mass index (BMI) [Ratio] 19.73 kg/m2 Tessie Dewitt Jr., MD Work Phone: [facility] 07-20-2023 08:40-0400 Body weight 57.15 kg Tessie Dewitt Jr., MD Work Phone: [facility] 07-20-2023 08:40-0400 Diastolic blood pressure 61 mm[Hg] Tessie Dewitt Jr., MD Work Phone: [facility] 07-20-2023 08:40-0400 Heart rate 72 /min Tessie Dewitt Jr., MD Work Phone: [facility] 07-20-2023 08:40-0400 Systolic blood pressure 115 mm[Hg] Tessie Dewitt Jr., MD Work Phone: [facility] 06-08-2023 08:25-0400 Body height 170.2 cm Tessie Dewitt Jr., MD Work Phone: [facility] 06-08-2023 08:25-0400 Body mass index (BMI) [Ratio] 19.73 kg/m2 Tessie Dewitt Jr., MD Work Phone: [facility] 06-08-2023 08:25-0400 Body weight 57.15 kg Tessie Dewitt Jr., MD Work Phone: [facility] 06-08-2023 08:25-0400 Diastolic blood pressure 61 mm[Hg] Tessie Dewitt Jr., MD Work Phone: [facility] 06-08-2023 08:25-0400 Heart rate 61 /min Tessie Dewitt Jr., MD Work Phone: [facility] 06-08-2023 08:25-0400 Systolic blood pressure 110 mm[Hg] Tessie Dewitt Jr., MD Work Phone: [facility] 05-04-2023 10:20-0500 Body height 170.2 cm Tessie Dewitt Jr., MD Work Phone: [employer] 05-04-2023 10:20-0500 Body mass index (BMI) [Ratio] 19.73 kg/m2 Tessie Dewitt Jr., MD Work Phone: [facility] 05-04-2023 10:20-0500 Body weight 57.15 kg Tessie Dewitt Jr., MD Work Phone: [employer] 05-04-2023 10:20-0500 Diastolic blood pressure 63 mm[Hg] Tessie Dewitt Jr., MD Work Phone: [employer] 05-04-2023 10:20-0500 Heart rate 74 /min Tessie Dewitt Jr., MD Work Phone: [employer] 05-04-2023 10:20-0500 Systolic blood pressure 116 mm[Hg] Tessie Dewitt Jr., MD Work Phone: [employer] 07-24-2021 11:00-0400 Body height 167.64 cm Hubert Luna Other [employer] Other 07-24-2021 11:00-0400 Body mass index (BMI) [Ratio] 21.04 kg/m2 Hubert Luna Other [employer] Other 07-24-2021 11:00-0400 Body temperature 98 [degF] Hubert Luna Other [employer] Other 07-24-2021 11:00-0400 Body weight 59.15 kg Hubert Luna Other [employer] Other 07-24-2021 11:00-0400 Diastolic blood pressure 68 mm[Hg] Hubert Luna Other [employer] Other 07-24-2021 11:00-0400 Respiratory rate 18 /min Hubert Luna Other [employer] Other 07-24-2021 11:00-0400 SaO2% (BldA) [Mass fraction] 98 % Hubert Luna Other [employer] Other 07-24-2021 11:00-0400 Systolic blood pressure 116 mm[Hg] Hubert Luna Other [employer] Other Encounters Encounter Date Encounter Type Care Provider Facility Start: 09-02-2024 End: 09-02-2024 Emergency department patient visit Reno Nair DO Work Phone: [facility] Comment on above: Chest pain, unspecif ied type (Primary Dx); Neck pain Start: 08-31-2024 End: 09-01-2024 Emergency department patient visit Thad Castillo MD Work Phone: [facility] Comment on above: Neck pain (Primary D x) Start: 08-13-2024 End: 08-13-2024 Emergency department patient visit Ricky Omaira Andino Facility:[facility] Start: 11-26-2023 End: 11-26-2023 Emergency department patient visit Thad Castillo MD Work Phone: [facility] Comment on above: Headache disorder (P rimary Dx) Start: 11-22-2023 End: 11-22-2023 Subsequent hospital visit by physician [facility] Exam Room [address] [facility] [address] Comment on above: Arrived Start: 11-22-2023 End: 11-22-2023 Emergency department patient visit Palomo Daigle MD Work Phone: [facility] Comment on above: Acute nonintractable headache, unspecified headache type (Primary Dx); Tension headache Start: 09-21-2023 End: 09-21-2023 Documentation procedure Tessie Dewitt MD Work Phone: [facility] Start: 09-21-2023 End: 09-21-2023 Telephone encounter Tessie Dewitt MD Work Phone: [facility] Start: 09-17-2023 End: 09-17-2023 Telephone encounter Soumya Gildardo KIRK [facility] Start: 07-20-2023 End: 07-20-2023 ambulatory TESSIE DEWITT [facility] Start: 07-20-2023 End: 07-20-2023 Office outpatient visit 25 minutes Tessie Dewitt MD Work Phone: [facility] Comment on above: Left varicocele (Linette osiris Dx); Left testicular pain; Urologic disorders; Right kidney stone; Other microscopic hematuria; Epididymal cyst Start: 06-28-2023 End: 06-29-2023 ambulatory TESSIE DEWITT [facility] Start: 06-14-2023 ambulatory NILDA Gee ty:MAY Flores Start: 06-08-2023 End: 06-08-2023 ambulatory TESSIE K [facility] Start: 06-08-2023 End: 06-08-2023 Office outpatient visit 25 minutes Tessie Dewitt MD Work Phone: [facility] Comment on above: Left testicular pain (Primary Dx); Urologic disorders; Other microscopic hematuria; Epididymal cyst; Left varicocele; Right kidney stone Start: 05-08-2023 End: 05-09-2023 ambulatory TESSIE DEWITT [facility] Start: 05-04-2023 End: 05-05-2023 ambulatory TESSIE DEWITT [facility] Start: 05-04-2023 End: 05-04-2023 ambulatory TESSIE DEWITT [facility] Start: 05-04-2023 End: 05-04-2023 Office consultation new/estab patient 60 min Tessie Dewitt MD Work Phone: [facility] Comment on above: Urologic [...] End: 11-02-2021 Emergency department patient visit LUCAS [facility]il[facility] Start: 07-24-2021 End: 07-24-2021 ambulatory Hubert Luna Other [employer] Other Start: 07-24-2021 Office outpatient vi sit 25 minutes Hubert Luna [facility] Start: 07-07-2021 End: 07-07-[address] LUCAS COCHRAN Facility: Procedures Date Procedure Procedure Detail Performing Clinician Start: 09-02-2024 Ct cervical spine w/ o contrast material Reno Nair DO Work Phone: Start: 09-02-2024 Ct head/brain w/o co ntrast material Reno Nair DO Work Phone: Start: 09-02-2024 End: 09-02-2024 Comprehensive metabolic panel Reno Nair DO Work Phone: Start: 09-02-2024 Troponin I.cardiac p christian - Serum or Plasma by High sensitivity method Reno Nair DO Work Phone: Start: 09-02-2024 Radiologic exam ches t single view Reno Nair DO Work Phone: Start: 11-22-2023 Ct head/brain w/o co ntrast material Palomo Daigle MD Work Phone: Start: 06-08-2023 Follow-up visit Follow-up TESSIE DEWITT JR Plan of Treatment Date Care Activity Detail Author Start: 2078 RSV Immunization for Adults (1 - 1-dose 75+ series) RSV Immunization for Adults (1 - 1-dose 75+ series) [facility] Start: 2063 RSV Immunization age d 60 or older (1 - 1-dose 60+ series) RSV Immunization aged 60 or older (1 - 1-dose 60+ series) [facility] Start: 2053 Zoster Vaccines (1 of 2) Zoster Vacc fernando (1 of 2) [facility] Start: 10-10-2032 DTaP/Tdap/Td Vaccine s (2 - Td or Tdap) DTaP/Tdap/Td Vaccines (2 - Td or Tdap) [facility] Start: 10-27-2024 Influenza vaccination Influenza Vacc ine (#1) [facility] Start: 07-19-2024 Adult BMI Screening Adult BMI Screen ing [facility] Start: 07-19-2024 Tobacco Screening Tobacco Screening [facility] Start: 06-07-2024 Adult BMI Screening Adult BMI Screen ing [facility] Start: 06-07-2024 Tobacco Screening Tobacco Screening [facility] Start: 05-03-2024 Adult BMI Screening Adult BMI Screen ing [facility] Start: 05-03-2024 Tobacco Screening Tobacco Screening [facility] Start: 10-28-2023 COVID-19 Vaccine ( season) COVID-19 Vaccine ( season) [facility] Start: 10-28-2023 COVID-19 Vaccine ( season) COVID-19 Vaccine ( season) [facility] Start: 10-28-2023 Influenza vaccination S [facility] Start: 09-21-2023 End: 09-21-2023 Patient encounter procedure 09/21/2023 9:30 AM EDT Office Visit [facility] [address] [place] [address] [address] [facility] [place] [address] Tessie Dewitt Jr., MD [address] [place] [id number] [facility] Start: 09-19-2023 End: 07-19-2024 XR Abdomen AP X-ray abdomen ap 1 view Imaging Routine Right kidney stone Expected: 09/19/2023 (Approximate), Expires: 07/19/2024 [facility] Work Phone: Comment on above: Expected: 09/19/2023 (Approximate), Expires: 07/19/2024 Start: 07-20-2023 End: 07-20-2023 Patient encounter procedure 07/20/2023 8:45 AM EDT Office Visit [facility] [address] [place] [address] [place] [address] Tessie Dewitt Jr., MD [address] [place] [id number] [facility] Start: 06-08-2023 End: 06-07-2024 CT Abdomen and Pelvis WO contrast CT abdomen and pelvis without contrast Imaging Routine Left testicular pain Right kidney stone Expected: 06/08/2023, Expires: 06/07/2024 [facility] Work Phone: Comment on above: Expected: 06/08/2023 , Expires: 06/07/2024 Start: 06-08-2023 End: 06-08-2023 Patient encounter procedure 06/08/2023 8:30 AM EDT Office Visit [facility] [address] [place] [address] [place] [address] Tessie Dewitt Jr., MD [address] [place] [id number] [facility] Start: 05-04-2023 End: 05-03-2024 US Retroperitoneum Ultrasound retroperitoneal complete Imaging Routine Other microscopic hematuria Expected: 05/04/2023, Expires: 05/03/2024 [facility] Work Phone: Comment on above: Expected: 05/04/2023 , Expires: 05/03/2024 Start: 05-04-2023 End: 05-03-2024 US.doppler Scrotum and testicle Ultrasound scrotum for TORSION with duplex Imaging Routine Other microscopic hematuria Expected: 05/04/2023, Expires: 05/03/2024 [facility] Comment on above: Expected: 05/04/2023 , Expires: 05/03/2024 Start: 10-27-2022 COVID-19 Vaccine ( season) COVID-19 Vaccine ( season) [facility] Start: 10-27-2022 Influenza vaccination Influenza Vacc ine [facility] Start: 2022 DTaP/Tdap/Td Vaccine s (1 - Tdap) DTaP/Tdap/Td Vaccines (1 - Tdap) [facility] Start: 2022 Hepatitis B Vaccines (1 of 3 - 19+ 3-dose series) Hepatitis B Vaccines (1 of 3 - 19+ 3-dose series) [facility] Start: 2021 Hepatitis C screening Hepatitis C Sc reening [facility] Start: 2019 Meningococcal B Vacc ine (1 of 2 - Standard) Meningococcal B Vaccine (1 of 2 - Standard) [facility] Start: 2018 HPV Vaccines (1 - Ma le 3-dose series) HPV Vaccines (1 - Male 3-dose series) [facility] Start: 2016 Varicella vaccination Varicell a Vaccines (1 of 2 - 13+ 2-dose series) [facility] Start: 2015 Depression Screening Depression Scre ening [facility] Start: 2014 DTaP,Tdap and Td Vac cines (5 - Tdap) DTaP,Tdap and Td Vaccines (5 - Tdap) [facility] Start: 2010 DTaP/Tdap/Td Vaccine s (1 - Tdap) DTaP/Tdap/Td Vaccines (1 - Tdap) [facility] Start: 2007 Hearing Screening (#1) Hearing Scree karlie (#1) [facility] Start: 2004 MMR Vaccines (1 of 1 - Standard series) MMR Vaccines (1 of 1 - Standard series) [facility] Start: 2003 HIV screening HIV Screening [facility] Start: 2003 Lipid panel Lipid Panel [facility] Start: 01-23-2004 Yearly Adult Physical Yearly Adult [facility] End: 09-02-2024 Pulse oximetry, continuous Pulse oximetry, continuous Respiratory Care STAT Continuous until discontinued starting 09/02/2024 [facility] Service Area Work Phone: Comment on above: Continuous until dis continued starting 09/02/2024 Immunizations Immunization Date Immunization Notes Care Provider Saroj nava 12-30-2020 influenza virus vaccine, unspecified formulation Tessie Dewitt Jr., MD Work Phone: [facility] Payers Date Payer Category Payer Self-pay 2024 Unknown [id number] 2022 Commercial Managed C [facility] UMR OPT [id number] 2022 Managed Care (Private) [facility] [id number] 2022 Private Health Insurance [id number] 2022 Private Health Insurance [id number] 2021 Unknown 2003 Unknown [id number] 2.16.840.1.469810.3.579.2. 902 2003 Unknown [id number] 2.16.840.1.483993.3.579.2. 593 2003 Unknown [id number] 2.16.840.1.830873.3.579.2. 593 2003 Unknown [id number] 2.16.840.1.905895.3.579.2. 593 2003 Unknown [id number] 2.16.840.1.989614.3.579.2. 1286 2003 Unknown [id number] 2.16.840.1.682247.3.579.2. 1286 2003 Unknown [id number] 2.16.840.1.076544.3.579.2. 1286 2003 Unknown [id number] 2.16.840.1.951256.3.579.2. 1286 2003 Unknown [id number] 2.16.840.1.276343.3.579.2. 1286 2003 Unknown [id number] 2.16.840.1.567526.3.579.2. 1286 2003 Unknown [id number] 2.16.840.1.508664.3.579.2. 1286 2003 Unknown [id number] 2.16.840.1.744185.3.579.2. 1243 1963 Unknown [id number] 2.16.840.1.783476.3.579.2. 593 1963 Unknown [id number] 2.16.840.1.760250.3.579.2. 593 1961 Unknown [id number] 2.16.840.1.778467.3.579.2. 727 1961 Unknown [id number] 2.16.840.1.319953.3.579.2. 727 1959 Unknown [id number] 2.16.840.1.420148.19 1959 Unknown [id number] 2.16.840.1.508229.19 Unknown [id number] 2.16.840.1.582207.3.579.2. 531 Social History Date Type Detail Facility Unknown if ever smoked [employer] Other Start: 11-22-2023 End: 09-02-2024 Sex Assigned At [employer] Other Start: 11-22-2023 End: 09-02-2024 Tobacco smoking status NHIS Never smoked tobacco [facility] Start: 11-22-2023 End: 09-02-2024 Tobacco use and exposure Smokeless tobacco non-user [facility] Start: 2003 Sex assigned at Not on file [facility] Start: 11-22-2023 End: 09-02-2024 History of Social function [facility] How often to you hav e a drink containing alcohol? Never [facility] How many standard drinks containing alcohol do you have on a typical day? 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 Removed door from [facility] and it fell onto his head/neck. Was seen Sunday at [place] who prescribed Zanaflex. Pt reports they did not image him. Pt reports driving to work today and wasn't able to move his neck so he pulled over and called 911. 39-year-old male presenting with head and neck pain. He states that on Sunday he was working around his house in a door that was taken off of his kids room was sitting at the wall which fell and struck him in the head and neck. He states initially he did not have any pain at night but woke up the next morning with severe pain in the neck. Denies any numbness or tingling. Denies LOC. Not anticoagulation. He states the next day he was seen at [place] and no imaging was done. He was sent home on Zanaflex but states the pain is still present. He describes it as 7/10 of pain. Patient states that he started to experience pain this morning and started getting chest pressure and having palpitations. Denies any cardiac history other than a history of palpitations. Currently his symptoms are improving. Patient History Medical History[1] Surgical History[2] Family History[3] Social History[4] Physical Exam ED Triage Vitals [09/02/24 0726] Temperature Heart Rate Respirations BP 36.6 C (97.8 F) 78 18 133/76 Pulse Ox Temp src Heart Rate Source Patient Position 100 % -- -- -- BP Location FiO2 (%) -- -- Physical Exam Vitals and nursing note reviewed. Constitutional: Appearance: Normal appearance. HENT: Head: Normocephalic and atraumatic. Mouth/Throat: Mouth: Mucous membranes are moist. Eyes: Extraocular Movements: Extraocular movements intact. Pupils: Pupils are equal, round, and reactive to light. Neck: Trachea: Trachea normal. Cardiovascular: Rate and Rhythm: Normal rate and regular rhythm. Pulses: Normal pulses. Pulmonary: Effort: Pulmonary effort is normal. Breath sounds: Normal breath sounds. Musculoskeletal: Cervical back: No crepitus. Muscular tenderness present. Decreased range of motion. Skin: General: Skin is warm and dry. Neurological: General: No focal deficit present. Mental Status: He is alert and oriented to person, place, and time. Psychiatric: Mood and Affect: Mood normal. ED Course & MDM Diagnoses as of 09/02/24 0920 Chest pain, unspecified type Neck pain No data recorded Cr[place] Coma Scale Score: 15 (09/02/24 0728 : Jean Hernandez RN) Medical Decision Making Patient presenting with initial complaint of head and neck pain after traumatic injury with the door falling onto his head and neck on Sunday. He states the pain is still present even with Zanaflex. Patient also complains of chest pressure this morning without any significant cardiac history. Differential includes but is not limited to ACS, anxiety, pneumonia, costochondritis, dehydration, anemia, electrolyte abnormalities, cervical strain, C-spine fracture, cranial hemorrhage. CBC will be obtained to assess white blood cell count, hemoglobin and platelet. CMP to assess liver function, renal function, electrolytes, glucose. High-sensitivity troponin and EKG to assess for ischemia/dysrhythmia. Chest x-ray will be obtained as per report. CT brain and cervical spine to be obtained. Patient medicated with morphine and Zofran. EKG interpreted by myself shows a sinus rhythm at 69 bpm without evidence of ischemic change. Chest x-ray interpreted by myself shows no acute cardiopulmonary process. Radiology interprets and agrees. High-sensitivity troponin and delta troponin normal at 3 therefore there is no significant interval change. CBC and CMP unremarkable. Magnesium level within normal limits. CT of the head and cervical spine are both negative for acute findings. Counseled patient from a cardiac standpoint he is low risk and could follow-up outpatient with his PCP in addition to his we discussed his neck pain and I recommended ibuprofen, ice, follow-up with PCP as well. Return precautions were discussed. Patient discharged home in stable condition. Procedure Procedures [1] History reviewed. No pertinent past medical history. [2] History reviewed. No pertinent surgical history. [3] No family history on file. [4] Social History Tobacco Use Smoking status: Never Smokeless tobacco: Never Substance Use Topics Alcohol use: Not Currently Drug use: Never Reno Nair DO 09/02/24 0921 [facility] Work Phone: 09-02-2024 Emergency department Note HPI Chief Complaint Patient presents with Neck Pain Neck pain s/p injury Sunday. [facility] head/neck. Was seen Sunday at [place] who prescribed Zanaflex. Pt reports they did not image him. Pt reports driving to work today and wasn't able to move his neck so he pulled over and called 911. 39-year-old male presenting with head and neck pain. He states that on Sunday he was working around his house in a door that was taken off of his kids room was sitting at the wall which fell and struck him in the head and neck. He states initially he did not have any pain at night but woke up the next morning with severe pain in the neck. Denies any numbness or tingling. Denies LOC. Not anticoagulation. He states the next day he was seen at [place] and no imaging was done. He was sent home on Zanaflex but states the pain is still present. He describes it as 7/10 of pain. Patient states that he started to experience pain this morning and started getting chest pressure and having palpitations. Denies any cardiac history other than a history of palpitations. Currently his symptoms are improving. Patient History Medical History[1] Surgical History[2] Family History[3] Social History[4] Physical Exam ED Triage Vitals [09/02/24 0726] Temperature Heart Rate Respirations BP 36.6 C (97.8 F) 78 18 133/76 Pulse Ox Temp src Heart Rate Source Patient Position 100 % -- -- -- BP Location FiO2 (%) -- -- Physical Exam Vitals and nursing note reviewed. Constitutional: Appearance: Normal appearance. HENT: Head: Normocephalic and atraumatic. Mouth/Throat: Mouth: Mucous membranes are moist. Eyes: Extraocular Movements: Extraocular movements intact. Pupils: Pupils are equal, round, and reactive to light. Neck: Trachea: Trachea normal. Cardiovascular: Rate and Rhythm: Normal rate and regular rhythm. Pulses: Normal pulses. Pulmonary: Effort: Pulmonary effort is normal. Breath sounds: Normal breath sounds. Musculoskeletal: Cervical back: No crepitus. Muscular tenderness present. Decreased range of motion. Skin: General: Skin is warm and dry. Neurological: General: No focal deficit present. Mental Status: He is alert and oriented to person, place, and time. Psychiatric: Mood and Affect: Mood normal. ED Course & MDM Diagnoses as of 09/02/24 0920 Chest pain, unspecified type Neck pain No data recorded [place] Coma Scale Score: 15 (09/02/24 0728 : Jean Hernandez RN) Medical Decision Making Patient presenting with initial complaint of head and neck pain after traumatic injury with the door falling onto his head and neck on Sunday. He states the pain is still present even with Zanaflex. Patient also complains of chest pressure this morning without any significant cardiac history. Differential includes but is not limited to ACS, anxiety, pneumonia, costochondritis, dehydration, anemia, electrolyte abnormalities, cervical strain, C-spine fracture, cranial hemorrhage. CBC will be obtained to assess white blood cell count, hemoglobin and platelet. CMP to assess liver function, renal function, electrolytes, glucose. High-sensitivity troponin and EKG to assess for ischemia/dysrhythmia. Chest x-ray will be obtained as per report. CT brain and cervical spine to be obtained. Patient medicated with morphine and Zofran. EKG interpreted by myself shows a sinus rhythm at 69 bpm without evidence of ischemic change. Chest x-ray interpreted by myself shows no acute cardiopulmonary process. Radiology interprets and agrees. High-sensitivity troponin and delta troponin normal at 3 therefore there is no significant interval change. CBC and CMP unremarkable. Magnesium level within normal limits. CT of the head and cervical spine are both negative for acute findings. Counseled patient from a cardiac standpoint he is low risk and could follow-up outpatient with his PCP in addition to his we discussed his neck pain and I recommended ibuprofen, ice, follow-up with PCP as well. Return precautions were discussed. Patient discharged home in stable condition. Procedure Procedures [1] History reviewed. No pertinent past medical history. [2] History reviewed. No pertinent surgical history. [3] No family history on file. [4] Social History Tobacco Use Smoking status: Never Smokeless tobacco: Never Substance Use Topics Alcohol use: Not Currently Drug use: Never Reno Nair DO 09/02/24 0921 documented in this encounter [facility] Work Phone: 09-01-2024 Hospital Discharg e instructions Thad Castillo MD - 09/01/2024 12:26 AM EDT Take extra strength Tylenol every 6 hours for 2 days Take ibuprofen every 6 hours as needed for pain The following attachments cannot be sent through Care Everywhere.Neck Pain Exercises (Malian)documented in this encounter [facility] 08-31-2024 Emergency department Note EMERGENCY DEPARTMENT ENCOUNTER Pt Name: Jean Garcia Birthdate 2005 Date of evaluation: 08/31/2024 CHIEF COMPLAINT Chief Complaint Patient presents with Neck Pain No injury HISTORY OF PRESENT ILLNESS HPI Jean Garcia is a 19 y.o. male who presents to the emergency department with neck pain, he woke up with symptoms 2 days ago. He has decreased range of motion of the neck. No fever no numbness no weakness of the extremities, no bowel incontinence or bladder incontinence. No injury. He has tried Biofreeze. Hrrj-iyy-ektqrjm medication. He would like a work note. [...] Insecurity: No Food Insecurity (07/20/2023) Received from [facility] Hunger Screening Within the past 12 months [...] Sitting Pulse: 70 Resp: 16 Temp: 36.8 C (98.3 F) SpO2: 100% Physical Exam Vitals and nursing [...] normal. Thought Content: Thought content normal. SCREENINGS Crandon Coma Scale Best Eye Response: Spontaneous Best Verbal Response: Oriented Best Motor Response: Follows commands Cr[place] Coma Scale Score: 15 Medical decision making [...] diagnostics esr, clinically not septic hence not ordered unlikely, epidural abscess.. Prescription medications considered but not [...] spelling, as well as words and phrases) Thad Castillo MD (electronically signed) Thad Castlilo MD 09/01/24 0032 documented in this encounter [facility] 08-31-2024 Physician Emergency department Note EMERGENCY DEPARTMENT ENCOUNTER Pt Name: Jean Garcia Birthdate 2005 Date of evaluation: 08/31/2024 CHIEF COMPLAINT Chief Complaint Patient presents with Neck Pain No injury HISTORY OF PRESENT ILLNESS HPI Jean Garcia is a 19 y.o. male who presents to the emergency department with neck pain, he woke up with symptoms 2 days ago. He has decreased range of motion of the neck. No fever no numbness no weakness of the extremities, no bowel incontinence or bladder incontinence. No injury. He has tried Biofreeze. Irkc-gax-fkqfufy medication. He would like a work note. [...] Insecurity: No Food Insecurity (07/20/2023) Received from [facility] Hunger Screening Within the past 12 months [...] Sitting Pulse: 70 Resp: 16 Temp: 36.8 C (98.3 F) SpO2: 100% Physical Exam Vitals and nursing [...] normal. Thought Content: Thought content normal. SCREENINGS Cr[place] Coma Scale Best Eye Response: Spontaneous Best Verbal Response: Oriented Best Motor Response: Follows commands Cr[place] Coma Scale Score: 15 Medical decision making [...] diagnostics esr, clinically not septic hence not ordered unlikely, epidural abscess.. Prescription medications considered but not [...] spelling, as well as words and phrases) Thad Castillo MD (electronically signed) Thad Castillo MD 09/01/24 0032 T [facility] 11-26-2023 Emergency department Note EMERGENCY DEPARTMENT ENCOUNTER Pt Name: Jean Garcia Birthdate 2005 Date of evaluation: 11/26/2023 CHIEF COMPLAINT Chief Complaint Patient presents with Headache Pt reports headache since last Sunday. Came to ED on and received a ct scan/headache cocktail and left ED with no relief of headache. Pt reports he took motrin last night for [place] without relief but has not kept up on pain medications. Pt denies HX of migraines, took covid test at home that was negative. HISTORY OF PRESENT ILLNESS HPI Jean Garcia is a 18 y.o. male who presents to the emergency department with headache. Was seen before had a CAT scan done. Home COVID test was negative. He has been trying ibuprofen without significant relief. Normal vision no double vision no focal weakness no numbness no loss of consciousness. Headache started approximately 7 days ago. Pain in the neck. Some photophobia. Denies nausea, denies vomiting to me. No fever. Headache started gradually. REVIEW OF SYSTEMS Review of Systems There is no problem list on file for this patient. CURRENT MEDICATIONS Previous Medications CYCLOBENZAPRINE (FLEXERIL) 10 MG TABLET Take 1 tablet (10 mg) by mouth 3 times daily as needed for muscle spasms for up to 4 days. IBUPROFEN 800 MG TABLET Take 1 tablet (800 mg) by mouth every 8 hours as needed for mild pain (1-3) for up to 7 days. ALLERGIES Patient has no known allergies. SOCIAL HISTORY Social History Tobacco Use Smoking status: Never Smokeless tobacco: Never Social Determinants of Health Tobacco Use: Low Risk (11/26/2023) Patient History Smoking Tobacco Use: Never Smokeless Tobacco Use: Never Passive Exposure: Not on file Alcohol Use: Not At Risk (11/26/2023) AUDIT-C Frequency of Alcohol Consumption: Never Average Number of Drinks: Patient does not drink Frequency of Binge Drinking: Never Financial Resource Strain: Not on file Food Insecurity: No Food Insecurity (07/20/2023) Received from [facility] Hunger Screening Within the past 12 months [...] file Intimate Partner Violence: Not on file Depression: Not on file Housing Stability: Not on file Utilities: Not on file Health Literacy: Not on file PHYSICAL EXAM Vitals: 11/26/23 1833 11/26/23 1841 BP: 132/64 Pulse: 82 Resp: 16 Temp: 36.7 C (98 F) TempSrc: Oral SpO2: 100% 100% Weight: 56.7 kg (125 lb) Height: 1.702 m (5' 7 ) Physical Exam Vitals and nursing note reviewed. Constitutional: Appearance: He is underweight. HENT: Head: Atraumatic. Eyes: Extraocular Movements: Extraocular movements intact. Conjunctiva/sclera: Conjunctivae normal. Pupils: Pupils are equal, round, and reactive to light. Funduscopic exam: Right eye: No papilledema. Left eye: No papilledema. Neck: Vascular: No carotid bruit. Pulmonary: Effort: Pulmonary effort is normal. Breath sounds: Normal breath sounds. Musculoskeletal: Cervical back: Normal range of motion. Right lower leg: No swelling or tenderness. Left lower leg: No swelling or tenderness. Skin: General: Skin is warm and dry. Capillary Refill: Capillary refill takes less than 2 seconds. Coloration: Skin is not jaundiced. Neurological: Mental Status: He is alert and oriented to person, place, and time. Cranial Nerves: Cranial nerves 2-12 are intact. Sensory: Sensation is intact. Motor: Motor function is intact. Coordination: Coordination is intact. Gait: Gait is intact. Comments: Nih ss=0 Psychiatric: Mood and Affect: Mood normal. Behavior: Behavior normal. Thought Content: Thought content normal. SCREENINGS Crandon Coma Scale Best Eye Response: Spontaneous Best Verbal Response: Oriented Best Motor Response: Follows commands Maryse Coma Scale Score: 15 Medical decision making DIAGNOSTIC RESULTS Procedures/EKG: Physician EKG interpretation can be found in [facility] if done RADIOLOGY : Radiologist results reviewed: No orders to display LABS: Labs Reviewed - No data to display Medications ordered: Medications morphine injection 4 mg ED Course as of 11/26/231854Nov 26, 20231850 CT head wo IV contrast (11/22/23 1525) Prior medical records were reviewed: ct head nad [NM] ED Course User Index [NM] Thad Castillo MD Diagnoses as of 11/26/231854 Headache disorder * No order type specified * Our workup consisted of ordering/reviewing: Orders Placed This Encounter Procedures [facility] MEDICAL DECISION MAKING: I considered, but did not perform, additional testing such as CT Angiogram or Lumbar Puncture, as well as admission or transfer to a higher level of care. I utilized my training and experience to weigh the risk of discharge against the risks of further testing, imaging, or hospitalization. At this time the risk of SAH is remote and the risk of further testing/imaging or hospitalization is most likely higher than the risk of having SAH. SHARED DECISION MAKING: I discussed my risk assessment with the patient. The patient understands and consents to the risk of disposition/plan, as well as the risk of uncertainty in estimating outcomes. REVAL: CRITICAL CARE TIME PROCEDURES: Procedures FINAL IMPRESSION 1. Headache disorder DISPOSITION/PLAN DISPOSITION Discharge 11/26/2023 06:50:29 PM PATIENT REFERRED TO: [facility] [address] [place] [id number] [facility] [address] [facility] [address] I prescribed: New Prescriptions DEXAMETHASONE (DECADRON) 4 MG TABLET Take 1 tablet (4 mg) by mouth daily (with breakfast) for 7 days. (Comment: this report has been produced using speech recognition software and may contain errors related to that system including errors in grammar, punctuation, and spelling, as well as words and phrases that may be inappropriate) Thad Castillo MD (electronically signed) Thad Castillo MD 11/26/23 3333 documented in this encounter [facility] 11-26-2023 Physician Emergency department Note EMERGENCY DEPARTMENT ENCOUNTER Pt Name: Jean Garcia Birthdate 2005 Date of evaluation: 11/26/2023 CHIEF COMPLAINT Chief Complaint Patient presents with Headache Pt reports headache since last Sunday. Came to ED on and received a ct scan/headache cocktail and left ED with no relief of headache. Pt reports he took motrin last night for CAN[place] without relief but has not kept up on pain medications. Pt denies HX of migraines, took covid test at home that was negative. HISTORY OF PRESENT ILLNESS HPI Jean Garcia is a 18 y.o. male who presents to the emergency department with headache. Was seen before had a CAT scan done. Home COVID test was negative. He has been trying ibuprofen without significant relief. Normal vision no double vision no focal weakness no numbness no loss of consciousness. Headache started approximately 7 days ago. Pain in the neck. Some photophobia. Denies nausea, denies vomiting to me. No fever. Headache started gradually. REVIEW OF SYSTEMS Review of Systems There is no problem list on file for this patient. CURRENT MEDICATIONS Previous Medications CYCLOBENZAPRINE (FLEXERIL) 10 MG TABLET Take 1 tablet (10 mg) by mouth 3 times daily as needed for muscle spasms for up to 4 days. IBUPROFEN 800 MG TABLET Take 1 tablet (800 mg) by mouth every 8 hours as needed for mild pain (1-3) for up to 7 days. ALLERGIES Patient has no known allergies. SOCIAL HISTORY Social History Tobacco Use Smoking status: Never Smokeless tobacco: Never Social Determinants of Health Tobacco Use: Low Risk (11/26/2023) Patient History Smoking Tobacco Use: Never Smokeless Tobacco Use: Never Passive Exposure: Not on file Alcohol Use: Not At Risk (11/26/2023) AUDIT-C Frequency of Alcohol Consumption: Never Average Number of Drinks: Patient does not drink Frequency of Binge Drinking: Never Financial Resource Strain: Not on file Food Insecurity: No Food Insecurity (07/20/2023) Received from [facility] Hunger Screening Within the past 12 months [...] file Intimate Partner Violence: Not on file Depression: Not on file Housing Stability: Not on file Utilities: Not on file Health Literacy: Not on file PHYSICAL EXAM Vitals: 11/26/23 1833 11/26/23 1841 BP: 132/64 Pulse: 82 Resp: 16 Temp: 36.7 C (98 F) TempSrc: Oral SpO2: 100% 100% Weight: 56.7 kg (125 lb) Height: 1.702 m (5' 7 ) Physical Exam Vitals and nursing note reviewed. Constitutional: Appearance: He is underweight. HENT: Head: Atraumatic. Eyes: Extraocular Movements: Extraocular movements intact. Conjunctiva/sclera: Conjunctivae normal. Pupils: Pupils are equal, round, and reactive to light. Funduscopic exam: Right eye: No papilledema. Left eye: No papilledema. Neck: Vascular: No carotid bruit. Pulmonary: Effort: Pulmonary effort is normal. Breath sounds: Normal breath sounds. Musculoskeletal: Cervical back: Normal range of motion. Right lower leg: No swelling or tenderness. Left lower leg: No swelling or tenderness. Skin: General: Skin is warm and dry. Capillary Refill: Capillary refill takes less than 2 seconds. Coloration: Skin is not jaundiced. Neurological: Mental Status: He is alert and oriented to person, place, and time. Cranial Nerves: Cranial nerves 2-12 are intact. Sensory: Sensation is intact. Motor: Motor function is intact. Coordination: Coordination is intact. Gait: Gait is intact. Comments: Nih ss=0 Psychiatric: Mood and Affect: Mood normal. Behavior: Behavior normal. Thought Content: Thought content normal. SCREENINGS Crandon Coma Scale Best Eye Response: Spontaneous Best Verbal Response: Oriented Best Motor Response: Follows commands Crandon Coma Scale Score: 15 Medical decision making DIAGNOSTIC RESULTS Procedures/EKG: Physician EKG interpretation can be found in [facility] if done RADIOLOGY : Radiologist results reviewed: No orders to display LABS: Labs Reviewed - No data to display Medications ordered: Medications morphine injection 4 mg ED Course as of 11/26/231854Nov 26, 20231850 CT head wo IV contrast (11/22/23 1525) Prior medical records were reviewed: ct head nad [NM] ED Course User Index [NM] Thad Castillo MD Diagnoses as of 11/26/231854 Headache disorder * No order type specified * Our workup consisted of ordering/reviewing: Orders Placed This Encounter Procedures [facility] MEDICAL DECISION MAKING: I considered, but did not perform, additional testing such as CT Angiogram or Lumbar Puncture, as well as admission or transfer to a higher level of care. I utilized my training and experience to weigh the risk of discharge against the risks of further testing, imaging, or hospitalization. At this time the risk of SAH is remote and the risk of further testing/imaging or hospitalization is most likely higher than the risk of having SAH. SHARED DECISION MAKING: I discussed my risk assessment with the patient. The patient understands and consents to the risk of disposition/plan, as well as the risk of uncertainty in estimating outcomes. REVAL: CRITICAL CARE TIME PROCEDURES: Procedures FINAL IMPRESSION 1. Headache disorder DISPOSITION/PLAN DISPOSITION Discharge 11/26/2023 06:50:29 PM PATIENT REFERRED TO: [facility] [address] [facility] [address] [facility] [address] [facility] [address] [facility] [address] I prescribed: New Prescriptions DEXAMETHASONE (DECADRON) 4 MG TABLET Take 1 tablet (4 mg) by mouth daily (with breakfast) for 7 days. (Comment: this report has been produced using speech recognition software and may contain errors related to that system including errors in grammar, punctuation, and spelling, as well as words and phrases that may be inappropriate) Thad Castillo MD (electronically signed) Thad Castillo MD 11/26/231854 [facility] 11-22-2023 Emergency department Note [facility] ED EMERGENCY DEPARTMENT ENCOUNTER Pt Name: Jena Garcia Birthdate 2005 Date of evaluation: 11/22/2023 Provider: Palomo Daigle MD CHIEF COMPLAINT Chief Complaint Patient presents with Headache X3 days HISTORY OF PRESENT ILLNESS (Location/Symptom, Timing/Onset,Context/Setting, Quality, Duration, Modifying Factors, Severity) Note limiting factors. Jean Garcia is a 18 y.o. male who presents to the emergency department for 3 days. Started 3 days ago. He thought he slept wrong his neck was sore but then is gradual got worse headache now he has diffuse headache photophobia. Some nausea. No history of headaches no trauma. No fevers chills cough cold congestion. No blurry double vision. Acting appropriate otherwise brought in to be seen. He says he is not getting better with [id number] medication. HPI Historian is the patient Nurse's notes for past medical history, surgical history, social history were reviewed. Medications and allergies reviewed. PAST MEDICAL HISTORY History reviewed. No pertinent past medical history. SURGICALHISTORY History reviewed. No pertinent surgical history. CURRENT MEDICATIONS Previous Medications No medications on file Patient has no known allergies. FAMILY HISTORY No family history on file. SOCIAL HISTORY Social History Socioeconomic History Marital status: Single Tobacco Use Smoking status: Never Smokeless tobacco: Never Social Determinants of Health Food Insecurity: No Food Insecurity (07/20/2023) Received from [facility] Hunger Screening Within the past 12 months we worried whether our food would run out before we got money to buy more.: Never True Within the past 12 months the food we bought just didn't last and we didn't have money to get more.: Never True SCREENINGS PHYSICAL EXAM (up to 7 for level 4, 8 or more for level 5) @EDTRIAGEVSS@ Appropriate PPE including n 95, gown, gloves, goggles where worn when appropriate with this patient. Physical Exam Vital signs reviewed general: Alert and oriented 3 head: Atraumatic eyes: Equal round reactive to light and accommodating, pupils are equal, round and reactive to light and accommodation oropharynx: Clear and well hydrated neck: Supple heart: Regular rate and rhythm, no murmurs lungs: Clear to auscultation bilaterally Extremities: Moving all fours, no tenderness. Normal capillary refill. Skin: No rash or lesions -to the exposed skin neurologically: Alert and oriented 3, cranial nerves grossly intact, strength, sensation, reflexes intact. Cerebellar function intact. Gait is steady. NIH equals 0 DIAGNOSTIC RESULTS RADIOLOGY: Interpretation per the Radiologist below, if availableat the time of this note: CT head wo IV contrast Final Result No CT evidence of an acute intracranial abnormality. Report Dictated on Electronically Signed By: Mando Celestin MD Electronically Signed Date/Time: 11/22/2023 3:25 PM EDT ED BEDSIDE ULTRASOUND: Performed by ED Physician - none LABS: Labs Reviewed - No data to display All other labs were within normal range or not returned as of thisdictation. EMERGENCYDEPARTMENT COURSE and DIFFERENTIAL DIAGNOSIS/MDM: Vitals: Vitals: 11/22/23 1429 BP: 136/72 BP Location: Right arm Patient Position: Sitting Pulse: 85 Resp: 18 Temp: 37.1 C (98.7 F) TempSrc: Oral SpO2: 99% Weight: 56.7 kg (125 lb) Height: 1.702 m (5' 7 ) Medical Decision Making Problems Addressed: Acute nonintractable headache, unspecified headache type: complicated acute illness or injury Tension headache: complicated acute illness or injury Amount and/or Complexity of Data Reviewed Radiology: ordered. Risk Prescription drug management. EMERGENCY DEPARTMENT COURSE and DIFFERENTIAL DIAGNOSIS/MDM: Vitals: Vitals: 11/22/23 1429 BP: 136/72 BP Location: Right arm Patient Position: Sitting Pulse: 85 Resp: 18 Temp: 37.1 C (98.7 F) TempSrc: Oral SpO2: 99% Weight: 56.7 kg (125 lb) Height: 1.702 m (5' 7 ) The patient presented with a chief complaint of headache. The differential diagnosis associated with this patient's presentation includes tumor mass headache tension headache migraine. Our workup consisted of ordering/reviewing CT of the head. I do not believe subarachnoid hemorrhage or meningitis but he is never had headaches before so I think it is reasonable get a CT of the head to make sure is not a tumor. Likely tension headache if that is negative. Will treat him with 1 L of IV fluids. 10 mg IV Reglan 4 mg IV Zofran and 25 mg IV Benadryl. Medicine did not really help the headache. I think this points more towards that this is a tension headache. Not migraine. I do not believe is meningitis. Not the worst of his life. Do not believe lumbar puncture is needed. Will give him 15 of Toradol IV. Will send him home on a short course of Motrin and Flexeril. Will give him a new family doctor he has a primary care doctor in [place] but now lives here. Return here if any problems or concerns. Patient agrees to plan. Neurologically intact. NIH equals 0. Diagnoses as of 11/22/23 1559 Acute nonintractable headache, unspecified headache type Tension headache Diagnostics considered but not indicated based on history, physical, testing: Blood work however not clinically indicated External records reviewed: No previous visits Radiologic diagnostics interpreted by me: film images such as CT, Ultrasound and MRI are read by the radiologist. Plain radiographic images are visualized and preliminarily interpreted by the emergency physician with the below findings: CT scan(s) CT head negative for acute process per radiology. Discussions with other clinicians: none Chronic conditions impacting care: none Social determinants of health affecting care: none Shared decision making: Patient agrees to treatment plan ED Medications managed: Medications ketorolac (Toradol) injection 15 mg (has no administration in time range) diphenhydrAMINE (BENADryl) injection 25 mg (25 mg IntraVENous Given 11/22/23 1457) metoclopramide (Reglan) injection 10 mg (10 mg IntraVENous Given 11/22/23 145) sodium chloride 0.9 % bolus 1,000 mL (1,000 mL IntraVENous New Bag 11/22/23 145) ondansetron (Zofran) injection 4 mg (4 mg IntraVENous Given 11/22/23 145) Prescription drugs prescribed: Motrin and Flexeril PROCEDURES: Unless otherwise noted below, none Procedures IMPRESSION 1. Acute nonintractable headache, unspecified headache type 2. Tension headache DISPOSITION/PLAN DISPOSITION Discharge 11/22/2023 03:57:20 PM PATIENT REFERRED TO: [facility] - [address] [facility] [address] In 1 week DISCHARGE MEDICATIONS: New Prescriptions CYCLOBENZAPRINE (FLEXERIL) 10 MG TABLET Take 1 tablet (10 mg) by mouth 3 times daily as needed for muscle spasms for up to 4 days. IBUPROFEN 800 MG TABLET Take 1 tablet (800 mg) by mouth every 8 hours as needed for mild pain (1-3) for up to 7 days. @[facility]([id number]:LAST:1) @ (Comment: Please notethis report has been produced using speech recognition software and may contain errors related to that system including errors in grammar, punctuation, and spelling, as well as words and phrases that may be inappropriate.If there is any questions or concerns please feel free to contact the dictating provider for clarification). Palomo Daigle MD (electronically signed) Attending Emergency Physician Palomo Daigle MD 11/22/23 1559 documented in this encounter [facility] 11-22-2023 Physician Emergency department Note [facility] ED EMERGENCY DEPARTMENT ENCOUNTER Pt Name: Jean Garcia Birthdate 2005 Date of evaluation: 11/22/2023 Provider: Palomo Daigle MD CHIEF COMPLAINT Chief Complaint Patient presents with Headache X3 days HISTORY OF PRESENT ILLNESS (Location/Symptom, Timing/Onset,Context/Setting, Quality, Duration, Modifying Factors, Severity) Note limiting factors. Jean Garcia is a 18 y.o. male who presents to the emergency department for 3 days. Started 3 days ago. He thought he slept wrong his neck was sore but then is gradual got worse headache now he has diffuse headache photophobia. Some nausea. No history of headaches no trauma. No fevers chills cough cold congestion. No blurry double vision. Acting appropriate otherwise brought in to be seen. He says he is not getting better with [id number] medication. HPI Historian is the patient Nurse's notes for past medical history, surgical history, social history were reviewed. Medications and allergies reviewed. PAST MEDICAL HISTORY History reviewed. No pertinent past medical history. SURGICALHISTORY History reviewed. No pertinent surgical history. CURRENT MEDICATIONS Previous Medications No medications on file Patient has no known allergies. FAMILY HISTORY No family history on file. SOCIAL HISTORY Social History Socioeconomic History Marital status: Single Tobacco Use Smoking status: Never Smokeless tobacco: Never Social Determinants of Health Food Insecurity: No Food Insecurity (07/20/2023) Received from [facility]ger Screening Within the past 12 months we worried whether our food would run out before we got money to buy more.: Never True Within the past 12 months the food we bought just didn't last and we didn't have money to get more.: Never True SCREENINGS PHYSICAL EXAM (up to 7 for level 4, 8 or more for level 5) @EDTRIAGEVSS@ Appropriate PPE including n 95, gown, gloves, goggles where worn when appropriate with this patient. Physical Exam Vital signs reviewed general: Alert and oriented 3 head: Atraumatic eyes: Equal round reactive to light and accommodating, pupils are equal, round and reactive to light and accommodation oropharynx: Clear and well hydrated neck: Supple heart: Regular rate and rhythm, no murmurs lungs: Clear to auscultation bilaterally Extremities: Moving all fours, no tenderness. Normal capillary refill. Skin: No rash or lesions -to the exposed skin neurologically: Alert and oriented 3, cranial nerves grossly intact, strength, sensation, reflexes intact. Cerebellar function intact. Gait is steady. NIH equals 0 DIAGNOSTIC RESULTS RADIOLOGY: Interpretation per the Radiologist below, if availableat the time of this note: CT head wo IV contrast Final Result No CT evidence of an acute intracranial abnormality. Report Dictated on Electronically Signed By: Mando Celestin MD Electronically Signed Date/Time: 11/22/2023 3:25 PM EDT ED BEDSIDE ULTRASOUND: Performed by ED Physician - none LABS: Labs Reviewed - No data to display All other labs were within normal range or not returned as of thisdictation. EMERGENCYDEPARTMENT COURSE and DIFFERENTIAL DIAGNOSIS/MDM: Vitals: Vitals: 11/22/23 1429 BP: 136/72 BP Location: Right arm Patient Position: Sitting Pulse: 85 Resp: 18 Temp: 37.1 C (98.7 F) TempSrc: Oral SpO2: 99% Weight: 56.7 kg (125 lb) Height: 1.702 m (5' 7 ) Medical Decision Making Problems Addressed: Acute nonintractable headache, unspecified headache type: complicated acute illness or injury Tension headache: complicated acute illness or injury Amount and/or Complexity of Data Reviewed Radiology: ordered. Risk Prescription drug management. EMERGENCY DEPARTMENT COURSE and DIFFERENTIAL DIAGNOSIS/MDM: Vitals: Vitals: 11/22/23 1429 BP: 136/72 BP Location: Right arm Patient Position: Sitting Pulse: 85 Resp: 18 Temp: 37.1 C (98.7 F) TempSrc: Oral SpO2: 99% Weight: 56.7 kg (125 lb) Height: 1.702 m (5' 7 ) The patient presented with a chief complaint of headache. The differential diagnosis associated with this patient's presentation includes tumor mass headache tension headache migraine. Our workup consisted of ordering/reviewing CT of the head. I do not believe subarachnoid hemorrhage or meningitis but he is never had headaches before so I think it is reasonable get a CT of the head to make sure is not a tumor. Likely tension headache if that is negative. Will treat him with 1 L of IV fluids. 10 mg IV Reglan 4 mg IV Zofran and 25 mg IV Benadryl. Medicine did not really help the headache. I think this points more towards that this is a tension headache. Not migraine. I do not believe is meningitis. Not the worst of his life. Do not believe lumbar puncture is needed. Will give him 15 of Toradol IV. Will send him home on a short course of Motrin and Flexeril. Will give him a new family doctor he has a primary care doctor in [place] but now lives here. Return here if any problems or concerns. Patient agrees to plan. Neurologically intact. NIH equals 0. Diagnoses as of 11/22/23 1559 Acute nonintractable headache, unspecified headache type Tension headache Diagnostics considered but not indicated based on history, physical, testing: Blood work however not clinically indicated External records reviewed: No previous visits Radiologic diagnostics interpreted by me: film images such as CT, Ultrasound and MRI are read by the radiologist. Plain radiographic images are visualized and preliminarily interpreted by the emergency physician with the below findings: CT scan(s) CT head negative for acute process per radiology. Discussions with other clinicians: none Chronic conditions impacting care: none Social determinants of health affecting care: none Shared decision making: Patient agrees to treatment plan ED Medications managed: Medications ketorolac (Toradol) injection 15 mg (has no administration in time range) diphenhydrAMINE (BENADryl) injection 25 mg (25 mg IntraVENous Given 11/22/231456) metoclopramide (Reglan) injection 10 mg (10 mg IntraVENous Given 11/22/231456) sodium chloride 0.9 % bolus 1,000 mL (1,000 mL IntraVENous New Bag 11/22/231456) ondansetron (Zofran) injection 4 mg (4 mg IntraVENous Given 11/22/231456) Prescription drugs prescribed: Motrin and Flexeril PROCEDURES: Unless otherwise noted below, none Procedures IMPRESSION 1. Acute nonintractable headache, unspecified headache type 2. Tension headache DISPOSITION/PLAN DISPOSITION Discharge 11/22/2023 03:57:20 PM PATIENT REFERRED TO: [facility] Primary [address] [facility] [address] In 1 week DISCHARGE MEDICATIONS: New Prescriptions CYCLOBENZAPRINE (FLEXERIL) 10 MG TABLET Take 1 tablet (10 mg) by mouth 3 times daily as needed for muscle spasms for up to 4 days. IBUPROFEN 800 MG TABLET Take 1 tablet (800 mg) by mouth every 8 hours as needed for mild pain (1-3) for up to 7 days. @[facility]([id number]:LAST:1) @ (Comment: Please notethis report has been produced using speech recognition software and may contain errors related to that system including errors in grammar, punctuation, and spelling, as well as words and phrases that may be inappropriate.If there is any questions or concerns please feel free to contact the dictating provider for clarification). Palomo Daigle MD (electronically signed) Attending Emergency Physician Palomo Daigle MD 11/22/23 7863 [facility] 09-21-2023 History of Presen t illness Narrative Did not keep appointment. I instructed staff to reschedule the patient. documented in this encounter [facility] 09-21-2023 Miscellaneous Notes Did not keep appointment. Reschedule within 3 months documented in this encounter [facility] 09-21-2023 Telephone encounter Note Did not keep appointment. Reschedule within 3 months [facility] 09-17-2023 Miscellaneous Notes Called patient in regards to uncompleted KUB order(07/20/23). LVM to call back if they went somewhere else to get KUB completed. documented in this encounter [facility] 09-17-2023 Telephone encounter Note Called patient in regards to uncompleted KUB order(07/20/23). LVM to call back if they went somewhere else to get KUB completed. [facility] 07-20-2023 History of Presen t illness Narrative Images from the original note were not included. [address] [place] [phone] Patient: Jean Garcia Date of : 2005 Encounter Date: 07/20/2023 History of Present Illness: Chief Complaint: Follow up The patient is a 18 y.o. male, an established patient, and is here for concern for kidney stone and possible varicocele. See below. Urinalysis today: No results for input(s): EXTPOCURCO [...] problem list. Past Medical History: Diagnosis Date Hiatal hernia Keloid History reviewed. No pertinent surgical history. History reviewed. No pertinent family history. No [...] Activity Alcohol Use Never Review of Systems: General: Negative for chills and fever. Cardiovascular: Negative for chest pain and shortness of breath. Gastrointestinal: Negative for constipation, diarrhea, nausea, and vomitting. -per HPI Physical Exam: BP 115/61 Pulse 72 Ht 170.2 cm (5' 7 ) Wt 57.2 kg (126 lb) BMI 19.73 kg/m Alert, pleasant, without signs of acute illness, and in no distress. Respirations unlabored . Skin dry on examination now. Assessment and Plan: Jean was seen today for follow-up. Diagnoses and all orders for this visit: Left varicocele Left testicular pain Urologic disorders Right kidney stone - X-ray abdomen ap 1 view; Future Other microscopic hematuria Epididymal cyst Problem List Unprioritized Urologic disorders Overview 1. Single without paternity with Left [...] 5. By history hypospadias repair at [facility] as an infant 6. Urolithiasis; punctate nonobstructing right upper pole renal stone 06/28/2023 CT; Concern for possible nonobstructing right renal stones ultrasound 05/08/[address] June 2023 Right kidney stone Relevant Orders X-ray abdomen ap 1 view Other microscopic hematuria Left varicocele - Primary Left testicular pain Epididymal cyst Follow-up: Patient returns noting stable intermittent left orchalgia. Admits he does get GERD symptoms at times. I provided independent interpretation of films and reports of CT demonstrating I agree punctate nonobstructing right renal solitary stone, as well as prominent rectal stool and small hiatal hernia. I advised the patient to pursue the non urologic CT findings with primary care. CT report provided to the patient. He does declined offer of semen analysis at this time. No confirmed family history of stones. I advised 2.75 L daily urinary output, low-sodium diet, generous citrate consumption especially lemon related products, and modest animal protein intake for stone prevention. Return 2 months with baseline KUB. Thank you very much. I appreciate being asked to help with this patient's care.. TESSIE DEWITT JR, MD This note was created with the assistance of a speech recognition program. While intending to generate a timely document that accurately reflects the content of the visit, no guarantee can be provided that every grammatical or spelling mistake has been or will be identified or corrected. Thank you for your understanding. documented in this encounter [facility] 06-08-2023 History of Presen t illness Narrative Images from the original note were not included. [address] [place] [phone] Patient: Jean Garcia Date of : 2005 Encounter Date: 06/08/2023 History of Present Illness: Chief Complaint: left orchalgia. See below Urinalysis today: No results for input(s): EXTPOCURCO [...] list. Past Medical History: Diagnosis Date Keloid History reviewed. No pertinent surgical history. History reviewed. No pertinent family history. No [...] Activity Alcohol Use Never Review of Systems: General: Negative for chills and fever. Cardiovascular: Negative for chest pain and shortness of breath. Gastrointestinal: Negative for constipation, diarrhea, nausea, and vomitting. -per HPI Physical Exam: BP 110/61 Pulse 61 Ht 170.2 cm (5' 7 ) Wt 57.2 kg (126 lb) BMI 19.73 kg/m alert, pleasant, without signs of acute illness, and in no distress. Respirations unlabored . Skin dry on examination now. Assessment and Plan: Jean was seen today for follow-up. Diagnoses and all orders for this visit: Left testicular pain - CT abdomen and pelvis without contrast; Future Urologic disorders Other microscopic hematuria Epididymal cyst Left varicocele Right kidney stone - CT abdomen and pelvis without contrast; Future Problem List Unprioritized Urologic disorders Overview 1. Single without paternity with Left orchalgia, progressive onset estimated October 2022 with left varicocele ultrasound elsewhere 12/14/2022, apparent grade 2-3 exam 05/04/2023, not apparent ultrasound 05/08/2023; grandfather Bryan 2. Right epididymal cyst ultrasound elsewhere 1.7 cm on 12/14/2022 3. Concern for microscopic hematuria urine dip elsewhere 03/13/2023 Ruled out by microscopic urinalysis 05/04/2023 4. Significant keloid formation 5. By history hypospadias repair at [facility] as an infant 6. Concern for possible nonobstructing right renal stones ultrasound 05/08/2023 Right kidney stone Relevant Orders CT abdomen and pelvis without contrast Other microscopic hematuria Left varicocele Left testicular pain - Primary Relevant Orders CT abdomen and pelvis without contrast Epididymal cyst Follow-up: Patient returns with improvement in the frequency and intensity of his left-sided orchalgia. No other complaints. Overall has been doing well. I reviewed microscopic urinalysis in fact is negative for microscopic hematuria with less than 1 unless than 1 white cell per high-powered field. Therefore, he does not have clinically significant microscopic hematuria. I provided independent interpretation of films and reports of Retroperitoneal ultrasound, demonstrating I agree hypoechogenicity in the right kidney concerning for possible nonobstructing kidney stone or stones. I provided independent interpretation of films and reports of Scrotal ultrasound, and I discussed the findings also with the reading radiologist. He has right epididymal cyst as before, but no varicocele was seen at this time interestingly. Return 1 month with stone protocol abdominal pelvic CT to further evaluate for possible right kidney stone. Thank you very much. I appreciate being asked to help with this patient's care... TESSIE DEWITT JR, MD This note was created with the assistance of a speech recognition program. While intending to generate a timely document that accurately reflects the content of the visit, no guarantee can be provided that every grammatical or spelling mistake has been or will be identified or corrected. Thank you for your understanding. documented in this encounter [facility] 05-04-2023 History of Presen t illness Narrative Images from the original note were not included. [address] [place] [address] [facility] [phone] Patient: Jean Garcia Date of : 2005 [...] 5. By history hypospadias repair at [facility] as an Other microscopic hematuria Relevant [...] desired by the patient perhaps at [facility]. Thank you very much. I appreciate [...] for your understanding. [facility] Evaluation note Encounter Date Diagnosis Assessment [...] Pt understands and agrees with the plan. [facility] Other Evaluation note* Diagnosis Acute nonintractable headache, unspecified headache type- Primary Tension headache [facility] Diagnosis Headache disorder- Primary Headache documented [facility]* Diagnosis Urologic disorders- Primary Unspecified disorder of urethra and urinary tract Left testicular pain Epididymal cyst Other specified disorder of male genital organs Other microscopic hematuria [facility] Diagnosis Left testicular pain- Primary Urologic disorders Unspecified disorder of urethra and urinary tract Other microscopic hematuria Epididymal cyst Other specified disorder of male genital organs Left varicocele Scrotal varices Right kidney stone [facility] Diagnosis Left varicocele- Primary Scrotal varices Left testicular pain Urologic disorders Unspecified disorder of urethra and urinary tract Right kidney stone Other microscopic hematuria Epididymal cyst Other specified disorder of male genital organs [facility]* Diagnosis Neck pain- Primary Cervicalgia [facility] Diagnosis Chest pain, unspecified type- Primary Neck pain Cervicalgia documented in this encounter [facility] Work Phone: Hospital Discharge instructions* Attachments The following attachments cannot be sent through Care Everywhere. * Headache Discharge Instructions, Adult (Malian) * Tension Headache Discharge Instructions (Malian) [facility] Attachments The following attachments cannot be sent through Care Everywhere. * Headache Discharge Instructions, Adult (Malian) [facility] Attachments The following attachments cannot be sent through Care Everywhere. * Chest Pain, Adult ED (Malian) * Cervical Muscle Strain Discharge Instructions (Malian) [facility] Work Phone: InstructionsNot on filedocumented in this encounter [facility] in [facility] filedocumented in this encounter [facility] filedocumented in this encounter [facility] for [facility] Consultation (Routine) - Pending Review Specialty Diagnoses / Procedures Referred By Svetlana beck Referred To Contact Family Medicine Diagnoses Acute nonintractable headache, unspecified headache type Tension headache Procedures IN OFFICE/OUTPATIENT [facility] 60 MINUTES Palomo Daigle MD [address] [place] [address] [facility] [address] [place] [address] Referral ID Status Reason Start Date Expiration Date Visits Requested Visits Authorized [id number] Pending Review Specialty Services Required 11/22/2023 11/21/2024 1 1 [facility] Consultation (Urgent) - Pending Review Specialty Diagnoses / Procedures Referred By Contac t Referred To Contact Neurology Diagnoses Headache disorder Procedures IN OFFICE/OUTPATIENT [facility] 60 MINUTES Thad Castillo MD [address] [place] [address] [facility] [address] [place] [address] Referral ID Status Reason Start Date Expiration Date Visits Requested Visits Authorized [id number] Pending Review Specialty Services Required 11/26/2023 11/25/2024 1 1 * Consultation (Urgent) - Pending Review Specialty Diagnoses / Procedures Referred By Contac t Referred To Contact Family Medicine Diagnoses Headache disorder Procedures IN OFFICE/OUTPATIENT [facility] 60 MINUTES hTad Castillo MD [address] [place] [address] [facility] [address] [place] [address] [place] [address] Referral ID Status Reason Start Date Expiration Date Visits Requested Visits Authorized [id number] Pending Review Specialty Services Required 11/26/2023 11/25/2024 1 1 [facility] Summary Purpose Family History No Family History [...] Directives Records FoundNo Advanced Directives Records Found Reason for Referral Specialty Diagnoses / Procedures Referred By Svetlana beck Referred To Contact Radiology Diagnoses Left testicular pain Right kidney stone Procedures CT abdomen and pelvis without contrast Tessie Dewitt Jr., MD [facility] [place] [address] Referral ID Status Reason Start Date Expiration Date V isits Requested Visits Authorized [id number] Pending Review 06/08/2023 06/07/2024 1 1 Additional Source Comments REASON FOR VISIT (unrecogniz ed section and content) Reason Comments Headache X3 days Reason Comments Headache Pt reports headache since last Sunday. Came to ED on and received a ct scan/headache cocktail and left ED with no relief of headache. Pt reports he took motrin last night for CANNON without relief but has not kept up on pain medications. Pt denies HX of migraines, took covid test at home that was negative. Reason Comments Varicocele Reason Comments Follow-up Reason Comments Follow-up 1m w / ct prior Reason Comments Neck Pain No injury Reason Comments Neck Pain Neck pain s/p injury Sunday. Removed door from jamb and it fell onto his head/neck. Was seen Sunday at [place] who prescribed Zanaflex. Pt reports they did not image him. Pt reports driving to work today and wasn't able to move his neck so he pulled over and called 911. (unrecognized sect ion and content) No Status Records FoundNo Status Records FoundNo Status Records FoundNo Status Records FoundNo Status Records FoundNo Status Records FoundNo Status Records FoundNo Status Records FoundNo Status Records FoundNo Status Records Found INFORMATION SOURCE (unrecogn ized section and content) DATE CREATED AUTHOR 12/22/2021 [facility] DATE CREATED AUTHOR AUTHOR'S ORGANIZ ATION 03/23/2022 [facility] DATE CREATED AUTHOR AUTHOR'S ORGANIZ ATION 03/03/2023 [facility] DATE CREATED AUTHOR AUTHOR'S ORGANIZ ATION 05/06/2023 [facility] DATE CREATED AUTHOR AUTHOR'S ORGANIZ ATION 06/29/2023 [facility] DATE CREATED AUTHOR AUTHOR'S ORGANIZ ATION 07/22/2023 [facility] DATE CREATED AUTHOR AUTHOR'S ORGANIZ ATION 09/04/2024 [facility] DATE CREATED AUTHOR AUTHOR'S ORGANIZ ATION 09/06/2024 [facility] DATE CREATED AUTHOR AUTHOR'S ORGANIZ ATION 09/06/2024 [facility] DATE CREATED AUTHOR AUTHOR'S ORGANIZ ATION 09/08/2024 [facility] Scheduled Active and Recently Administ ered Medications (unrecognized section and content) Medication Order 11/20/2023 11/21/2023 11/22/2023 diphenhydrAMINE (BENADryl) injection 25 mg (COMPLETED) 25 mg, IntraVENous, Once, On Norah 11/22/23 at 1440, For 1 dose 1457 (Given - Provid er: Artem Mcdonald RN) ketorolac (Toradol) injection 15 mg (COMPLETED) 15 mg, IntraVENous, Once, On Norah 11/22/23 at 1600, For 1 dose 1606 (Given - Provid er: Artem Mcdonald RN) metoclopramide (Reglan) injection 10 mg (COMPLETED) 10 mg, IntraVENous, Once, On Norah 11/22/23 at 1440, For 1 dose 1457 (Given - Provid er: Artem Mcdonald RN) ondansetron (Zofran) injection 4 mg (COMPLETED) 4 mg, IntraVENous, Once, On Norah 11/22/23 at 1440, For 1 dose 1457 (Given - Provid er: Artem Mcdonald RN) sodium chloride 0.9 % bolus 1,000 mL (COMPLETED) 1,000 mL, IntraVENous, at 1,000 mL/hr, Administer over 1 Hours, Once, On Norah 11/22/23 at 1440, For 1 dose 1457 (New Bag - Prov ider: Artem Mcdonald RN)1557 (Stopped - Provider: Artem Mcdonald RN) Scheduled Medication Order 11/24/2023 11/25/2023 11/26/2023 morphine injection 4 mg (COMPLETED) 4 mg, SubCUTAneous, Once, On 11/26/23 at 1855, For 1 dose, If oral and IV narcotics ordered, use oral first and only use IV if oral is ineffective or cannot take oral. Do Not give oral and IV within 1 hour of each other unless specifically ordered. 185 (Given - Provid er: Sanjuanita Krause, SHARLA) Scheduled Medication Order 08/30/2024 08/31/2024 09/01/2024 traMADol (Ultram) tablet 50 mg (COMPLETED) 50 mg, Oral, Once, On Sun09/01/24 at 0030, For 1 dose 0030 (Given - Provid er: Deepika Reeves RN) Scheduled Medication Order 08/31/2024 09/01/2024 09/02/2024 morphine injection 4 mg (COMPLETED) 4 mg, intravenous, Once, On Sun09/02/24 at 0735, For 1 dose 0749 (Given - Provid er: Shazia Vega, SHARLA) ondansetron (Zofran) injection 4 mg (COMPLETED) 4 mg, intravenous, Once, On Sun09/02/24 at 0735, For 1 dose, When administering via IV Push, administer over 3-5 minutes. 0749 (Given - Provid er: Shazia Vega, SHARLA) Care Teams (unrecognized sec tion and content) Asp Developer Relationship Specialty Start Date End Date Lucas Cochran [facility] [place] [address] PCP - General 11/22/23 Asp Developer Relationship Specialty Start Date End Date Lucas Cochran [address] [place] [address] PCP - General 11/22/23 Asp Developer Relationship Specialty Start Date End Date Lucas Cochran [address] [place] [address] PCP - General 11/22/23 Asp Developer Relationship Specialty Start Date End Date Lucas Cochran MD [address] [place] [address] PCP - General Family Medicine 05/07/23 Asp Developer Relationship Specialty Start Date End Date Lucas Cochran MD [facility] [place] [address] PCP - General Family Medicine 05/07/23 Asp Developer Relationship Specialty Start Date End Date Lucas Cochran MD [address] [place] [id number] PCP - General Family Medicine 05/07/23 Asp Developer Relationship Specialty Start Date End Date Lucas Cochran MD [address] [place] [id number] PCP - General Family Medicine 05/07/23 Asp Developer Relationship Specialty Start Date End Date Lucas Cochran [address] [place] [phone] PCP - General 11/22/23 08/31/24 Asp Developer Relationship Specialty Start Date End Date Generic Provider, No [place] [address] PCP - General 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 [facility] [employer] [facility]. provides no warranty or guarantee of the accuracy or completeness of information in this document.
[2024-09-09 09:13] LABS: Hematocrit 45.5 % (42.0-54.0); Hemoglobin 15.7 g/dL (14.0-18.0); Immature Granulocytes Abs Auto 0.01 10^3/uL (0.00-0.03); Immature Granulocytes Pct Auto 0.2 % (0.0-0.5); Lymphocytes Absolute Auto 2.1 10^3/uL (1.2-3.8); Mean Corpuscular HGB Conc 34.5 g/dL (29.9-35.2); Mean Corpuscular Hemoglobin 31.8 pg (25.9-34.0); Mean Corpuscular Volume 92.3 fL (80.0-94.0); Platelet Count 240 10^3/uL (150-450); Red Blood Count 4.93 10^6/uL (4.70-6.10); White Blood Count 4.5 10^3/uL (4.0-11.0)
[2024-09-09 12:29] LABS: Alanine Aminotransferase 23 U/L (16-63); Albumin Globulin Ratio 1.5; Albumin Level 4.9 g/dL (3.4-5.0); Alkaline Phosphatase 67 U/L (46-116); Anion Gap 16.0; Aspartate Amino Transferase 18 U/L (15-37); Blood Urea Nitrogen 13.0 mg/dL (7.0-18.0); Calcium 9.4 mg/dL (8.5-10.1); Carbon Dioxide 26.6 mmol/L (21.0-32.0); Chloride 104 mmol/L (98-107); Estimated GFR (African America >60 (>=60 mL/min/1.73m^2); Estimated GFR (Non-African Ame >60 (>=60 mL/min/1.73m^2); Free T3 3.54 pg/mL (2.18-3.98); Globulin 3.3 g/dL; Glucose 96 mg/dL (74-106); Potassium 3.6 mmol/L (3.5-5.1); Sodium 143 mmol/L (136-145); Thyroid Stimulating Hormone 3.008 uIU/mL (0.358-3.740); Total Protein 8.2 g/dL (6.4-8.2)
== END 2024-09-09 08:57 | disposition home or self-care (01) ==
LOC: LAB 09:00
PROVIDERS: PCP Family Medicine; Visit Provider Family Medicine
DX: R00.2 Palpitations (principal)
CPT/HCPCS: 36415; 80053; 84436; 84443; 84481; 85025

== ENCOUNTER 2024-09-17 13:05 | Outpatient (OUT) | payer OTHER, SELFPAY ==
--- OUTSIDE RECORDS SUMMARY | 2019-12-29 09:09 | XMS_ITS | Continuity of Care Document ---
Author Organization [facility] Address [address] [place] [address] Phone Care Team Providers Care Contact Center Manager Name Role Phone JOSEE Aponte Valerie Unavailable Unavaila ble Procedures Procedure Date PSYTX PT&/FAMILY 45 MINUTES PSYTX PT&/FAMILY 60 MINUTES PSYCH DIAGNOSTIC EVALUATION OFFICE/OUTPATIENT VISIT, EST HEP A VACC, PED/ADOL, 2 DOSE DTAP VACCINE, < 7 YRS, IM OFFICE/OUTPATIENT VISIT, EST MMR VACCINE, SC POLIOVIRUS, IPV, SC/IM CHICKEN POX VACCINE, [place] OFFICE/OUTPATIENT VISIT, EST HEP A VACC, PED/ADOL, 2 DOSE HIB VACCINE, PRP-T, IM MMR VACCINE, SC DTAP-HEP B-IPV VACCINE, IM CHICKEN POX VACCINE, SC PNEUMOCOCCAL VACC, PED <5 Advance Directives Directive Yes / No Effective Date File Name No Information Encounters Encounter Description Practice Location Reason(s) For Visit Diagnoses Date Provider Providers Copied on Encounter [facility], [address], [place], [id number], [place] tel:[phone] Behavorial Health Post-traumati c stress disorder [facility] [address], [place], [id number], [place]. tel:[phone] PSYTX PT&/FAMILY 45 MINUTES [facility], [address], [place], [id number], [place] tel:[phone] Behavorial Health Post-traumati c stress disorder [facility] [address], [place], [id number], [place]. tel:[phone] PSYTX PT&/FAMILY 60 MINUTES [facility], [address], [place], [id number], [place] tel:[phone] Behavorial Health Post-traumati c stress disorder JOSEE Aponte. [address], [place], [id number], [place]. tel:[phone] PSYCH DIAGNOSTIC EVALUATION [facility], [address], [place], [id number], [place] tel:[phone] Behavorial Health Post-traumati c stress disorder [facility]. [address], [place], [id number], [place]. tel:[phone] OFFICE/OUTPAT IENT VISIT, [facility], [address], [place], [id number], [place] tel:[phone] [facility] No Information Edmund Santos. [address], [place], [id number], [place]. tel:[phone] OFFICE/OUTPAT IENT VISIT, [facility], [address], [place], [id number], [place] tel:[phone] [facility] No Information Edmund Santos. [address], [place], [id number], [place]. tel:[phone] OFFICE/OUTPAT IENT VISIT, EST [facility], [address], [place], [id number], [place] tel:[phone] [facility] No Information Edmund Santos. [address], [place], [id number], [place]. tel:[phone] Family History Family Member Type Diagnosis Age At Onset No Information Payers Payer name Insurance type Covered constitution party ID Authorestefania sheldon(s) [facility] [id number] Medicaid Wrap - [facility] [id number] Social History Type Description Quantity Date Captured [...]
--- OUTSIDE RECORDS SUMMARY | 2024-09-09 04:30 | XMS_ITS ---
Author Organization [facility] in [place] Address [address] [place] [address] Care Team Providers Care Patient Educator Name Role Phone Lakhwinder Cochran Primary Care Provider [phone] Allergies No Known Allergies REASON FOR VISIT Heart Issues, A few years ago has irregular heart rate and palpitations, Experiencing same symptomscurrently along with shortness of breath at times Medications Medication SIG (Take, Route, Fr equency, Duration) Notes Start Date End Date Status Meloxicam 15 MG 1 tablet Orally Once a day for 30 days 09/09/2024 Active Social History Tobacco Use: Social History Observation Description Date Details (start date - stop date) Never Smoker NA - NA Tobacco Use/Smoking Question Answer Notes Patient is a nonsmoker AUDIT-C (Standard) Question Answer Notes Did you have a drink containing alcohol in the p ast year? No Points 0 Interpretation Negative Problems Problem Type SNOMED Code ICD Code Onset Dates Problem Status W/U Status Risk Notes Problem Palpitations (42204206) Palpitations (R00.2) Active confirmed Vital Signs Weight 134 lbs 09/09/2024 Height 67 in 09/09/2024 Blood pressure systolic 102 mm Hg 09/10/19 25 Blood pressure diastolic 62 mm Hg 025 BMI 20.99 kg/m2 09/09/2024 Encounters Encounter Location Date Provider Diagnosis [facility] [address] [place] [address] 09/09/2024 Lakhwinder Cochran Palpitations R00.2 Assessments Encounter Date Diagnosis (ICD Code) Assessment Notes Treatment Notes Treatment Clinical Notes Section Notes 09/09/2024 Palpitations (ICD-10 - R00.2) Plan Of Treatment Medication Medication Name Sig Start Date Stop Date Notes Meloxicam 15 MG 1 tablet Orally Once a day for 30 days Pending Test Test Name Order Date THYROID PANEL (T4/TSH/FREE T3) 5 CMP (COMP MET MONTENEGRO) w/eGFR CKD-EPI 2024 CBC WITH DIFF 09/09/2024 Progress Notes * Jean GARCIADOB:2005 (19 yo M)Acc No.[id number]:09/09/2024 Progress Note Patient: Jean FOX Provider: Alvin Cochran ([facility]), :2005 A ge:19 Y S ex:Male Date:09/09/2024 Address:[address] [place] [address] Check In:08:29 AM ESTCheck O ut:08:57 AM EST Subjective: * Chief Complaints: * H eart IssuesA few years ago has irregular heart rate and palpitationsExperiencing same symptoms currently along with shortness of breath at times * HPI: G eneral: Getting heart palpitatiosn again - was seen in er - thoght neck paub 0 tried muskle relaxer - 1 week ago had bad episode - called 911 while driving - and neck still hurting' '. D epression Screening: PHQ-2 (2015 Edition) L ittle interest or pleasure in doing things??Not at all F eeling down, depressed, or hopeless? N ot at all T otal Score 0 * ROS: E ENT: hearing changes d enies. v isual changes d enies.?non-healing mouth sores d enies. s wollen glands or neck lumps d enies. h oarseness d enies. s ore throat d enies. d ifficulty swallowing d enies. n ose bleeds d enies. n rosalba congestion d enies. e ar ache d enies. e ar discharge?denies. r inging in ears d enies. l ight sensitivity d enies. e ye pain d enies. b lurring d enies. e ye irritation d enies. d ouble vision d enies.?vision loss d enies. G eneral/Constitutional: Sweats: D enies. F atigue d enies. S leep problems d enies. A norexia d enies. M alaise d enies. W eight loss d enies.?Fatigue or Weakness d enies. F ever or Chills d enies. C ardiovascular: Shortness of Breath w/lying flat d enies. L ightheadedness/dizziness d enies. C hest tightness/ heavy pressure d enies. S welling of legs, ankles, or feet d enies. W aking up with shortness of breath d enies. C hest pain denies. P alpitations d enies. W eight gain d enies. R espiratory: Chronic or frequent cough d enies. C oughing up blood?denies. D ifficulty breathing d enies. P roductive cough d enies. S noring?denies. S hortness of breath that awakens from sleep (PND) d enies. C hest pain d enies. S putum production d enies. W heezing d enies. M usculoskeletal: Joint pain d enies. J oint Fluid d enies. B ack pain d enies. K nee pain d enies. N navin pain d enies. J oint Stiffness d enies. M uscle cramps d enies. W eakness of muscles d enies. A rthritis d enies. M uscle aches d enies. P ain in shoulder(s) d enies. S wollen joints d enies. 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 M other: alive. B rother(s): alive. S ister(s): alive. 5 brother(s) , 2 sister(s) - healthy. . * Social History: T obacco Use: T obacco Use/Smoking P atient is a n onsmoker D rug/Alcohol: A JOSE-C (Standard) D id you have a drink containing alcohol in the past year? N o P oints 0 I nterpretation N egative * Medications: N one * Allergies: N .K.D.A.no[Allergies Verified] Objective: * Vitals: W t:134lbs, Ht: 67 in, BP:102/62mm Hg, BMI:20.99Index, Ht-cm: 170.18 cm, Wt-k.78 kg. * Examination: P hysical Exam: GENERAL: w ell developed, well nourished, in no acute distress. HEAD: n ormocephalic/atraumatic. EYES: p upils equal, round and reactive to light, conjunctivae and sclerae normal. EARS: n o deformity or lesion of external ear, canals and TM appear normal bilaterally, TM's intact, not inflamed with normal light reflex, hearing grossly normal to conversational speech. NOSE: n o deformity, discharge, inflammation, or lesions.? MOUTH: m ucous membranes moist, normal oropharynx and posterior pharynx without lesions or exudates, tongue normal, dentition normal. NECK: n navin supple, no masses or palpable cervical nodes, trachea midline, thyroid without nodules, masses, tenderness, or enlargement. CHEST: n o chest wall deformity, no chest wall tenderness.? LUNGS: n ormal respiratory effort and clear to auscultation, no wheezes, rales, or rhonchi, good air exchange. CARDIO: m ild tachycardia - no murmur. PULSES: n ormal capillary refill. ABDOMEN: s oft, non-distended, non-tender, no masses. MUSCULOSKELETAL: n o deformity or scoliosis noted, normal range of motion, joints normal, no erythema, edema, effusion, or ecchymosis. EXTREMITY: n o clubbing, cyanosis, edema, or deformity with normal ROM in both upper and lower bilateral extremities. NEUROLOGIC: g rossly normal. SKIN: n o rashes, ulcerations, or suspicious lesions. LYMPH NODES: n o cervical adenopathy, nodes normal. MENTAL STATUS: a lert and oriented x3, normal mood and affect. Assessment: * Assessment: 1. P alpitations - R00.2 (Primary) Plan: * Treatment: * Procedure Codes: * * Sign off status: Completed Visit Status: C HK (Check Out) true * Provider: Alvin Cochran ([facility])MD Date: 0 09/09/2024 Generated for Printi ng/Faxing/eTransmitting on: 0 09/17/2024 01:08 PM EDT History and Physical Notes * HPI (History of Present Illness) Category Sub-Category Detail Notes Category Not es General Getting heart palpitatiosn again - was seen in er - oght neck paub 0 tried muskle relaxer - 1 week ago had bad episode - called 911 while driving - and neck still hurting' ' Depression Screening PHQ-2 (2015 Edition) Little interest or pleasure in doing things?: Not at all Feeling down, depressed, or hopeless?: N ot at all Total Score: 0 Examination Category Sub-Category Detail Notes Category Not es Physical Exam GENERAL: well developed, well nourished, in no acute distress HEAD: normocephalic/atraum atic EYES: pupils equal, round and reactive to light, conjunctivae and sclerae normal EARS: no deformity or lesi on of external ear, canals and TM appear normal bilaterally, TM's intact, not inflamed with normal light reflex, hearing grossly normal to conversational speech NOSE: no deformity, discha rge, inflammation, or lesions MOUTH: mucous membranes lukasz st, normal oropharynx and posterior pharynx without lesions or exudates, tongue normal, dentition normal NECK: neck supple, no mass es or palpable cervical nodes, trachea midline, thyroid without nodules, masses, tenderness, or enlargement CHEST: no chest wall deform ity, no chest wall tenderness LUNGS: normal respiratory e ffort and clear to auscultation, no wheezes, rales, or rhonchi, good air exchange CARDIO: mild tachycardia - n o murmur PULSES: normal capillary ref ill ABDOMEN: soft, non-distended, non-tender, no masses RECTAL: MUSCULOSKELETAL: no deformity or scol iosis noted, normal range of motion, joints normal, no erythema, edema, effusion, or ecchymosis EXTREMITY: no clubbing, cyanosi s, edema, or deformity with normal ROM in both upper and lower bilateral extremities NEUROLOGIC: grossly normal SKIN: no rashes, ulceratio ns, or suspicious lesions LYMPH NODES: no cervical adenopat hy, nodes normal MENTAL STATUS: alert and oriented x 3, normal mood and affect
--- OUTSIDE RECORDS SUMMARY | 2024-09-09 04:40 | XMS_ITS ---
Author Organization [facility] in [place] Address [address] [place] [address] Care Team Providers Care Stone Planer Name Role Phone Lakhwinder Cochran Primary Care Provider [phone] REASON FOR VISIT old reports and ER report Problems Problem Type SNOMED Code ICD Code Onset Dates Problem Status W/U Status Risk Notes Problem Persistent left superior vena cava (81387908) Persistent left superior vena cava (Q26.1) Active confirmed Procedures Procedure Date Ordered Date Performed Result Body Sit e Echocardiogram 09/09/2024 N/A Encounters Encounter Location Date Provider Diagnosis [facility] [address] [place] [address] 09/09/2024 Lakhwinder Cochran Persistent left superior vena cava Q26.1 Assessments Encounter Date Diagnosis (ICD Code) Assessment Notes Treatment Notes Treatment Clinical Notes Section Notes 09/09/2024 Persistent left superior vena cava (ICD-10 - Q26.1) Plan Of Treatment Pending Test Test Name Order Date Echocardiogram 09/09/2024 Progress Notes * Jean GARCIADOB:2005 (19 yo M)Acc No.[id number]:09/09/2024 Patient: Jean FOX :2005 A ge:19 Y S ex:Male Address:[address] [place], [address] Subjective: * Chief Complaints: * o ld reports and ER report * Medical History: * Surgical History: * Hospitalization/Major Diagno stic Procedure: * Medications: Objective: * Vitals: * Physical Examination: Assessment: * Assessment: 1. P ersistent left superior vena cava - Q26.1 (Primary) Plan: * Treatment: * Procedure Codes: * true * Date: Generated for Paul fierro/Konstantin/Gerry on: 09/17/2024 01:07 PM EDT
--- NOTE | 2024-09-17 13:00 | CA_ITS ---
Patient Name: ARNALDO ASCENCIO MR#: [id number] : 2005 Exam Date: 09/17/2024 Ordering Doctor: DR LUCAS SANON . ECHOCARDIOGRAM REPORT PROCEDURE: CA ECHO DOPPLER COMPLETE INDICATIONS: Persistent left superior vena cava COMPARISON: None. DESCRIPTION: COMPLETE ECHOCARDIOGRAM Real-time transthoracic echocardiography with 2D, M-mode, spectral and color flow Doppler performed. QUALITY: Technical quality was good. LEFT VENTRICLE: Normal chamber size. Normal left ventricular wall thickness. Normal systolic function. LV EF: Normal left ventricular ejection fraction, (>55%). DIASTOLIC: Normal diastolic function. ATRIAL SEPTUM: Visually appears intact. LEFT ATRIUM: Normal chamber size. RIGHT ATRIUM: Normal chamber size. The coronary sinus is enlarged consistent with possible persistent left superior vena cava. RIGHT VENTRICLE: Normal chamber size. Normal right ventricular systolic function. TRICUSPID VALVE: Normal mobility and thickness. No stenosis with no regurgitation. Unable to assess right-sided pressures due to lack of measurable tricuspid regurgitation. MITRAL VALVE: Normal mobility and thickness. No evidence of mitral valve stenosis. There is no mitral annular calcification. No mitral regurgitation. AORTIC VALVE: Normal trileaflet appearance. No visible sclerosis. Normal leaflet mobility. No evidence of aortic valve stenosis. No aortic regurgitation. AORTIC ROOT: Normal diameter and appearance, measuring 3.2 cm. PULMONIC VALVE: Normal thickness and mobility. No stenosis. Trivial regurgitation. PERICARDIUM: No evidence of pericardial effusion. IVC: Collapses with inspiration. IVC is normal in size. PLEURA: CONCLUSION: 1. Normal ventricular size and systolic function. Estimated LVEF is 65-70%. 2. Normal diastolic function. 3. No significant valvular dysfunction. 4. Unable to assess right-sided pressures due to lack of measurable tricuspid regurgitation. 5. The coronary sinus is enlarged consistent with possible persistent left superior vena cava. Adult Echocardiography Procedure Report Left Ventricle LVEDD (3.7 - 5.6 cm): 4.13 cm LVESD (2.2 - 4.0 cm): 2.97 cm LVIVS thickness (0.6 - 1.2 cm): 0.77 cm LVPW thickness (0.5 - 1.0 cm): 0.83 cm e': 0.18 m/s E - e': 5.64 LVOT Max Gradient: 5.08 mm[Hg] LVOT Area (cm2): 1.13 m/s Peak Velocity (LVOT): 1.13 m/s Mean Velocity (LVOT): 0.73 m/s LVOT Diameter 2.38 cm Left Ventricular Ejection Fraction: 65-70 % Left Atrium LA Volume Index (2D A2C): 22.80 ml/m2 Left Atrium Systolic Dimension: 3.01 cm Mitral Valve MV E to A Ratio: 1.93 Mitral Valve A-Wave Peak Velocity: 0.51 m/s Mitral Valve E-Wave Peak Velocity: 0.99 m/s Right Ventricle Aorta AO Root Diam: 3.18 cm Aortic Valve AoV Area (Peak Ky): 3.51 cm2, 3.51 cm2 AoV Area (VTI): 3.22 cm2, 3.22 cm2 Peak Velocity(Antegrade Flow): 1.43 m/s Peak Gradient(Antegrade Flow): 8.22 mm[Hg] Mean Velocity(Antegrade Flow): 0.97 m/s Mean Gradient(Antegrade Flow): 4.32 mm[Hg] Velocity Time Integral: 29.28 cm Tricuspid Valve Pulmonic Valve Peak Gradient: 6.13 mm[Hg], 6.56 mm[Hg] Right Atrium Right Atrium Systolic Pressure: 35.27 ml, 35.27 ml Dictated by: Otto Piedra M.D. on 09/17/2024 at 19:06 Approved by: Otto Piedra M.D. on 09/17/2024 at 19:10
--- OUTSIDE RECORDS SUMMARY | 2024-09-17 13:07 | XMS_ITS | Clinical Summary ---
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
--- OUTSIDE RECORDS SUMMARY | 2024-09-17 13:08 | XMS_ITS | Patient Health Record ---
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 Role Phone Lakhwinder Cochran Primary Care Provider Allergies No Known Allergies Results Component Value Reference Range Notes FREE T3 Reviewed date:09/09/2024 04:35:12 PM Interpretation: Performing Lab: Notes/Report: [facility] , Free T3 3.54 2.18-3.98 pg/mL Performing Lab: see note ML - [facility] LB PROF 14(COMP METB) Reviewed date:09/09/2024 04:35:12 PM Interpretation: Performing Lab: Notes/Report: [facility] , Sodium 143 136-145 mmol/L Potassium 3.6 3.5-5.1 mmol/L Chloride 104 98-107 mmol/L Carbon Dioxide 26.6 21.0-32.0 mmol/L Anion Gap 16.0 Glucose 96 74-106 mg/dL Blood Urea Nitrogen 13.0 7.0-18.0 mg/dL Creatinine 1.03 0.70-1.30 mg/dL Estimated GFR ( Corrine >60 >=60 mL/mi n/1.73m 2 Estimated GFR (Non- Kirsten >60 >=60 mL/mi n/1.73m 2 BUN Creatinine Ratio 12.6 Calcium 9.4 8.5-10.1 mg/dL Bilirubin Total 0.8 0.2-1.0 mg/dL Aspartate Amino Transferase 18 15-37 U/L Alanine Aminotransferase 23 16-63 U/L Alkaline Phosphatase 67 46-116 U/L Total Protein 8.2 6.4-8.2 g/dL Albumin Level 4.9 3.4-5.0 g/dL Globulin 3.3 Albumin Globulin Ratio 1.5 Performing Lab: see note ML - [facility] LB T4 Reviewed date:09/09/2024 04:35:12 PM Interpretation: Performing Lab: Notes/Report: [facility] , T4 Thyroxine 6.70 4.50-12.10 ug/dL Performing Lab: see note ML - [facility] LB TSH Reviewed date:09/09/2024 04:35:12 PM Interpretation: Performing Lab: Notes/Report: [facility] , Thyroid Stimulating Hormone 3.008 0.358-3.740 u IU/mL Performing Lab: see note ML - [facility] LB CBC AUTO DIFF Reviewed date:09/09/2024 04:35:12 PM Interpretation: Performing Lab: Notes/Report: [facility] , White Blood Count 4.5 4.0-11.0 10 3/uL Red Blood Count 4.93 4.70-6.10 10 6/uL Hemoglobin 15.7 14.0-18.0 g/dL Hematocrit 45.5 42.0-54.0 % Mean Corpuscular Volume 92.3 80.0-94.0 fL Mean Corpuscular Hemoglobin 31.8 25.9-34.0 pg Mean Corpuscular HGB Conc 34.5 29.9-35.2 g/dL Red Cell Distribution Width 11.6 11.0-15.0 % Platelet Count 240 150-450 10 3/uL Mean Platelet Volume 8.8 9.5-13.5 fL Neutrophils Percent Auto 40.3 43.0-75.0 % Lymphocytes Percent Auto 45.7 20.5-60.0 % Monocytes Percent Auto 11.8 1.7-12.0 % Eosinophils Percent Auto 0.7 0.9-7.0 % Basophils Percent Auto 1.3 0.2-2.0 % Immature Granulocytes Pct Auto 0.2 0.0-0.5 % Neutrophils Absolute Auto 1.8 1.4-6.5 10 3/uL Lymphocytes Absolute Auto 2.1 1.2-3.8 10 3/uL Monocytes Absolute Auto 0.5 0.3-0.8 10 3/uL Eosinophils Absolute Auto 0.0 0.0-0.7 10 3/uL Basophils Absolute Auto 0.1 0.0-0.1 10 3/uL Immature Granulocytes Abs Auto 0.01 0.00-0.03 10 3/uL Performing Lab: see note ML - [facility] Reason For Referral No Information Medications Medication SIG (Take, Route, Fr equency, Duration) Notes Start Date End Date Status Meloxicam 15 MG 1 tablet Orally Once a day for 30 days 09/09/2024 Active Social History Tobacco Use: Social History Observation Description Date Details (start date - stop date) Never Smoker NA - NA Tobacco Use/Smoking Question Answer Notes Patient is a nonsmoker Alcohol Screen (Audit-C) Question Answer Notes Did you have a drink containing alcohol in the p ast year? No Points 0 Interpretation Negative AUDIT-C (Standard) Question Answer Notes Did you have a drink containing alcohol in the p ast year? 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 [address] [place] [address] 08/13/2024 Lakhwinder Cochran [facility] [address] [place] [address] 09/09/2024 Lakhwinder Hoy Persistent left supe rior vena cava Q26.1 [facility] [address] [place] [address] 09/09/2024 Lakhwinder Cochran [facility] [address] [place] [address] 09/09/2024 Lakhwinder Hoy Palpitations R00.2 Assessments Encounter Date Diagnosis (ICD Code) Assessment Notes Treatment Notes Treatment Clinical Notes Section Notes 09/09/2024 Palpitations (ICD-10 - R00.2) 09/09/2024 Persistent left superior vena cava (ICD-10 - Q26.1) Plan Of Treatment Pending Test Test Name Order Date Echocardiogram 09/09/2024 US SCROTUM W VASCULAR ORGAN 12/11/2022 THYROID PANEL (T4/TSH/FREE T3) CMP (COMP MET MONTENEGRO) w/eGFR CKD-EPI 2024 CBC WITH DIFF 09/09/2024 Insurance Providers Payer Name Payer Address Payer Phone Subscriber Number Group Number Insured Name Patient Relationship to Insured Coverage Start Date Coverage End Date R [address] [place] [address] [phone] [id number] Luis Carlos Garcia Child - Insured has Financial Responsibility
--- OUTSIDE RECORDS SUMMARY | 2024-09-17 13:08 | XMS_ITS | Clinical Summary ---
Author Organization [facility] Address [address] [place] [address] Phone Care Team Providers Care Mold Presser Name Role Phone Generic Provider, No Assigned Pcp MD Primary Car e Provider Unavailable Allergies No known active allergies Medications No known medications Encounters Date Type Department Care Team Description 09/02/2024 7:23 AM EDT - 09/02/2024 9:33 AM EDT Emergency [facility] Emergency Medicine [address] [place] [address] Reno Keen DO Chest pain, [...] Description 10/09/2024 8:40 AM EDT Office Visit [facility] [address] [place] [id number] Cliff Fernandes, RUBBER CUTTER-TRUCK BENCH MECHANIC [address] [facility], [address] [place] [address] Health Maintenance Due Date Last Done Comments [...] Sensitivity, 1 Hour (09/02/2024 8:44 AM EDT) [facility] Troponin I, High Sensitivity 3 0 - 20 ng/L LAB IMMUNOASSAY METHOD 09/02/2024 9:17 AM EDT [facility] Blood Venous blood specimen / Unknown Venipuncture / Unknown 09/02/2024 8:44 AM EDT 09/02/2024 8:46 AM EDT [facility] - 09/02/2024 9:17 AM EDT [...] performed using a different testing methodology at [facility] than at other [facility]. Direct result comparisons should only be made within the same method. us Reno Keen DO LAB BLOOD ORDERABLES Final R esult [facility] [address] [place] [address] * CT cervical spine wo IV contrast (09/02/2024 8:05 AM EDT) Anatomical Region Laterality Modality Neuro Computed Tomogra phy 09/02/2024 8:23 AM EDT 09/02/2024 8:23 AM EDT Impressions 09/02/2024 8:22 AM EDT No evidence of an acute fracture or subluxation. MACRO: None. Signed by: Mic Moffett 09/02/2024 8:22 AM Dictation workstation: [id number] Narrative 09/02/2024 8:22 AM EDT Interpreted By: Mic Moffett, STUDY: CT CERVICAL SPINE WO IV CONTRAST; 09/02/2024 8:05 am INDICATION: Signs/Symptoms:neck trauma. COMPARISON: None. ACCESSION NUMBER(S): [id number] ORDERING CLINICIAN: RENO KEEN TECHNIQUE: Unenhanced axial [...] INDICATION: Signs/Symptoms:neck trauma. COMPARISON: None. ACCESSION NUMBER(S): [id number] ORDERING CLINICIAN: RENO KEEN TECHNIQUE: Unenhanced axial [...] Mic Moffett 09/02/2024 8:22 AM Dictation workstation: [id number] us Reno Keen DO IMG CT PROCEDURES Final Resu lt * CT head wo IV contrast (09/02/2024 8:05 AM EDT) Anatomical Region Laterality Modality Neuro Computed Tomogra phy 09/02/2024 8:22 AM EDT 09/02/2024 8:22 AM EDT Impressions 09/02/2024 8:21 AM EDT No evidence of an acute intracranial process. MACRO: None. Signed by: Mic Moffett 09/02/2024 8:21 AM Dictation workstation: [id number] Narrative 09/02/2024 8:21 AM EDT Interpreted By: Mic Moffett, STUDY: CT HEAD WO IV CONTRAST; 09/02/2024 8:05 am INDICATION: Signs/Symptoms:head trauma. COMPARISON: None. ACCESSION NUMBER(S): [id number] ORDERING CLINICIAN: RENO KEEN TECHNIQUE: Unenhanced images [...] INDICATION: Signs/Symptoms:head trauma. COMPARISON: None. ACCESSION NUMBER(S): [id number] ORDERING CLINICIAN: RENO KEEN TECHNIQUE: Unenhanced images [...] Mic Moffett 09/02/2024 8:21 AM Dictation workstation: [id number] us Reno Keen DO IMG CT PROCEDURES Final Resu lt * CBC and Auto Differential (09/02/2024 7:48 AM EDT) WBC 4.4 4.4 - 11.3 x10*3/uL LAB HEMATOLOGY [facility] nRBC 0.0 0.0 - 0.0 /100 WBCs LAB HEMATOLOGY METHOD 09/02/2024 7:58 AM [facility] RBC 4.73 4.50 - 5.90 x10*6/uL LAB HEMATOLOGY METHOD 09/02/2024 7:58 AM [facility] Hemoglobin 14.7 13.5 - 17.5 g/dL LAB HEMATOLOGY METHOD 09/02/2024 7:58 AM [facility] Hematocrit 43.2 41.0 - 52.0 % LAB HEMATOLOGY METHOD 09/02/2024 7:58 AM [facility] MCV 91 80 - 100 fL LAB HEMATOLOGY METHOD 09/02/2024 7:58 AM [facility] MCH 31.1 26.0 - 34.0 pg LAB HEMATOLOGY METHOD 09/02/2024 7:58 AM [facility] MCHC 34.0 32.0 - 36.0 g/dL LAB HEMATOLOGY METHOD 09/02/2024 7:58 AM [facility] RDW 11.8 11.5 - 14.5 % LAB HEMATOLOGY METHOD 09/02/2024 7:58 AM [facility] Platelets 228 150 - 450 x10*3/uL LAB HEMATOLOGY METHOD 09/02/2024 7:58 AM [facility] Neutrophils % 45.7 40.0 - 80.0 % LAB HEMATOLOGY METHOD 09/02/2024 7:58 AM [facility] Immature Granulocytes %, Automated 0.2 0.0 - 0.9 % LAB HEMATOLOGY METHOD 09/02/2024 7:58 AM [facility] Comment:Immature Granulocyte Count (IG) includes promyelocytes, myelocytes and metamyelocytes but does not include bands. Percent differential counts (%) should be interpreted in the context of the absolute cell counts (cells/UL). Lymphocytes % 42.4 13.0 - 44.0 % LAB HEMATOLOGY METHOD 09/02/2024 7:58 AM [facility] Monocytes % 8.5 2.0 - 10.0 % LAB HEMATOLOGY METHOD 09/02/2024 7:58 AM [facility] Eosinophils % 1.8 0.0 - 6.0 % LAB HEMATOLOGY METHOD 09/02/2024 7:58 AM [facility] Basophils % 1.4 0.0 - 2.0 % LAB HEMATOLOGY METHOD 09/02/2024 7:58 AM [facility] Neutrophils Absolute 1.99 1.20 - 7.70 x10*3/uL LAB HEMATOLOGY METHOD 09/02/2024 7:58 AM [facility] Comment:Percent differential counts (%) should be interpreted in the context of the absolute cell counts (cells/uL). Immature Granulocytes Absolute, Automated 0.01 0.00 - 0.70 x10*3/uL LAB HEMATOLOGY METHOD 09/02/2024 7:58 AM [facility] Lymphocytes Absolute 1.85 1.20 - 4.80 x10*3/uL LAB HEMATOLOGY METHOD 09/02/2024 7:58 AM [facility] Monocytes Absolute 0.37 0.10 - 1.00 x10*3/uL LAB HEMATOLOGY METHOD 09/02/2024 7:58 AM [facility] Eosinophils Absolute 0.08 0.00 - 0.70 x10*3/uL LAB HEMATOLOGY METHOD 09/02/2024 7:58 AM EDT [facility] Basophils Absolute 0.06 0.00 - 0.10 x10*3/uL LAB HEMATOLOGY METHOD 09/02/2024 7:58 AM EDT [facility] Blood Venous blood specimen / Unknown Venipuncture / Unknown 09/02/2024 7:48 AM EDT 09/02/2024 7:56 AM EDT Reno Keen DO LAB BLOOD ORDERABLES Final R esult [facility] [address] [place] [address] * Troponin I, High Sensitivity, Initial (09/02/2024 7:48 AM EDT) Pathologist [facility] Troponin I, High Sensitivity 3 0 - 20 ng/L LAB IMMUNOASSAY METHOD 09/02/2024 8:23 AM EDT [facility] Blood Venous blood specimen / Unknown Venipuncture / Unknown 09/02/2024 7:48 AM EDT 09/02/2024 7:56 AM EDT Narrative [facility] - 09/02/2024 8:23 AM EDT [...] performed using a different testing methodology at [facility] than at other [facility]. Direct result comparisons should only be made within the same method. us Reno Keen DO LAB BLOOD ORDERABLES Final R esult Performing Organization Address City/[facility]/ZIP Co de Phone Number [facility] [address] [place] [address] * Magnesium (09/02/2024 7:48 AM EDT) [facility] Magnesium 1.98 1.60 - 2.40 mg/dL LAB CHEMISTRY METHOD 09/02/2024 8:15 AM EDT [facility] Blood Venous blood specimen / Unknown Venipuncture / Unknown 09/02/2024 7:48 AM EDT 09/02/2024 7:56 AM EDT Reno Keen DO LAB BLOOD ORDERABLES Final R esult Performing Organization Address [facility]/ZIP Co de Phone Number [facility] [place] [address] * (ABNORMAL) Comprehensive Metabolic Panel (09/02/2024 7:48 AM EDT) [facility] Glucose 94 74 - 99 mg/dL LAB CHEMISTRY METHOD 09/02/2024 8:15 AM [facility] Sodium 138 136 - 145 mmol/L LAB CHEMISTRY METHOD 09/02/2024 8:15 AM [facility] Potassium 4.0 3.5 - 5.3 mmol/L LAB CHEMISTRY METHOD 09/02/2024 8:15 AM [facility] Chloride 105 98 - 107 mmol/L LAB CHEMISTRY METHOD 09/02/2024 8:15 AM [facility] Bicarbonate 28 21 - 32 mmol/L LAB CHEMISTRY METHOD 09/02/2024 8:15 AM [facility] Anion Gap 9(L) 10 - 20 mmol/L LAB CHEMISTRY METHOD 09/02/2024 8:15 AM [facility] Urea Nitrogen 11 6 - 23 mg/dL LAB CHEMISTRY METHOD 09/02/2024 8:15 AM [facility] Creatinine 1.04 0.50 - 1.30 mg/dL LAB CHEMISTRY METHOD 09/02/2024 8:15 AM [facility] eGFR >90 >60 mL/min/1. 73m*2 LAB CHEMISTRY METHOD 09/02/2024 8:15 AM [facility] Comment: Calculations of estimated GFR are performed using the 2020 CKD-EPI Study Refit equation without the race variable for the IDMS-Traceable creatinine methods. https://jasn.asnjournals.org/content//ASN.1268456685 Calcium 9.2 8.6 - 10.3 mg/dL LAB CHEMISTRY METHOD 09/02/2024 8:15 AM EDT [facility] Albumin 4.7 3.4 - 5.0 g/dL LAB CHEMISTRY METHOD 09/02/2024 8:15 AM [facility] Alkaline Phosphatase 55 33 - 120 U/L LAB CHEMISTRY METHOD 09/02/2024 8:15 AM [facility] Total Protein 6.9 6.4 - 8.2 g/dL LAB CHEMISTRY METHOD 09/02/2024 8:15 AM [facility] AST 13 9 - 39 U/L LAB CHEMISTRY METHOD 09/02/2024 8:15 AM [facility] Bilirubin, Total 0.5 0.0 - 1.2 mg/dL LAB CHEMISTRY METHOD 09/02/2024 8:15 AM [facility] ALT 10 10 - 52 U/L LAB CHEMISTRY METHOD 09/02/2024 8:15 AM [facility] Comment:Patients treated wit h Sulfasalazine may generate falsely decreased results for ALT. Blood Venous blood specimen / Unknown Venipuncture / Unknown 09/02/2024 7:48 AM EDT 09/02/2024 7:56 AM EDT us Reno Keen DO LAB BLOOD ORDERABLES Final R esult [facility] [address] [place] [address] * XR chest 1 view (09/02/2024 7:39 AM EDT) Anatomical Region Laterality Modality Thoracic, Chest Computed Radiogr aphy 09/02/2024 8:21 AM EDT 09/02/2024 8:21 AM EDT Impressions 09/02/2024 8:19 AM EDT No radiographic evidence of an acute cardiopulmonary process. MACRO: None. Signed by: Mic Moffett 09/02/2024 8:19 AM Dictation workstation: [id number] Narrative 09/02/2024 8:19 AM EDT Interpreted By: Mic Moffett, STUDY: XR CHEST 1 VIEW; 09/02/2024 7:39 am INDICATION: Signs/Symptoms:Chest Pain. COMPARISON: None. ACCESSION NUMBER(S): [id number] ORDERING CLINICIAN: RENO KEEN FINDINGS: CHEST/LUNGS: The cardiac and mediastinal silhouettes are within normal limits for the technique. No focal areas of consolidation are noted. No effusion or pneumothorax is seen. UPPER ABDOMEN: No remarkable upper abdominal findings. OSSEOUS STRUCTURES: No acute changes. Procedure Note Mic Mofeftt MD - 09/02/2024 Interpreted By: Mic Moffett, STUDY: XR CHEST 1 VIEW; 09/02/2024 7:39 am INDICATION: Signs/Symptoms:Chest Pain. COMPARISON: None. ACCESSION NUMBER(S): [id number] ORDERING CLINICIAN: RENO KEEN FINDINGS: CHEST/LUNGS: The cardiac and mediastinal silhouettes are within normal limits for the technique. No focal areas of consolidation are noted. No effusion or pneumothorax is seen. UPPER ABDOMEN: No remarkable upper abdominal findings. OSSEOUS STRUCTURES: No acute changes. IMPRESSION: No radiographic evidence of an acute cardiopulmonary process. MACRO: None. Signed by: Mic Moffett 09/02/2024 8:19 AM Dictation workstation: [id number] us Reno Keen DO IMG XR PROCEDURES Final Resu lt * ECG 12 lead (09/02/2024 7:33 AM EDT) Ventricular Rate 69 BPM MUSE Atrial Rate 69 BPM MUSE [place] Interval 140 ms MUSE QRS Duration 92 ms MUSE QT Interval 364 ms MUSE QTC Calculation(Baze tt) 390 ms MUSE P [place] 38 degrees MUSE R [place] 76 degrees MUSE T [place] 50 degrees MUSE QRS Count 11 beats [...] and clinical correlation Confirmed by Marisa Sexton ([id number]) on 09/06/2024 11:43:37 AM Procedure Note Marisa Sexton PA-C - 09/06/2024 Normal sinus rhythm Normal ECG No previous ECGs available See ED provider note for full interpretation and clinical correlation Confirmed by Marisa Sexton ([id number]) on 09/06/2024 11:43:37 AM Reno Keen DO ECG ORDERABLES Final Result Performing Organization Address City/State/[facility] Co de Phone Number MUSE from Last 3 Months Insurance [employer] [place] [employer] Care Teams Mold Presser Relationship Specialty Start Date End Date Generic Provider, [place] [address] PCP - General Side Trimmer 09/02/24
--- OUTSIDE RECORDS SUMMARY | 2024-09-17 13:08 | XMS_ITS | Clinical Summary ---
Author Organization [email or web address] Address [id number] [address] [place] [address] Care Team Providers Care Orthotics Prosthetics Assistant Name Role Phone Jaime Cochran MD Primary Care Provider [phone] Allergies No known active allergies Medications No [...] By history hypospadias repair at [facility] as an infant 6. Urolithiasis; punctate nonobstructing [...] exists Medical Devices Not on file Insurance [employer] Care Teams Orthotics Prosthetics Assistant Relationship Specialty Start Date End Date Jaime Cochran MD PCP - General Family Medicine 05/07/23
--- OUTSIDE RECORDS SUMMARY | 2024-09-17 13:08 | XMS_ITS | Clinical Summary ---
Author Organization [facility] Address [address] [place] [address] Care Team Providers Care Belt Turner Name Role Phone Jaime Cochran MD Primary Care Provider [phone] Allergies No known active allergies Social History [...] Plan of Treatment Not on file Insurance [employer] [facility] [employer] PPO Care Teams Belt Turner Relationship Specialty Start Date End Date Jaime Cochran MD [address] [place] [address] PCP - General Family Medicine 11/02/21
--- OUTSIDE RECORDS SUMMARY | 2024-09-17 13:08 | XMS_ITS | Clinical Summary ---
Author Organization [facility] Address [address] [place] [address] Care Team Providers Care Senior Litigation Paralegal Name Role Phone Unavailable Primary Care Provider [...]
== END 2024-09-17 13:06 | disposition home or self-care (01) ==
LOC: CARD 13:06
PROVIDERS: PCP Family Medicine; Visit Provider Family Medicine
DX: Q26.1 Persistent left superior vena cava (principal)
CPT/HCPCS: 93306